=== PATIENT | female | born 1945 | race Caucasian/White ===

== ENCOUNTER 2019-09-27 10:25 | Emergency (ER) | payer MEDICARE, SELFPAY ==
[2019-09-27 10:30] VITALS: BP 157/70; PULSE 52; RESP 18; TEMP 36.6; O2SAT 100
--- NOTE | 2019-09-27 10:39 | ED.GENADULT ---
HPI - General Adult General Chief complaint: Urogenital-Female Stated complaint: UTI SYMPTOMS Time Seen by Provider: 09/27/19 10:54 Source: patient Mode of arrival: ambulatory Limitations: no limitations History of Present Illness HPI narrative: 74-year-old female patient presents to the [facility] with complaints of urinary symptoms for the past 2 to 3 days. Patient states she has been taking some Pyridium that she had leftover from a previous bladder infection. Patient states that she has had some burning with urination along with urgency. Denies any fevers. Patient states she has had some left lower abdominal pain but denies any nausea, vomiting or diarrhea. Related Data Allergies Allergy/AdvReac Type Severity Reaction Status Date / Time lisinopril Allergy Unknown swollen Verified 09/27/19 10:39 tongue naproxen Allergy Unknown Nose bleeds Verified 09/27/19 10:39 Cuzmfcf-Ctk-Vmm Reductase Allergy Unknown Stomach Verified 09/27/19 10:39 Inhibitor pain Sulfa (Sulfonamide Allergy Unknown Rash Verified 09/27/19 10:39 Antibiotics) Review of Systems Review of Systems: Narrative: CONSTITUTIONAL: Denies fever, chills, or sweats. EYES: Denies visual changes, redness, or discharge. ENT: Denies rhinorrhea, congestion, sore throat, or otalgia. CARDIOVASCULAR: Denies chest pain, palpitations, or edema. RESPIRATORY: Denies cough or dyspnea. GASTROINTESTINAL: Denies abdominal pain, nausea, vomiting, or diarrhea. GENITOURINARY: Denies dysuria or hematuria. Positive pain with urination, and frequency x2 to 3 days. SKIN: Denies rash or itching. MUSCULOSKELETAL: Denies back pain, joint pain, or myalgia. NEUROLOGIC: Denies headache, numbness, or weakness. PSYCHIATRIC: Denies anxiety or depression. 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 Surgical History Surgical History H/O tubal ligation H/O: hysterectomy History of bowel resection History of cholecystectomy Hx of tonsillectomy Status post cataract extraction Family History Family History Father Hypertension Family history of arthritis Family history of lung cancer Family history of colonic diverticulitis Family history of malignant neoplasm Mother Hypertension Family history of arthritis Family history of malignant neoplasm of breast in first degree relative Family history of colonic diverticulitis Sibling Patient's sister is in good health Family history of chronic obstructive pulmonary disease Social History Social History Smoking status: Never smoker Alcohol intake: never Comments At the time of my signature I agree with nursing past medical history, surgical, social, and family history. There is no relevant family history pertinent to the presenting complaint. Exam Narrative: Exam Narrative: GENERAL: Well-appearing, well-nourished, and in no acute distress. HEAD: Normocephalic, atraumatic. EYES: PERRLA and EOMI. ENT: Nares clear, no rhinorrhea or epistaxis. Mucous membranes moist. NECK: Supple. No lymphadenopathy CHEST: Clear to auscultation. No respiratory distress. HEART: Regular rate and rhythm. No murmur heard. Normal peripheral pulses. ABDOMEN: Soft, nontender, nondistended, normal active bowel sounds. No CVA tenderness on percussion. EXTREMITIES: Normal range of motion. No edema. SKIN: Warm, dry, no rash. NEURO: No focal deficits. Alert and oriented x3. Course Vital Signs Vital signs: Vital Signs Temperature 36.6 C 09/27/19 10:30 Pulse Rate 52 L 09/27/19 10:30 Respiratory Rate 18 09/27/19 10:30 Blood Pressure 157/70 H 09/27/19 10:30 Pulse Oximetry 100 09/27/19 10:30 Temperature 36.6 C 09/27/19 10:30 Pulse Rate 52 L
== END 2019-09-27 11:12 | disposition home or self-care (01) ==
PROVIDERS: Emergency Provider Nurse Practitioner Family; PCP Internal Medicine
DX: N30.00 Acute cystitis without hematuria (principal); I10 Essential (primary) hypertension; K21.9 Gastro-esophageal reflux disease without esophagitis; M19.90 Unspecified osteoarthritis, unspecified site
CPT/HCPCS: 81003; 87077; 87086; 87088; 87186; 99213; G0463

== ENCOUNTER 2019-12-27 08:43 | Outpatient (CLI) | payer MEDICARE, SELFPAY ==
--- NOTE | ~2019-12-27 | MM_ITS ---
EXAMINATION: MM screening [facility] BI w saul HISTORY: Screening mammogram, family history of breast cancer in her mother and sister. TECHNIQUE: Craniocaudal and mediolateral oblique 3-D tomosynthesis images were obtained and synthetic 2-D images were generated. CAD analysis was submitted and interpreted. COMPARISON: 12/17/2018, 11/27/2017, 04/11/2016, 07/31/2015, 04/07/2011 BREAST PARENCHYMAL COMPOSITION: The breasts are almost entirely fatty. FINDINGS: There is a chronic stable focal asymmetry of the upper left breast with biopsy change. Ther e is no evidence of suspicious mass, calcification, or architectural distortion to suggest malignancy in either breast. There has been no suspicious interval change. IMPRESSION: 1. No mammographic evidence of malignancy. 2. Recommend routine screening mammography in one year. BI-RADS Category 2: Benign finding(s). Reviewed, dictated and finalized at location A.
== END 2019-12-27 08:44 | disposition home or self-care (01) ==
PROVIDERS: PCP Internal Medicine; Visit Provider Internal Medicine
DX: Z12.31 Encounter for screening mammogram for malignant neoplasm of breast (principal)
CPT/HCPCS: 77063; 77067

== ENCOUNTER 2020-02-09 08:38 | Outpatient (CLI) | payer MEDICARE, SELFPAY ==
[2020-02-09 09:39] LABS: Hemoglobin A1C 6.4 % (<5.7)
[2020-02-09 09:41] LABS: Alanine Aminotransferase 34 U/L (4-35); Albumin Level 4.5 g/dL (3.5-5.1); Alkaline Phosphatase 55 U/L (38-126); Aspartate Amino Transferase 58 U/L (14-36); Bilirubin,Total 0.5 mg/dL (0.2-1.3); Blood Urea Nitrogen 24 mg/dL (7-17); Calcium 9.3 mg/dL (8.4-10.2); Carbon Dioxide 24 mmol/L (22-30); Chloride 104 mmol/L (98-107); Cholesterol 178 mg/dL (0-200); Estimated Glomerular Filt Rate 44; Glucose 116 mg/dL (65-105); HDL Direct 32 mg/dL; Potassium 4.3 mmol/L (3.4-5.0); Sodium 138 mmol/L (137-145); Triglycerides 200 mg/dL (<150)
[2020-02-09 09:52] LABS: LDL Cholesterol Direct 121 mg/dL
== END 2020-02-09 08:39 | disposition home or self-care (01) ==
PROVIDERS: PCP Internal Medicine; Visit Provider Nurse Practitioner
DX: E78.2 Mixed hyperlipidemia (principal); R73.03 Prediabetes; L93.1 Subacute cutaneous lupus erythematosus
CPT/HCPCS: 36415; 80048; 80061; 80076; 83036; 86038

== ENCOUNTER 2020-06-22 07:11 | Outpatient (CLI) | payer MEDICARE, SELFPAY ==
[2020-06-22 07:38] LABS: Hemoglobin A1C 5.7 % (<5.7)
== END 2020-06-22 07:12 | disposition home or self-care (01) ==
PROVIDERS: PCP Internal Medicine; Visit Provider Nurse Practitioner
DX: R73.09 Other abnormal glucose (principal)
CPT/HCPCS: 36415; 83036

== ENCOUNTER 2020-12-21 07:03 | Outpatient (CLI) | payer MEDICARE, SELFPAY ==
[2020-12-21 07:40] LABS: Alanine Aminotransferase 26 U/L (4-35); Albumin Level 4.1 g/dL (3.5-5.1); Alkaline Phosphatase 50 U/L (38-126); Anion Gap 8 mmol/L (8-16); Aspartate Amino Transferase 45 U/L (14-36); Bilirubin,Total 0.3 mg/dL (0.2-1.3); Blood Urea Nitrogen 27 mg/dL (7-17); Calcium 9.1 mg/dL (8.4-10.2); Carbon Dioxide 26 mmol/L (22-30); Chloride 106 mmol/L (98-107); Cholesterol 148 mg/dL (0-200); Estimated Glomerular Filt Rate 40; Glucose 120 mg/dL (65-105); HDL Direct 35 mg/dL; Potassium 3.8 mmol/L (3.4-5.0); Sodium 140 mmol/L (137-145); Triglycerides 155 mg/dL (<150)
[2020-12-21 07:51] LABS: LDL Cholesterol Direct 88 mg/dL
[2020-12-21 07:55] LABS: Hemoglobin A1C 6.2 % (<5.7)
[2020-12-21 08:48] LABS: MALB Creatinine Ratio 10.8 mg/g (0-30); Microalbumin Urine Random 13.8 mg/L (0-16.7)
== END 2020-12-21 07:04 | disposition home or self-care (01) ==
PROVIDERS: PCP Internal Medicine; Visit Provider Nurse Practitioner
DX: R73.03 Prediabetes (principal); E78.2 Mixed hyperlipidemia; Z78.0 Asymptomatic menopausal state
CPT/HCPCS: 36415; 80053; 80061; 82043; 83036

== ENCOUNTER 2020-12-29 09:49 | Outpatient (CLI) | payer MEDICARE, SELFPAY ==
--- NOTE | ~2020-12-29 | MM_ITS ---
EXAMINATION: MM screening [facility] w saul HISTORY: Screening mammogram TECHNIQUE: Craniocaudal and mediolateral oblique 3-D tomosynthesis images were obtained and synthetic 2-D images were generated. CAD analysis was submitted and interpreted. COMPARISON: 12/27/2019, 12/17/2018, 11/27/2017 bilateral digital screening mammogram examinations BREAST PARENCHYMAL COMPOSITION: The breasts are almost entirely fatty. FINDINGS: Prior reported benign left breast biopsy; stable postbiopsy change posteriorly in the upper outer quadrant of the left breast.. There is no evidence of suspicious mass, calcification, or archi tectural distortion to suggest malignancy in either breast. There has been no suspicious interval yaritza nge. IMPRESSION: 1. No mammographic evidence of malignancy. 2. Recommend routine screening mammography in one year. BI-RADS Category 2: Benign finding(s). Reviewed, dictated and finalized at location A.
--- NOTE | ~2020-12-29 | DEXA_ITS ---
Bone Density Report Name: Yue Gaviria Age: 75 Sex: Female Ethnicity: White Date of : 1945 Indication: postmenopausal; asthma or emphysema; hysterectomy; Referring Provider: Danisha Burris Study: Bone densitometry was performed. Exam Date: December 29, 2020 Accession number: [id number] Bone Density: Region BMD T-score Z-score Classification AP Spine (L1, L2, L4) 1.178 1.3 3.6 Normal Femoral Neck (Left) 0.898 0.4 2.5 Normal Total Hip (Left) 1.010 0.6 2.3 Normal Total Hip Bilateral Avg 1.047 0.9 2.6 Normal Femoral Neck (Right) 0.903 0.5 2.5 Normal Total Hip (Right) 1.082 1.1 2.9 Normal World Health Organization criteria for BMD impression classify patients as: Normal (T-score at or above -1.0), Osteopenia (T-score between -1.0 and -2.5), or Osteoporosis (T-score at or below -2.5). 10-year Fracture Risk: FRAX not reported because: All T-scores for Spine Total, Hip Total, Femoral Neck at or above -1.0 Previous Exams: Region Exam Age BMD T-score BMD Change BMD Change Date g/cm2 vs Baseline vs Previous AP Spine(L1, L2, L4) 12/29/2020 75 1.178 1.3 -0.183(-13.5%) -0.183(-13.5%) 01/05/2008 62 1.362 3.0 Total Hip(Left) 12/29/2020 75 1.010 0.6 -0.146(-12.7%) -0.146(-12.7%) 01/05/2008 62 1.157 1.8 Total Hip(Right) 12/29/2020 75 1.082 1.1 -0.077(-6.6%)# -0.077(-6.6%)# 01/05/2008 62 1.158 1.8 *Denotes significance at 95% confidence level, LSC for AP Spine = 0.022 g/cm2, LSC for Total Hip = 0.027 g/cm2 Clinical Information Provided by Patient: Has the following medical conditions: Asthma or Emphysema, Hysterectomy Patient maximum height was 62 No regular weight bearing exercise Drinks caffeinated beverages Onset of menses at age 16 Number of children 2 Impression: The patient has normal bone mass. No significant bone loss was observed. Discussion: LOW RISK OF FRACTURE; BONE DENSITY IS WELL ABOVE THE MINIMUM DESIRABLE LEVEL AND ABOVE AVERAGE FOR AGE AND SEX AT ALL SKELETAL SITES TESTED. This person's bone density is above expected limits for age and sex. This is rarely clinically significant, but should be pursued if there are significant musculoskeletal complaints. The patient should follow a healthful lifestyle (good nutrition with adequate calcium and vitamin D, and appropriate weight-bearing exercise). Follow-Up: Consider repeating this study in 5 years or sooner if there is some new clinical indication. Repor
== END 2020-12-29 09:50 | disposition home or self-care (01) ==
PROVIDERS: PCP Internal Medicine; Visit Provider Nurse Practitioner
DX: Z12.31 Encounter for screening mammogram for malignant neoplasm of breast (principal); Z78.0 Asymptomatic menopausal state
CPT/HCPCS: 77063; 77067; 77080

== ENCOUNTER 2020-12-31 12:04 | Outpatient (CLI) | payer MEDICARE, SELFPAY ==
--- NOTE | ~2020-12-31 | XR_ITS ---
EXAMINATION: XR thoracic spine 3V DATE: 12/31/2020 12:30 INDICATION: Thoracic back pain TECHNIQUE: AP, lateral and lateral swimmer's views of the thoracic spine were obtained. COMPARISON: None. FINDINGS: There is mild thoracic dextrocurvature. No fracture, dislocation, or subluxation is identif ied. The vertebral body heights and alignment are normal. Small degenerative osteophytes project from the anterior endplates of multiple vertebral bodies. IMPRESSION: 1. Mild thoracic spondylosis without acute findings. Reviewed, dictated and finalized at location A.
== END 2020-12-31 12:05 | disposition home or self-care (01) ==
PROVIDERS: PCP Internal Medicine; Visit Provider Internal Medicine
DX: M54.9 Dorsalgia, unspecified (principal); M47.814 Spondylosis without myelopathy or radiculopathy, thoracic region
CPT/HCPCS: 72072

== ENCOUNTER 2021-04-19 06:53 | Outpatient (CLI) | payer MEDICARE, SELFPAY ==
--- NOTE | ~2021-04-19 | CT_ITS ---
EXAMINATION: CT abdomen pelvis wo con DATE: 04/19/2021 07:14 INDICATION: Left lower quadrant pain TECHNIQUE: Computed tomography (CT) of the abdomen and pelvis was performed without intravenous contr ast. The dose-length product (DLP) was 1003.19 mGy-cm. Automated exposure control and iterative recon struction technique were employed. COMPARISON: 08/29/2018 FINDINGS: The lung bases are clear. The heart size is normal. The gallbladder is surgically absent. T here is mild enlargement of the common bile duct and central intrahepatic ducts which is likely due t o post cholecystectomy state. The liver, spleen, pancreas, and adrenal glands are normal. A 1.4 cm le [place] of the left kidney containing macroscopic fat is consistent with an angiomyolipoma. There is a 3 .4 cm cyst of the right kidney. Colonic diverticulosis is noted. There is subtle fat stranding at the junction of the descending and proximal sigmoid colon. No perforation or abscess are identified. The re are surgical changes at the cecum. There is no free intraperitoneal gas or evidence of bowel obstr uction. There is a 3.5 x 2.4 cm low-density mass situated between the inferior vena cava and third po rtion of the duodenum. The mass measures probably fluid attenuation with crescentic soft tissue densi ty at the cranial aspect. Characterization is limited by the absence of intravenous contrast. No defi nite communication with the bowel lumen is identified. IMPRESSION: 1. Mild uncomplicated diverticulitis at the junction of the descending and sigmoid colon. 2. Indeterminate retroperitoneal mass in the right upper abdomen which could reflect lymphadenopathy or primary neoplasm. Recommend further evaluation with endoscopic ultrasound and/or PET/CT. Reviewed, dictated and finalized at location A. IMPRESSION: 1. Mild uncomplicated diverticulitis at the junction of the descending and sigm oid colon. 2. Indeterminate retroperitoneal mass in the right upper abdomen which could re flect lymphadenopathy or primary neoplasm. Recommend further evaluation with en doscopic ultrasound and/or PET/CT.
== END 2021-04-19 06:54 | disposition home or self-care (01) ==
PROVIDERS: PCP Internal Medicine; Visit Provider Nurse Practitioner
DX: K57.40 Diverticulitis of both small and large intestine with perforation and abscess without bleeding (principal); R10.9 Unspecified abdominal pain; N28.1 Cyst of kidney, acquired; K57.32 Diverticulitis of large intestine without perforation or abscess without bleeding
CPT/HCPCS: 74176

== ENCOUNTER 2021-05-02 12:13 | Outpatient (CLI) | payer MEDICARE, SELFPAY ==
--- NOTE | ~2021-05-02 | PE_ITS ---
EXAMINATION: PET skull to mid thigh DATE: 05/02/2021 14:12 INDICATION: Retroperitoneal mass on CT TECHNIQUE: Blood glucose level was 105 mg/dL. 8.78 mCi of 18-fluorodeoxyglucose (18-FDG) was administ ered i.v. Low dose computed tomography (CT) images were acquired from the base of the brain to the pr oximal thighs for attenuation correction and anatomic localization. Positron emission tomography (PET ) images were acquired in the same distribution beginning 55 minutes after injection. The dose-length product (DLP) was 1041.81 mGy-cm. COMPARISON: CT, 04/19/2021 FINDINGS: Head/neck: No abnormal FDG uptake is identified. Cyst or mucous retention cysts are noted in the maxi llary sinuses. Chest: No abnormal FDG uptake is identified. There is mild dependent atelectasis. No focal airspace o pacities are identified. There are a few small nodules without FDG uptake in the right lung which analy sure up to 4 mm. There are no pathologically enlarged thoracic lymph nodes. Cardiomegaly is noted. Abdomen/pelvis/proximal thighs: No abnormal FDG uptake is identified. Physiologic FDG activity is pre sent in the bowel and urinary tract. There is a 3.4 x 2.3 cm right retroperitoneal mass without assoc iated FDG activity. The mass remains predominantly fluid attenuation. The liver, spleen, pancreas, an d adrenal glands are normal. There is a 3.4 cm cyst of the right kidney. A 1.4 cm left kidney mass co ntaining macroscopic fat is consistent with an angiomyolipoma. The appendix is normal. No pathologica lly enlarged abdominal or pelvic lymph nodes are identified. There is no free intraperitoneal gas or evidence of bowel obstruction. Colonic diverticulosis is present without evidence of diverticulitis. Musculoskeletal: No abnormal FDG uptake is identified. There is severe lumbar spondylosis and moderat e cervical spondylosis. IMPRESSION: 1. Right retroperitoneal mass without associated FDG activity. Finding is likely benign with differen tial including duodenal diverticulum although there is no clear evidence of communication with the du odenum. Lymphoma or gastrointestinal stromal tumor would be less likely given absent FDG uptake. Furt her evaluation with endoscopic ultrasound is recommended. Reviewed, dictated and finalized at location A. IMPRESSION: 1. Right retroperitoneal mass without associated FDG activity. Finding is likel y benign with differential including duodenal diverticulum although there is no clear evidence of communication with the duodenum. Lymphoma or gastrointestina l stromal tumor would be less likely given absent FDG uptake. Further evaluatio n with endoscopic ultrasound is recommended.
[2021-05-02 12:50] LABS: Glucose Point of Care 105 mg/dl (65-105)
== END 2021-05-02 12:14 | disposition home or self-care (01) ==
LOC: ANHIMG 12:16
PROVIDERS: PCP Internal Medicine; Visit Provider Nurse Practitioner
DX: R19.00 Intra-abdominal and pelvic swelling, mass and lump, unspecified site (principal); R93.5 Abnormal findings on diagnostic imaging of other abdominal regions, including retroperitoneum
CPT/HCPCS: 78815; A9552

== ENCOUNTER 2021-05-28 07:21 | Inpatient (IN) | payer MEDICARE, SELFPAY ==
[2021-05-28] VITALS (36 sets, daily range): BP systolic 138–186; BP diastolic 66–102; PULSE 81–104; RESP 15–27; TEMP 36.4–37.1; O2SAT 82–100; BMI 35.4
--- NOTE | ~2021-05-28 | XR_ITS ---
EXAMINATION: XR abdomen NG/feed tube insert EXAM DATE: 05/28/2021 11:38 INDICATION: NG placement. TECHNIQUE: Frontal projection(s) of the abdomen for interpretation. Comparison is made to prior exami nation from 06/03/2019. FINDINGS: Feeding tube tip and side-port project over gastric cardia, expected position. Several mode rately distended air-filled small bowel loops in the upper abdomen. Cholecystectomy clips. Lung bases are clear. IMPRESSION: 1. Feeding tube in position. 2. Mildly dilated small bowel. Correlate with recent CT results. Reviewed, dictated and finalized at location A.
--- NOTE | ~2021-05-28 | XR_ITS ---
EXAMINATION: XR chest 2V EXAM DATE: 05/28/2021 07:57 INDICATION: Shortness of breath, nausea and weakness. TECHNIQUE: Frontal and lateral projections of the chest obtained and reviewed. There is no prior fr[place] dy for comparison. FINDINGS: There are cholecystectomy clips. The lungs are clear. There are no pleural effusions. Th e cardiomediastinal silhouette is within normal limits. There is no pneumothorax suspected. The bon es and soft tissues are unremarkable. IMPRESSION: No acute cardiopulmonary findings. Reviewed, dictated and finalized at location A.
--- NOTE | ~2021-05-28 | XR_ITS ---
EXAMINATION: XR sm bowel follow through WS EXAM DATE: 05/29/2021 13:49 INDICATION: Possible SBO, retroperitoneal mass. TECHNIQUE: Radiologist Chief Of Breast Imaging radiograph was acquired. Omnipaque/water soluble solution administered for small bree wel exam performed by radiologist De Casarez M.D.. Spot images of the terminal ileum were acquired. Pulsed dose reduction fluoroscopy was used with fluoroscopic time of 0.1. The DAP for this procedu re was 8.5 Gycm2. A total of 27 images obtained for the exam. Correlation is made to CT abdomen pelv is from yesterday. FINDINGS: Feeding tube in position on anesthesia technician image. There are cholecystectomy clips. Ileal and jejuna l fold patterns are normal. There is no small bowel wall thickening or mass effect displacing small bowel. There are no intraluminal filling defects identified. There is no small bowel dilation. Ter akbar ileum is normal in appearance. Contrast reached the colon 45 minutes, normal. IMPRESSION: Unremarkable small bowel follow-through exam. Reviewed, dictated and finalized at location A.
--- NOTE | ~2021-05-28 | XR_ITS ---
EXAMINATION: XR abdomen obstructive series DATE: 05/29/2021 08:51 INDICATION: Partial small bowel obstruction. TECHNIQUE: Frontal supine and upright views of the abdomen were obtained. COMPARISON: 05/28/2021 FINDINGS: Is a gastric tube tip in proximal side port in the body the stomach. Cholecystectomy clips in the rig ht upper quadrant. Additional surgical clips projecting over the left side of the lower lumbar spine in the right hemipelvis. Anastomotic suture line in the right lower quadrant. No dilated loops of gas -filled bowel in the visualized abdomen. No free intraperitoneal gas. The mid to lower lung zones a re clear. Heart size is normal. Moderate lumbar spondylosis. IMPRESSION: 1. No free intraperitoneal gas or dilated gas-filled loops of bowel to suggest obstruction. Reviewed, dictated and finalized at location A.
--- NOTE | ~2021-05-28 | US_ITS ---
EXAMINATION: US venous doppler LE EXAM DATE: 05/29/2021 09:07 INDICATION: Elevated d-dimer. TECHNIQUE: Multiple grayscale, color flow and Doppler images of the lower extremity deep venous syste ms bilaterally were obtained and reviewed. There is no prior study for comparison. FINDINGS: Right side: The right common femoral, femoral and profunda veins demonstrate normal color flow, respi ratory variation, augmentation and compressibility. Compressibility, color flow confirmed within the right popliteal, posterior tibial, peroneal, and greater saphenous veins. Left side: The left common femoral, femoral and profunda veins demonstrate normal color flow, respira tory variation, augmentation and compressibility. Compressibility, color flow confirmed within the l eft popliteal, posterior tibial, peroneal, and greater saphenous veins. IMPRESSION: 1. No lower extremity deep venous thrombosis bilaterally. Reviewed, dictated and finalized at location A.
--- NOTE | ~2021-05-28 | CT_ITS ---
EXAMINATION: CTA chest PE abdomen pel DATE: 05/28/2021 08:52 INDICATION: Shortness of breath. Vomiting and elevated d-dimer. TECHNIQUE: Computed tomography (CT) pulmonary angiogram of the chest was performed with 100 mL Omnipa que-350 intravenous contrast. Additional 3D reconstructions utilizing coronal maximum intensity proje ction (MIP) were performed. CT of the abdomen and pelvis was performed with intravenous contrast util izing the same contrast bolus following a short delay. Automated exposure control and iterative recon struction technique were employed. The dose-length product was 1198.57 mGy-cm. COMPARISON: Chest CT dated 10/22/2016, CT abdomen and pelvis dated 04/19/2021 and PET/CT dated 05/02/2021. FINDINGS: Chest: Excellent contrast opacification of the pulmonary arteries. There is moderate streak artifact from de nse contrast in the superior vena cava and right atrium. Mild scattered respiratory motion artifact w hich does not significantly limit evaluation. No pulmonary embolism. Mild emphysema. A few small calc ified and noncalcified pulmonary nodules in the right lung the largest in the right middle lobe measu ring 3 mm which is unchanged since 10/22/2016 . No pneumonia, pulmonary edema, pleural effusion or pneu mothorax. Mild cardiomegaly. No pericardial effusion. Small sliding-type hiatal hernia. No pathologic ally enlarged thoracic lymphadenopathy. Mild thoracic spondylosis. Abdomen/pelvis: Unchanged dilation the common bile duct which measures up to 2 cm in diameter and which tapers gradua lly in the distal duct likely related to prior cholecystectomy with surgical clips the gallbladder fo ssa. Liver is normal with no significant intrahepatic biliary ductal dilation. Spleen, pancreas and b ilateral adrenal glands are normal. 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 The re are 3 additional subcentimeter fat attenuation right renal angiomyolipomas, the largest measuring 5 mm. 2.5 cm fluid attenuation right renal cyst. Bladder is normal. The uterus is not identified and has likely been surgically resected. There are a few fluid-filled dilated loops of small bowel measur ing up to 3.3 cm in maximal diameter which extend to a relative transition point in the right pelvis where there is wall thickening along short segment of small bowel along some mild surrounding inflamm atory stranding consistent with a localized enteritis. The more distal small bowel is decompressed. A ppendix is surgically absent with suture line at the tip the cecum. There is moderate colonic diverti culosis with a sigmoid predominance. There is no adjacent inflammatory change to suggest diverticuli tis. No free intraperitoneal gas or fluid. Interval enlargement of an indeterminate now 3.8 x 3.1 cm retroperitoneal mass with heterogeneous attenuation located between the head of the pancreas, the duo denum and the inferior vena cava. This was without FDG activity on an intervening PET/CT which favors a benign etiology. No other pathologically enlarged abdominal or pelvic lymphadenopathy. Moderate to severe lumbar spondylosis. IMPRESSION: 1. No pulmonary embolism. 2. Likely early or partial small bowel obstruction upstream from a short segment of ileum in the righ t pelvis which demonstrates wall thickening with mild surrounding inflammatory stranding consistent w ith a localized enteritis which could be either infectious, inflammatory or less likely ischemic in e tiology. 3. Interval enlargement of a now 3.8 x 3.1 cm heterogeneous retroperitoneal mass located between the head of the pancreas, duodenum and inferior vena cava which was without FDG activity on recent PET st [facility]. Differential would include neoplasm such as GI stromal tumor (more likely benign than malignant given the absence of FDG activity on prior PET study), duodenal diverticulum, complex cyst or thrombo sed aneurysm. Would consider further evaluation w
--- NOTE | 2021-05-28 07:46 | ECG_ITS ---
Measurements Intervals Vida Rate: 86 P: 13 OR: 182 QRS: -39 QRSD: 113 T: 71 QT: 379 QTc: 455 Interpretive Statements SINUS RHYTHM LEFT AXIS DEVIATION INTRAVENTRICULAR CONDUCTION DELAY POOR R WAVE PROGRESSION, ANTERIOR LEADS BORDERLINE ST-T WAVE ABNORMALITY- HIGH LATERAL LEADS BASELINE ARTIFACT- I, II, III, AVR, AVF, V2-V6 BORDERLINE ECG Electronically Signed On 05-28-2021 8:51:16 CDT by Luis Fernando Tucker D.O.
--- NOTE | 2021-05-28 07:47 | ED.NAVMDI ---
HPI - Nausea/Vomiting/Diarrhea General Chief complaint: Nausea/Vomiting/Diarrhea Stated complaint: vomiting Time Seen by Provider: 05/28/21 07:26 Source: patient and RN notes reviewed Mode of arrival: ambulatory Limitations: no limitations History of Present Illness HPI Narrative: This is a 76 year old female who presents for evaluation of nausea and vomiting. Yesterday she developed lightheadedness and nausea while she was shopping. On her return home, she develop vomiting. She reports multiple episode of vomiting last night and this morning. She reports vomiting is worse with movement. She denies associated abdominal pain, diarrhea or fever. She does complain of shortness of breath for 2 days with activity but denies chest pain. She notes 1 week ago she had EUS performed of [facility] that she was told was used to evaluated a benign mass on per pancreas. She has not had any issues since her procedure. She states she was told she would receive a call if anything was determined to be wrong, and she has not heard from any one. Related Data Allergies Allergy/AdvReac Type Severity Reaction Status Date / Time lisinopril Allergy Unknown swollen Verified 05/28/21 12:52 tongue naproxen Allergy Unknown Nose bleeds Verified 05/28/21 12:52 Wluwubh-WDD-QcD Reductase Allergy Unknown Stomach Verified 05/28/21 12:52 Inhibitor pain [Hjnucew-Ctx-Swx Reductase Inhibitor] Sulfa (Sulfonamide Allergy Unknown Rash Verified 05/28/21 12:52 Antibiotics) Review of Systems Review of Systems: All systems reviewed & are unremarkable except as noted in HPI and below PMFSH Past Medical History Medical History (Updated 05/28/21 @ 17:07 by Kierra Parra MD) Bilateral hip pain Chronic GERD Essential (primary) hypertension Exposure to COVID-19 virus Exposure to COVID-19 virus 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 History of bowel resection 2018 - Right hemicolectomy with ileum to transverse colon anastomosis following cecal diverticulitis with perforation and abscess History of cholecystectomy Laparoscopic cholecystectomy History of total hysterectomy with bilateral salpingo-oophorectomy (BSO) At age 35-40, she had an abdominal hysterectomy with left salpingo-oophorectomy. 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 Hx of tonsillectomy Status post cataract extraction Family History Family History Father Hypertension Family history of arthritis Family history of lung cancer Family history of colonic diverticulitis Family history of malignant neoplasm Mother Hypertension Family history of arthritis Family history of malignant neoplasm of breast in first degree relative Family history of colonic diverticulitis Sibling Patient's sister is in good health Family history of chronic obstructive pulmonary disease Social History Social History Social History: the patient is and has 2 sons. Both of her sons of the durable power assistant district attorney for healthcare. The patient wishes to be a full code. The patient is a lifelong nonsmoker does not use any alcohol marijuana or illicit drugs. 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 code status full code. Smoking status: Never smoker Second hand tobacco smoke exposure: No Alcohol intake: never Substance use: never Substanc
[2021-05-28 07:58] LABS: Basophils Absolute Auto 0.1 K/mm3 (0.0-0.1); Basophils Percent Auto 0.9 % (0.2-1.2); Eosinophils Absolute Auto 0.1 K/mm3 (0-0.3); Eosinophils Percent Auto 0.6 % (0-4.4); Hematocrit 43.8 % (37.0-47.0); Hemoglobin 14.2 g/dL (12.0-15.0); Immature Granulocyte Absolute 0.04 K/mm3 (0.00-0.031); Immature Granulocyte Percent A 0.5 % (0-0.5); Lymphocytes Absolute Auto 0.98 K/mm3 (0.9-3.2); Lymphocytes Percent Auto 12.7 % (18.3-44.2); Mean Corpuscular HGB Conc 32.4 g/dl (32-36); Mean Corpuscular Hemoglobin 27.5 pg (26-34); Mean Corpuscular Volume 84.7 fl (80-100); Monocytes Absolute Auto 0.4 K/mm3 (0.1-0.6); Monocytes Percent Auto 5.2 % (2.6-8.5); Neutrophils Absolute Auto 6.2 K/mm3 (1.3-6.7); Neutrophils Percent Auto 80.1 % (45.5-73.1); Platelet Count Result 262 k/mm3 (150-375); Red Blood Count 5.17 M/mm3 (4.2-5.4); Red Cell Distribution Width 14.5 % (11.5-14.5); White Blood Count 7.7 K/mm3 (4.5-10.0)
[2021-05-28] MEDS: ONDANSETRON INJ 4 MG/2 ML VIAL IV PUSH (08:03)
[2021-05-28] MEDS: SODIUM CHLORIDE 0.9% IV 1,000 ML 999 ML IV CONT ×2 (08:04→09:10)
--- NOTE | 2021-05-28 08:07 | PC.NURSE ---
lab, markus, MG, BNP, Trop I Baseline
[2021-05-28 08:14] LABS: Alanine Aminotransferase 25 U/L (4-35); Albumin Level 4.9 g/dL (3.5-5.1); Alkaline Phosphatase 59 U/L (38-126); Anion Gap 14 mmol/L (8-16); Aspartate Amino Transferase 48 U/L (14-36); Bilirubin,Total 0.6 mg/dL (0.2-1.3); Blood Urea Nitrogen 32 mg/dL (7-17); Calcium 10.2 mg/dL (8.4-10.2); Carbon Dioxide 25 mmol/L (22-30); Chloride 100 mmol/L (98-107); Estimated CRCL calculation 28 ml/min; Estimated Glomerular Filt Rate 32; Glucose 145 mg/dL (65-110); Lipase 78 U/L (23-300); Potassium 3.8 mmol/L (3.4-5.0); Sodium 139 mmol/L (137-145)
[2021-05-28 08:16] LABS: Magnesium 1.8 mg/dL (1.6-2.3)
[2021-05-28 08:24] LABS: D Dimer 1.36 ug/mL (<0.48)
[2021-05-28 08:29] LABS: NT Pro B Type Natriuretic Pept 292 pg/mL (5-100); Troponin I 0.019 ng/mL (0.000-0.034)
[2021-05-28 09:16] LABS: Add Urine Microscopic? NO; Appearance Urine Clear (Clear); Bilirubin Urine Negative (Negative); Blood Urine Negative (Negative); Color Urine Yellow (Yellow); Glucose Urine UA Negative (Negative); Ketones Urine Negative (Negative); Leukocyte Esterase Ur Negative LEU/UL (Negative); Nitrate Urine Negative (Negative); Protein Urine Negative (Negative); Urobilinogen Urine Negative mg/dL (<2.0)
[2021-05-28 09:31] LABS: Specific Grav Ur 1.039 (1.001-1.035)
[2021-05-28] MEDS: hydrALAZINE HCL 20 MG/ML VIAL 10 MG IV PUSH (12:02)
--- NOTE | 2021-05-28 12:07 | PC.NURSE ---
Hospitalist Ellen at bedside
--- NOTE | 2021-05-28 12:20 | ADMGEN ---
This patient, Yue Gaviria, was admitted to 2 Medical Room 256-. Patient/family oriented to hospital policies and general routines including ID bracelet, bed and alarms, visiting hours, pain management, procedures, bathroom and other care routines, personal items, smoking policy, room service/diet, and visiting hours. Information on how to activate the Rapid Response Team has been discussed. Patient/Family are encouraged to report perceived risks to care and to ask questions if they do not understand what they are told or what they should do.
[2021-05-28] MEDS: SODIUM CHLORIDE 0.9% IV 1,000 ML 125 ML IV CONT ×2 (12:44→20:21)
[2021-05-28] MEDS: PHENOL/SOD PHENO SPRAY CHERRY (*BKC) 1 SPRAY MUCOUS MEM (13:14)
--- NOTE | 2021-05-28 13:27 | PM.IMHP ---
H&P: HPI History of Present Illness Date/Time: 05/28/21 13:27Thimar is a 76-year-old female patient who came to the emergency room for evaluation of nausea vomiting. The patient developed some lightheadedness and nausea while shopping yesterday. When she got home she started to vomit. She had multiple episodes of vomiting and felt bloated as well. The vomiting is worse when she moves. She denies any fever chills. She has also been short of breath for the last 2 days with activity. The patient notes that she had an EUS performed at [facility] approximately 1 week ago and reportedly was negative but is still waiting for the pathology report. She has not had any issues since that time. I have a copy of the note from the procedure dated 05/20/2021 which was performed by FELIPE Diamond please see endoscopy report for from other facility. Patient's D-dimer is 1.36 creatinine 1.6. Chest abdomen pelvis CTA was read as a follow 1. No pulmonary embolism. 2. Likely early or partial small bowel obstruction upstream from a short segment of ileum in the right pelvis which demonstrates wall thickening with mild surrounding inflammatory stranding consistent with a localized enteritis which could be either infectious, inflammatory or less likely ischemic in etiology. 3. Interval enlargement of a now 3.8 x 3.1 cm heterogeneous retroperitoneal mass located between the head of the pancreas, duodenum and inferior vena cava which was without FDG activity on recent PET study. Differential would include neoplasm such as GI stromal tumor (more likely benign than malignant given the absence of FDG activity on prior PET study), duodenal diverticulum, complex cyst or thrombosed aneurysm. Would consider further evaluation with endoscopic ultrasound. 4. Moderate diverticulosis. 5. Mild emphysema. NG tube was placed in the left near. The patient developed a nose bleed shortly after the NG tube was inserted and there is perez colored drainage in the suction canister. Surgery has been consulted. The patient was given Zofran, IV fluids, Tylenol, and a Hydralazine in the emergency room. The patient is being admitted to inpatient services the date of service of 05/28/2021. Chief Complaint: Abdominal pain Review of Systems Review of Systems: All systems reviewed & are unremarkable except as noted in HPI and below Constitutional: Constitutional: Reports as per HPI and Reports no additional constitutional complaints Eyes: Eyes: Reports as per HPI and Reports no additional eye complaints ENT: Reports system reviewed and no additional complaints, except as documented and Reports Normal hearing present Cardiovascular: Cardiovascular: Reports no additional cardiovascular complaints Respiratory: Respiratory: Reports no additional respiratory complaints and Reports no additional respiratory complaints Gastrointestinal: Gastrointestinal: Reports as per HPI and Reports no additional gastrointestinal complaints Musculoskeletal: Musculoskeletal: Reports no additional musculoskeletal complaints Integumentary/Breasts: Skin/Breast: Reports system reviewed and no additional complaints, except as docu and Reports as per HPI Neurologic: Reports system reviewed and no additional complaints, except as documented, Reports as per HPI and Reports Normal hearing present Psychiatric: Psychiatric: Reports no additional psychiatric complaints and Reports as per HPI Endocrine: Endocrine: Reports no additional endocrine complaints Hematologic/Lymphatic: Hematologic/Lymphatic: Reports no additional hematologic/lymphatic complaints Allergic/Immunologic: Allergic/Immunologic: Reports no additional allergic/immunologic complaints [facility] Past Medical History Medical History (Updated 05/28/21 @ 13:53 by Ellen Maya NP) Bilateral hip pain Chronic GERD Essential (primary) hypertension Exposure to COVID-19 virus Exposure to COVID-19 virus History of Michel's palsy History of diverticular
--- NOTE | 2021-05-28 15:54 | PM.CNGS ---
Assessment and Plan Assessment and plan (1) Bowel obstruction: Code(s): K56.609 - Unspecified intestinal obstruction, unspecified as to partial versus complete obstruction Status: Acute Assessment and Plan: CTA chest/abd/pelvis was reviewed and discussed with the patient in detail. This suggests an early or partial small bowel obstruction with a short segment of ileum in the right pelvis with wall thickening and mild surrounding inflammatory stranding. The etiology for this is not entirely clear. This could be related to an enteritis, but she has not had any recent diarrhea suggesting this cause. Could be an inflammatory process or also due to intra-abdominal adhesions, considering her significant history of abdominal surgery. Another consideration is small bowel diverticulitis, but she is not having pain and her WBC is normal. There is also a heterogenous retroperitoneal mass located between the head of the pancreas, duodenum, and IVC that measured 3.8 cm x 3.1 cm on the CTA, which was known to the patient prior to admission. She has been worked up for this over the past month (see note below). This cystic lesion appears to be separate from the small bowel obstruction. We will continue to initially treat the possible obstruction with conservative measures, including NG tube decompression, bowel rest, IV fluids, and antiemetics as needed. She is not having any abdominal pain and her exam is benign. Will repeat abdominal films tomorrow morning to re-evaluate. May consider a Gastrografin small bowel follow through if she continues to improve and depending on her x-ray results in the next 1-2 days. Okay to hold off on antibiotics for now. She has been afebrile with a normal WBC count. Will repeat labs in the morning and monitor. I discussed plan of care with the patient and answered all questions. (2) Pancreatic mass: Code(s): K86.89 - Other specified diseases of pancreas Status: Chronic Assessment and Plan: The patient has a pancreatic cystic lesion that was found initially on an outpatient CT scan in April through her PCP. This is currently being worked up and followed. She has seen a Dr. Turner at [facility] earlier this month who performed and endoscopic ultrasound and felt this appeared to be a cystic lesion and performed a fine needle aspiration with fluid sent for testing and cytology. Records have been requested from [facility] and I have reviewed these in her chart. (3) History of major abdominal surgery: Code(s): Z98.890 - Other specified postprocedural states Status: Acute Assessment and Plan: See previous abdominal surgeries as outline in the HPI. This suggests that there is a possibility that adhesions could be the cause of her SBO. See plan above. (4) Essential (primary) hypertension: Code(s): I10 - Essential (primary) hypertension Status: Chronic Assessment and Plan: BP elevated on admission, which has improved some but still elevated. Management per Hospitalist. (5) Hyperlipidemia: Code(s): E78.5 - Hyperlipidemia, unspecified Status: Chronic (6) Obesity (BMI 30-39.9): Code(s): E66.9 - Obesity, unspecified Status: Acute Additional Plan I have discussed the patient's case and plan of care with Dr. Michaels. Thank you for allowing us to see the patient in consultation and we will continue to follow along with you. History of Present Illness Consult details Consult date: 05/28/21 Reason for consult: other (Small bowel obstruction, Retroperintoneal mass) Requesting physician: Kierra Parra MD Narrative: This is a pleasant 76 yo female who presented to the ER early this morning with complaints of nausea, vomiting, and shortness of breath. She has an extensive history of abdominal surgeries, including a tubal ligation in her early 30's with a bleeding complication requiring a laparotomy and some repair of a blood vessel.
[2021-05-28] MEDS: FAMOTIDINE 20 MG/2 ML VIAL IV PUSH (20:49)
[2021-05-29 03:44] VITALS: BP 172/74; PULSE 82; RESP 17; TEMP 37.3; O2SAT 96
[2021-05-29] MEDS: SODIUM CHLORIDE 0.9% IV 1,000 ML 125 ML IV CONT (03:56)
[2021-05-29 05:42] LABS: Basophils Absolute Auto 0.1 K/mm3 (0.0-0.1); Basophils Percent Auto 1.2 % (0.2-1.2); Eosinophils Absolute Auto 0.1 K/mm3 (0-0.3); Eosinophils Percent Auto 1.7 % (0-4.4); Hematocrit 37.9 % (37.0-47.0); Immature Granulocyte Absolute 0.02 K/mm3 (0.00-0.031); Immature Granulocyte Percent A 0.5 % (0-0.5); Lymphocytes Absolute Auto 1.16 K/mm3 (0.9-3.2); Lymphocytes Percent Auto 28.5 % (18.3-44.2); Mean Corpuscular HGB Conc 31.7 g/dl (32-36); Mean Corpuscular Hemoglobin 27.5 pg (26-34); Mean Corpuscular Volume 86.9 fl (80-100); Mean Platelet Volume 10.5 fl (7.4-10.4); Monocytes Absolute Auto 0.3 K/mm3 (0.1-0.6); Monocytes Percent Auto 7.6 % (2.6-8.5); Neutrophils Absolute Auto 2.5 K/mm3 (1.3-6.7); Neutrophils Percent Auto 60.5 % (45.5-73.1); Platelet Count Result 150 k/mm3 (150-375); Red Blood Count 4.36 M/mm3 (4.2-5.4); Red Cell Distribution Width 14.4 % (11.5-14.5); White Blood Count 4.1 K/mm3 (4.5-10.0)
[2021-05-29 05:49] LABS: Lactic Acid Reflex 0.8 mmol/L (0.7-2.1)
[2021-05-29 05:55] LABS: Alanine Aminotransferase 18 U/L (4-35); Albumin Level 3.8 g/dL (3.5-5.1); Alkaline Phosphatase 44 U/L (38-126); Anion Gap 6 mmol/L (8-16); Aspartate Amino Transferase 42 U/L (14-36); Bilirubin,Total 0.5 mg/dL (0.2-1.3); Blood Urea Nitrogen 17 mg/dL (7-17); Calcium 8.6 mg/dL (8.4-10.2); Carbon Dioxide 23 mmol/L (22-30); Chloride 110 mmol/L (98-107); Estimated CRCL calculation 45 ml/min; Estimated Glomerular Filt Rate 54; Glucose 102 mg/dL (65-110); Lipase 63 U/L (23-300); Magnesium 1.8 mg/dL (1.6-2.3); Potassium 3.6 mmol/L (3.4-5.0); Sodium 139 mmol/L (137-145)
[2021-05-29 07:03] LABS: Thyroid Stimulating Hormone Reflex 0.868 uIU/mL (0.465-4.68)
[2021-05-29] MEDS: FAMOTIDINE 20 MG/2 ML VIAL IV PUSH (08:25)
--- NOTE | 2021-05-29 11:40 | PM.PNGS ---
Progress Note: A&P Assessment and Plan (1) Bowel obstruction: Code(s): K56.609 - Unspecified intestinal obstruction, unspecified as to partial versus complete obstruction Status: Acute Assessment and Plan: Abdominal films this morning show a normal bowel gas pattern. She reports flatus and seems to be clinically improving. Will get a Gastrografin SBFT today to further evaluate the possible SBO. During the SBFT, this could also look for any possible small bowel diverticulum considering she has such a significant history of diverticulosis and diverticulitis. If the contrast moves through to the colon, then we can remove her NG tube and start clear liquids. Encouraged her to walk the halls. (2) Pancreatic mass: Code(s): K86.89 - Other specified diseases of pancreas Status: Chronic Assessment and Plan: The patient has a pancreatic cystic lesion that was found initially on an outpatient CT scan in April through her PCP. This is currently being worked up and followed. She has seen a Dr. Turner at [facility] earlier this month who performed and endoscopic ultrasound and felt this appeared to be a cystic lesion and performed a fine needle aspiration with fluid sent for testing and cytology. Records have been requested from [facility] and I have reviewed these in her chart. (3) Obesity (BMI 30-39.9): Code(s): E66.9 - Obesity, unspecified Status: Acute Additional Plan I have discussed the plan of care with Dr. Michaels. Subjective Subjective Date/Time Seen: 05/29/21 09:45 Patient reports: no new complaints, feels better, flatus and afebrile Interval history: Patient seen and examined this morning. She reports feeling better today. No specific complaints. Still no abdominal pain overnight. Low NG output recorded overnight. Reports lots of flatus this morning. Review of Systems Review of Systems: All systems reviewed & are unremarkable except as noted in HPI and below Gastrointestinal: Gastrointestinal: Reports as per HPI and Reports no additional gastrointestinal complaints Exam Const: General: comfortable, no acute distress and awake Nutritional Appearance: overweight Resp: Effort & Inspection: no respiratory distress Auscultation: clear to auscultation bilaterally Cardio: Rate: regular rate Rhythm: regular rhythm GI: Inspection: non-distended GI Palp: Yes Soft to palpation, No Tenderness to palpation present (GI), No Guarding due to palpation present (GI) and No Rebound tenderness present Auscultation: normal bowel sounds Skin: General skin exam: normal color Neuro: General: moves all extremities and no focal motor deficits Extrem: General: no clubbing, cyanosis or edema Psych: Mental Status: mental status grossly normal Insight: Good insight present (Psych) Judgement: Good judgement present (Psych) Objective Data Vital Signs Vital Signs: Vital Signs - 24 hr 05/28/21 11:46 05/28/21 12:00 05/28/21 12:01 Temperature Pulse Rate 89 94 91 Respiratory Rate 18 24 H 19 Blood Pressure 166/87 H Pulse Oximetry 99 97 98 05/28/21 12:20 05/28/21 13:24 05/28/21 14:00 Temperature 97.6 F 98.7 F Pulse Rate 91 87 Respiratory Rate 20 19 18 Blood Pressure 172/71 H 175/72 H Pulse Oximetry 99 98 100 05/28/21 19:23 05/28/21 20:14 05/29/21 03:44 Temperature 98 F 99.2 F Pulse Rate 82 82 82 Respiratory Rate 16 18 17 Blood Pressure 186/70 H 172/74 H Pulse Oximetry 97 97 96 Intake/Output Intake/Output: Intake & Output 05/26/21 05/27/21 05/28/21 05/29/21 23:59 23:59 23:59 23:59 Intake Total 3100 1100 Output Total 1150 1250 Balance 1950 -150 Meds/Results Medications: Active Medications Generic Name Dose Route Start Last Admin Trade Name Freq PRN Reason Stop Dose Admin Famotidine 20 mg 05/28/21 21:00 05/29/21 08:25 Famotidine 20 Mg/2 Ml Vial IV PUSH 20 mg Q12HR CLAY Administration Hydralazine HCl 10 mg
[2021-05-29 14:00] VITALS: BP 154/77; PULSE 91; RESP 18; TEMP 36.2; O2SAT 98
--- NOTE | 2021-05-29 15:14 | PM.IMPN ---
Progress Note: A&P Assessment and Plan (1) Bowel obstruction: Code(s): K56.609 - Unspecified intestinal obstruction, unspecified as to partial versus complete obstruction Status: Acute Assessment and Plan: Appears to be resolving as the patient is having bowel movements and no further pain or nausea -plan to remove NG tube and start clear liquids -small-bowel follow-through from today is normal (2) Pancreatic mass: Code(s): K86.89 - Other specified diseases of pancreas Status: Chronic Assessment and Plan: The patient follows up with [facility] for this abnormality. I recommend that she continue to follow with their recommendations. (3) Chronic GERD: Code(s): K21.9 - Gastro-esophageal reflux disease without esophagitis Status: Chronic Assessment and Plan: Continue Pepcid (4) Hyperlipidemia: Code(s): E78.5 - Hyperlipidemia, unspecified Status: Chronic Assessment and Plan: Hold Zetia for now she is NPO (5) Essential (primary) hypertension: Code(s): I10 - Essential (primary) hypertension Status: Chronic Assessment and Plan: Last blood pressure 172/74 at 3:00 a.m. -will repeat blood pressure, I have asked the nurse to call me with any results -will restart her home medications verapamil and telmisartan/hydrochlorothiazide -continue p.r.n. hydralazine Time Spent With Patient Time with patient: 25 - 35 minutes Subjective Date/time seen: 05/29/21 15:14 Interval history: Pt is a 76-year-old female here for bowel obstruction. Patient was seen today after her small-bowel follow-through and her only complaint was her diarrhea. She said she has no further nausea, vomiting, or abdominal pain. She is excited to try clear liquids. She denies chest pain, shortness of breath or fevers. Review of Systems Review of Systems: All systems reviewed & are unremarkable except as noted in HPI and below Exam Narrative: General: Well developed well nourished patient in NAD HEENT: normocephalic, NG tube intact Neck: supple Neuro: Alert and oriented x4 CV:RRR Resp:CTA Abd: Soft, non distended. No pain to palpation. Positive bowel sounds Extremities: No swelling, erythema, or pain to palpation. Objective Data Vital Signs Vital Signs: Vital Signs - 24 hr 05/28/21 19:23 10/12/21 20:14 05/29/21 03:44 Temperature 98 F 99.2 F Pulse Rate 82 82 82 Respiratory Rate 16 18 17 Blood Pressure 186/70 H 172/74 H Pulse Oximetry 97 97 96 Intake/Output Intake/Output: Intake & Output 05/26/21 05/27/21 05/28/21 05/29/21 23:59 23:59 23:59 23:59 Intake Total 3100 1100 Output Total 1150 1250 Balance 1950 -150 Meds/Results Medications: Active Medications Generic Name Dose Route Start Last Admin Trade Name Freq PRN Reason Stop Dose Admin Famotidine 20 mg 05/28/21 21:00 05/29/21 08:25 Famotidine 20 Mg/2 Ml Vial IV PUSH 20 mg Q12HR CLAY Administration Hydralazine HCl 10 mg 05/28/21 13:50 Hydralazine Hcl 20 Mg/Ml Vial IV PUSH Q8H PRN Blood Pressure - High Sodium Chloride 1,000 mls @ 125 mls/hr 05/28/21 11:05 05/29/21 03:56 Normal Saline Iv IV CONT 125 mls/hr .Q8H CLAY Administration Ondansetron HCl 4 mg 05/28/21 13:51 Ondansetron Inj 4 Mg/2 Ml Vial IV PUSH Q4H PRN Nausea And Vomiting Phenol 1 spray 05/28/21 12:10 05/28/21 13:14 Phenol/Sod Pheno Dundee Echols (*[facility]) MUCOUS MEM 1 spray PRN PRN Administration Sore Throat Radiology Results: ITS Impressions Chest X-Ray 05/28/21 08:05 IMPRESSION: No acute cardiopulmonary findings. Chest/Abdomen/Pelvis CTA 05/28/21 08:54 IMPRESSION: 1. No pulmonary embolism. 2. Likely early or partial small bowel obstruction upstream from a short segment of ileum in the right pelvis which demonstrates wall thickening with mild surrounding inflammatory stranding consisten
[2021-05-29 15:15] VITALS: BP 122/62
[2021-05-29] MEDS: SODIUM CHLORIDE 0.9% IV 1,000 ML 75 ML IV CONT (20:24)
[2021-05-29] MEDS: PANTOPRAZOLE SODIUM IV 40 MG VIAL IV PUSH (20:25)
[2021-05-29 21:14] VITALS: BP 159/91; PULSE 89; RESP 16; TEMP 36.8; O2SAT 100
[2021-05-30] MEDS: ACETAMINOPHEN 500 MG TABLET 1000 MG PO (02:30)
[2021-05-30 05:09] VITALS: BP 177/81; PULSE 82; RESP 16; TEMP 36.5; O2SAT 98
[2021-05-30 05:55] LABS: Hematocrit 34.1 % (37.0-47.0); Mean Corpuscular HGB Conc 32.3 g/dl (32-36); Mean Corpuscular Hemoglobin 27.2 pg (26-34); Mean Corpuscular Volume 84.2 fl (80-100); Platelet Count Result 155 k/mm3 (150-375); Red Blood Count 4.05 M/mm3 (4.2-5.4); Red Cell Distribution Width 14.4 % (11.5-14.5); White Blood Count 4.8 K/mm3 (4.5-10.0)
[2021-05-30 06:09] LABS: Alanine Aminotransferase 16 U/L (4-35); Albumin Level 3.5 g/dL (3.5-5.1); Alkaline Phosphatase 40 U/L (38-126); Anion Gap 6 mmol/L (8-16); Aspartate Amino Transferase 43 U/L (14-36); Bilirubin,Total 0.4 mg/dL (0.2-1.3); Blood Urea Nitrogen 20 mg/dL (7-17); Calcium 8.6 mg/dL (8.4-10.2); Carbon Dioxide 23 mmol/L (22-30); Chloride 111 mmol/L (98-107); Estimated CRCL calculation 41 ml/min; Estimated Glomerular Filt Rate 49; Glucose 109 mg/dL (65-110); Potassium 3.2 mmol/L (3.4-5.0); Sodium 140 mmol/L (137-145)
[2021-05-30] MEDS: hydroCHLOROthiazide 12.5 MG CAPSULE PO (08:37)
[2021-05-30] MEDS: TELMISARTAN 40 MG TABLET 80 MG PO (08:37)
[2021-05-30] MEDS: VERAPAMIL HCL ER 240 MG TABLET.ER 480 MG PO (08:37)
[2021-05-30] MEDS: PANTOPRAZOLE SODIUM IV 40 MG VIAL IV PUSH (08:38)
[2021-05-30] MEDS: SODIUM CHLORIDE 0.9% IV 1,000 ML 75 ML IV CONT (08:39)
--- NOTE | 2021-05-30 09:13 | PM.PNGS ---
Progress Note: A&P Assessment and Plan (1) Bowel obstruction: Code(s): K56.609 - Unspecified intestinal obstruction, unspecified as to partial versus complete obstruction Status: Acute Assessment and Plan: SBFT was unremarkable with contrast reaching the colon in 45 minutes. Will advance her diet as tolerated today to low fiber. Would recommend a low fiber diet for 1-2 weeks while this is resolving. I added education to her discharge. Okay from our standpoint to discharge the patent later today if she is tolerating her diet. No follow-up needed unless having future issues. (2) Pancreatic mass: Code(s): K86.89 - Other specified diseases of pancreas Status: Chronic Assessment and Plan: The patient has a pancreatic cystic lesion that was found initially on an outpatient CT scan in April through her PCP. This is currently being worked up and followed. She has seen a Dr. Turner at [facility] earlier this month who performed and endoscopic ultrasound and felt this appeared to be a cystic lesion and performed a fine needle aspiration with fluid sent for testing and cytology. Records have been requested from [facility] and I have reviewed these in her chart. F/u as recommended. (3) Obesity (BMI 30-39.9): Code(s): E66.9 - Obesity, unspecified Status: Acute Additional Plan I have discussed the plan of care with Dr. Michaels. I added Claritin this morning, avoided Claritin-D due to her high blood pressures. Subjective Subjective Date/Time Seen: 05/30/21 09:13 Patient reports: no new complaints, feels better, flatus, bowel movement, diarrhea and afebrile Interval history: Patient seen and examined this morning. She reports feeling well today. Has had multiple liquid stools following the contrast study yesterday. They are becoming more formed this morning. No nausea, bloating, or abdominal pain. She does report some nasal congestion and a headache that she feels is typical with her allergy symptoms. She typically takes Claritin-D daily and is requesting this. Review of Systems Review of Systems: All systems reviewed & are unremarkable except as noted in HPI and below Exam Const: General: no acute distress, alert and awake Nutritional Appearance: overweight Orientation/consciousness: patient oriented x3 GI: Inspection: non-distended and obesity GI Palp: Yes Soft to palpation, No Tenderness to palpation present (GI), No Guarding due to palpation present (GI) and No Rebound tenderness present Auscultation: normal bowel sounds Skin: General skin exam: normal color Neuro: General: moves all extremities and no focal motor deficits Extrem: General: no clubbing, cyanosis or edema Psych: Mental Status: mental status grossly normal Insight: Good insight present (Psych) Judgement: Good judgement present (Psych) Objective Data Vital Signs Vital Signs: Vital Signs - 24 hr 05/29/21 14:00 05/29/21 15:15 05/29/21 21:14 Temperature 97.2 F L 98.2 F Pulse Rate 91 89 Respiratory Rate 18 16 Blood Pressure 154/77 H 122/62 159/91 H Pulse Oximetry 98 100 05/30/21 05:09 Temperature 97.7 F Pulse Rate 82 Respiratory Rate 16 Blood Pressure 177/81 H Pulse Oximetry 98 Intake/Output Intake/Output: Intake & Output 05/27/21 05/28/21 05/29/21 05/30/21 23:59 23:59 23:59 23:59 Intake Total 3100 2460 1200 Output Total 1150 2050 Balance 3773 607 8142 Meds/Results Medications: Active Medications Generic Name Dose Route Start Last Admin Trade Name Freq PRN Reason Stop Dose Admin Hydralazine HCl 10 mg 05/28/21 13:50 Hydralazine Hcl 20 Mg/Ml Vial IV PUSH Q8H PRN Blood Pressure - High Hydrochlorothiazide 12.5 mg 05/30/21 09:00 05/30/21 08:37 Hydrochlorothiazide 12.5 Mg Capsule [facility] Administration Loratadine 10 mg 05/30/21 09:03 Loratadine 10 Mg Tablet [facility] Ondansetron HCl 4 mg 05/28/21 13:51 Onda
[2021-05-30] MEDS: LORATADINE 10 MG TABLET PO (09:56)
[2021-05-30] MEDS: POTASSIUM CHLORIDE 20 MEQ TABLET 40 MEQ PO (12:21)
[2021-05-30] MEDS: hydrALAZINE HCL 20 MG/ML VIAL 10 MG IV PUSH (13:18)
[2021-05-30 14:08] VITALS: BP 148/74; PULSE 76; RESP 16; TEMP 36.9; O2SAT 100
--- NOTE | 2021-05-30 14:54 | PM.DS ---
DS: Admitting Diagnosis Discharge Date 05/31/21 Admitting Diagnosis SBO DS: Discharge Diagnosis Discharge Diagnosis (1) Bowel obstruction: Code(s): K56.609 - Unspecified intestinal obstruction, unspecified as to partial versus complete obstruction Status: Acute Assessment and Plan: Resolved. Pt tolerating a regular diet at d/c (2) Pancreatic mass: Code(s): K86.89 - Other specified diseases of pancreas Status: Chronic Assessment and Plan: The patient follows up with [facility] for this abnormality. I recommend that she continue to follow with their recommendations. (3) Chronic GERD: Code(s): K21.9 - Gastro-esophageal reflux disease without esophagitis Status: Chronic Assessment and Plan: Continue omeprazole (4) Hyperlipidemia: Code(s): E78.5 - Hyperlipidemia, unspecified Status: Chronic Assessment and Plan: continue home ezetimibe (5) Essential (primary) hypertension: Code(s): I10 - Essential (primary) hypertension Status: Chronic Assessment and Plan: Last blood pressure 148/74 -continue home medications, follow up with pcp for further monitoring DS: Summary Hospital Course Hospital Course: Patient is a 76-year-old female with a past medical history of hypertension who presented emergency room for nausea and vomiting and was found to have a small-bowel obstruction. patient was admitted to the hospitalist service and NG tube was placed. She improved conservative measures and no surgical intervention was needed. She went through a small-bowel follow-through which showed a normal transit time and her abdominal pain and nausea had resolved. The day of discharge she was eating and drinking well with no complaints. Of note, she does have a retroperitoneal mass between the head of the pancreas, duodenum and inferior vena cava which has been thoroughly worked up at [facility] and was reportedly benign per pathology. She is to follow up with [facility] as routinely scheduled. The day of discharge patient was feeling well and had no complaints. She was educated about the worrisome signs and symptoms come back to emergency room for and was discharged in stable condition. DOS 05/31/21 Status at Discharge Functional status at discharge: independent ambulation Overall status at discharge: patient is back to baseline Time Spent with Patient Time attestation: Total time spent providing and/or coordinating discharge services:34 min Time spent: Greater than 30 minutes Exam Narrative: General: Well developed well nourished patient in NAD HEENT: normocephalic Neck: supple Neuro: Alert and oriented x4 CV:RRR Resp:CTA Abd: Soft, non distended. No pain to palpation. Positive bowel sounds Extremities: No swelling, erythema, or pain to palpation. DS: Data Data Completed and Pending Labs on day of discharge: Labs from last 24 hours 05/30/21 05/30/21 05:30 05:30 WBC 4.8 RBC 4.05 L Hgb 11.0 L Hct 34.1 L MCV 84.2 MCH 27.2 MCHC 32.3 RDW 14.4 Plt Count 155 MPV 11.0 H Sodium 140 Potassium 3.2 L Chloride 111 H Carbon Dioxide 23 Anion Gap 6 L BUN 20 H Creatinine 1.10 H Estim Creat Clear Calc 41 Estimated GFR 49 L Glucose 109 Calcium 8.6 Total Bilirubin 0.4 Direct Bilirubin 0.0 AST 43 H ALT 16 Alkaline Phosphatase 40 Total Protein 6.0 L Albumin 3.5 Discharge Plan Discharge Attending physician on discharge: James Coelho Consulting providers: Guillermo Michaels Discharging Clinician: Temitope Klein Patient Disposition: Home, Self-Care Activity: as tolerated Diet: regular Discharge Instructions: - As discussed, continue your blood pressure medications and follow up with your primary physician in one week about this stay. -Follow up with your specialist at [facility] as scheduled
== END 2021-05-30 17:29 | disposition home or self-care (01) | DRG 390 ==
LOC: ANHED 09:46 → ANH2MED 11:33
PROVIDERS: Nurse Practitioner; Admitting Provider Internal Medicine; Emergency Provider General Practice; PCP Internal Medicine; Visit Provider Physician Assistant
DX: K56.600 Partial intestinal obstruction, unspecified as to cause (principal); R19.09 Other intra-abdominal and pelvic swelling, mass and lump; K57.90 Diverticulosis of intestine, part unspecified, without perforation or abscess without bleeding; K21.9 Gastro-esophageal reflux disease without esophagitis; E78.5 Hyperlipidemia, unspecified; I10 Essential (primary) hypertension; J43.9 Emphysema, unspecified; E66.9 Obesity, unspecified; Z68.35 Body mass index [BMI] 35.0-35.9, adult; Z90.49 Acquired absence of other specified parts of digestive tract; Z90.710 Acquired absence of both cervix and uterus; Z90.722 Acquired absence of ovaries, bilateral; Z98.42 Cataract extraction status, left eye; Z98.41 Cataract extraction status, right eye
CPT/HCPCS: 36415; 71046; 71275; 74019; 74177; 74250; 80048; 80053; 80076; 81003; 83605; 83690; 83735; 83880; 84443; 84484; 85025; 85027; 85380; 93005; 93970; 96361; 96365; 96375; 99285; A9270; C9113; G0378; J0131; J0360; J2405; J7030; Q9967

== ENCOUNTER 2021-06-29 09:20 | Outpatient (CLI) | payer MEDICARE, SELFPAY ==
[2021-06-29 09:49] LABS: Hemoglobin A1C 5.8 % (<5.7)
[2021-06-29 09:54] LABS: Alanine Aminotransferase 26 U/L (4-35); Albumin Level 4.4 g/dL (3.5-5.1); Alkaline Phosphatase 51 U/L (38-126); Anion Gap 14 mmol/L (8-16); Aspartate Amino Transferase 44 U/L (14-36); Bilirubin,Total 0.5 mg/dL (0.2-1.3); Blood Urea Nitrogen 25 mg/dL (7-17); Calcium 9.7 mg/dL (8.4-10.2); Carbon Dioxide 24 mmol/L (22-30); Chloride 105 mmol/L (98-107); Cholesterol 170 mg/dL (0-200); Estimated Glomerular Filt Rate 37; Glucose 128 mg/dL (65-110); HDL Direct 39 mg/dL; Sodium 143 mmol/L (137-145); Triglycerides 174 mg/dL (<150)
[2021-06-29 10:05] LABS: LDL Cholesterol Direct 102 mg/dL
== END 2021-06-29 09:21 | disposition home or self-care (01) ==
PROVIDERS: PCP Internal Medicine; Visit Provider Internal Medicine
DX: R73.03 Prediabetes (principal); I10 Essential (primary) hypertension; E78.5 Hyperlipidemia, unspecified
CPT/HCPCS: 36415; 80053; 80061; 83036

== ENCOUNTER 2022-01-10 09:35 | Outpatient (CLI) | payer MEDICARE, SELFPAY ==
[2022-01-10 10:40] LABS: Alanine Aminotransferase 21 U/L (6-35); Albumin Level 4.4 g/dL (3.5-5.1); Alkaline Phosphatase 55 U/L (38-126); Anion Gap 8 mmol/L (8-16); Aspartate Amino Transferase 48 U/L (14-36); Bilirubin,Total 0.6 mg/dL (0.2-1.3); Blood Urea Nitrogen 25 mg/dL (7-17); Calcium 8.9 mg/dL (8.4-10.2); Carbon Dioxide 26 mmol/L (22-30); Chloride 103 mmol/L (98-107); Cholesterol 166 mg/dL (0-200); Estimated Glomerular Filt Rate 40; Glucose 104 mg/dL (65-110); HDL Direct 43 mg/dL; Potassium 4.3 mmol/L (3.4-5.0); Sodium 137 mmol/L (137-145); Triglycerides 132 mg/dL (<150)
[2022-01-10 10:51] LABS: Hemoglobin A1C 5.9 % (<5.7); LDL Cholesterol Direct 91 mg/dL
== END 2022-01-10 09:36 | disposition home or self-care (01) ==
LOC: ANHLAB 09:39
PROVIDERS: PCP Internal Medicine; Visit Provider Nurse Practitioner
DX: R73.03 Prediabetes (principal); E78.5 Hyperlipidemia, unspecified
CPT/HCPCS: 36415; 80053; 80061; 83036

== ENCOUNTER 2022-01-17 08:14 | Outpatient (CLI) | payer MEDICARE, SELFPAY ==
--- NOTE | ~2022-01-17 | MM_ITS ---
EXAMINATION: MM screening karen BI w saul HISTORY: Screening mammogram TECHNIQUE: Craniocaudal and mediolateral oblique 3-D tomosynthesis images were obtained and synthetic 2-D images were generated. CAD analysis was submitted and interpreted. COMPARISON: 12/29/2020, 12/27/2019, 12/17/2018 bilateral screening mammogram examinations Additional serial mammograms and breast ultrasound examinations dating back to 06/23/2007 were reviewe d. BREAST PARENCHYMAL COMPOSITION: The breasts are almost entirely fatty. FINDINGS: There is a stable small area of asymmetry and architectural distortion/spiculation in the u pper outer left breast at the junction of the middle and posterior thirds, which has diminished in si ze since 2006 and remained stable since 07/31/2015. This was previously attributed to likely prior be nign breast biopsy site. There is no evidence of suspicious mass, calcification, or architectural distortion to suggest malig carmen in either breast. There has been no suspicious interval change. IMPRESSION: 1. No mammographic evidence of malignancy. 2. Recommend routine screening mammography in one year. BI-RADS Category 2: Benign finding(s). Reviewed, dictated and finalized at location A.
== END 2022-01-17 08:15 | disposition home or self-care (01) ==
PROVIDERS: PCP Internal Medicine; Visit Provider Internal Medicine
DX: Z12.31 Encounter for screening mammogram for malignant neoplasm of breast (principal)
CPT/HCPCS: 77063; 77067

== ENCOUNTER 2022-01-24 14:02 | Outpatient (CLI) | payer MEDICARE, SELFPAY ==
--- NOTE | ~2022-01-24 | XR_ITS ---
XR thoracic spine 3V DATE: 01/24/2022 14:25 INDICATION: Right back pain. No injury. TECHNIQUE: AP, lateral and swimmer views COMPARISON: None FINDINGS: There is approximately 2.8 mm anterolisthesis at C4-5. There is severe degenerative disc disease at C5-6 and moderately severe degenerative disc disease at C6-7. Osteopenia. There is minimal levoscoliosis and degenerative spurring of the thoracic spine. No thoracic spine fra cture or bone destruction is detected. The thoracic pedicles are intact. No paraspinal soft tissue th ickening. IMPRESSION: Minimal levoscoliosis and degenerative spurring of the thoracic spine Osteopenia 2.8 mm anterolisthesis at C4-5 Prominent degenerative disc disease C5-6 and C6-7 Reviewed, dictated and finalized at location A. IMPRESSION: Minimal levoscoliosis and degenerative spurring of the thoracic spi ne Osteopenia 2.8 mm anterolisthesis at C4-5 Prominent degenerative disc disease C5-6 and C6-7
== END 2022-01-24 14:03 | disposition home or self-care (01) ==
LOC: ANHIMG 14:07
PROVIDERS: PCP Internal Medicine; Visit Provider Internal Medicine
DX: M54.9 Dorsalgia, unspecified (principal); M85.88 Other specified disorders of bone density and structure, other site; M50.323 Other cervical disc degeneration at C6-C7 level
CPT/HCPCS: 72072

== ENCOUNTER 2022-06-01 05:54 | Emergency (ER) | payer MEDICARE, SELFPAY ==
--- NOTE | ~2022-06-01 | CT_ITS ---
EXAMINATION: CT abdomen pelvis w con DATE: 06/01/2022 07:05 INDICATION: Lower abdominal pain. Nausea and vomiting. TECHNIQUE: Computed tomography (CT) of the abdomen and pelvis was performed with 100 mL Omnipaque-350 intravenous contrast. Automated exposure control and iterative reconstruction technique were employe d. The dose-length product was 919.36 mGy-cm. COMPARISON: 05/28/2021 and 05/16/2021 FINDINGS: Mild bibasilar atelectasis. Mild cardiomegaly. Aortic valve calcification. No pericardial or pleural effusion. Small sliding-type hiatal hernia. Unchanged dilation of the common hepatic duct which measu res up to 2.0 cm progressively tapering throughout the common bile duct likely related to prior venkat cystectomy with surgical clips the gallbladder fossa. No intrahepatic biliary ductal dilation. Spleen , pancreas, bilateral adrenal glands are normal. Bilateral renal cysts, the larger on the right measu ring 3.7 cm. There are also 3 unchanged subcentimeter fat attenuation lesions in the right kidney con sistent with angiomyolipomas. Interval decrease in size of a previously 3.8 x 3.1, now 3.2 x 2.1 cm h eterogeneous retroperitoneal mass located between the head of the pancreas, the duodenum and inferior vena cava, reportedly previously biopsied at surgery [facility] with benign pathology. There are gas and fluid-filled loops of small bowel which are not frankly dilated measuring up to 2.8 cm maximal diameter in the central pelvis where there is a length of fluid-filled pseudofeces prior to a single transition point decompression of the more distal small bowel and wall thickening along t he 20 cm more distal small bowel. Ileocolic anastomosis in the right lower quadrant. There is moderat e colonic diverticulosis with a sigmoid and descending colon predominance. There is no adjacent infl ammatory change to suggest diverticulitis. There is however chronic wall thickening along the distal descending and proximal sigmoid colon which appears unchanged and suggests scarring or sequela of chr onic diverticulitis. Bladder is normal. The uterus is not identified and has likely been surgically resected. No abscess o r free intraperitoneal gas or fluid. No pathologically enlarged abdominal or pelvic lymphadenopathy. Severe lumbar spondylosis. IMPRESSION: 1. Pseudo-feces sign within a loop of small bowel with relative could not absolutely dilation and tra nsition point to a segment of relatively decompressed small bowel with wall thickening in the identic al location as on the prior study consistent with ileus or early/partial small bowel obstruction pote ntially related to a localized enteritis which could be either inflammatory, infectious or less likel y ischemic in etiology. 2. Interval decrease in size of a now 3.1 x 2.1 cm retroperitoneal mass reportedly previously biopsie d with benign pathology. Correlate with clinical history. 3. Diverticulosis. Reviewed, dictated and finalized at location A. IMPRESSION: 1. Pseudo-feces sign within a loop of small bowel with relative could not absol utely dilation and transition point to a segment of relatively decompressed sma ll bowel with wall thickening in the identical location as on the prior study c onsistent with ileus or early/partial small bowel obstruction potentially relat ed to a localized enteritis which could be either inflammatory, infectious or l ess likely ischemic in etiology. 2. Interval decrease in size of a now 3.1 x 2.1 cm retroperitoneal mass reporte dly previously biopsied with benign pathology. Correlate with clinical history. 3. Diverticulosis.
--- NOTE | 2022-06-01 05:55 | ED.ABDPAIN ---
HPI - Abdominal Pain General Chief Complaint: Abdominal Pain <Tyra Bonilla MD - Last Filed: 06/06/22 13:43> Stated Complaint: Abdominal pain, vomiting, Hx SBO <Tyra Bonilla MD - Last Filed: 06/06/22 13:43> Time Seen by Provider: 06/01/22 05:55 <Tyra Bonilla MD - Last Filed: 06/06/22 13:43> History of Present Illness HPI narrative: Patient is a 77-year-old female presenting with abdominal pain and vomiting. Patient states that starting 2 days ago she developed left-sided abdominal pain that has progressed. States that starting yesterday she started vomiting and has been vomiting all night long. States this feels similarly to a prior episode of bowel obstruction. States that she has had multiple abdominal surgeries. She denies fevers, headache, chest pain, shortness of breath, cough, diarrhea, dysuria, leg swelling. Patient states that she last had a bowel movement 2 days ago. <Tyra Bonilla MD - Last Filed: 06/06/22 13:43> Related Data Allergies/Adverse Reactions: Allergies Allergy/AdvReac Type Severity Reaction Status Date / Time lisinopril Allergy Unknown swollen Verified 06/01/22 06:01 tongue naproxen Allergy Unknown Nose bleeds Verified 06/01/22 06:01 Vttstzf-RCI-KlA Reductase Allergy Unknown Stomach Verified 06/01/22 06:01 Inhibitor pain [Cdkpaec-Ple-Vqq Reductase Inhibitor] Sulfa (Sulfonamide Allergy Unknown Rash Verified 06/01/22 06:01 Antibiotics) <Tyra Bonilla MD - Last Filed: 06/06/22 13:43> Review of Systems Review of Systems: All systems reviewed & are unremarkable except as noted in HPI and below <Tyra Bonilla MD - Last Filed: 06/06/22 13:43> [facility] Past Medical History Medical History: Medical History Bilateral hip pain Chronic GERD COVID-19 Essential (primary) hypertension Exposure to COVID-19 virus Exposure to COVID-19 virus 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 with cytology appearing benign Postmenopausal Prediabetes Screening for breast cancer Screening for colon cancer <Tyra Bonilla MD - Last Filed: 06/06/22 13:43> Surgical History Surgical History: Surgical History H/O tubal ligation in her 30's History of appendectomy During her hysterectomy. History of bowel resection 2018 - Right hemicolectomy with ileum to transverse colon anastomosis following cecal diverticulitis with perforation and abscess History of cholecystectomy Laparoscopic cholecystectomy History of total hysterectomy with bilateral salpingo-oophorectomy (BSO) At age 35-40, she had an abdominal hysterectomy with left salpingo-oophorectomy. 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 Hx of tonsillectomy Status post cataract extraction <Tyra Bonilla MD - Last Filed: 06/06/22 13:43> Family History Family History: Family History Father Hypertension Family history of arthritis Family history of lung cancer Family history of colonic diverticulitis Family history of malignant neoplasm Mother Hypertension Family history of arthritis Family history of malignant neoplasm of breast in first degree relative Family history of colonic diverticulitis Sibling Patient's sister is in good health Family history of chronic obstructive pulmonary disease <Tyra Bonilla MD - Last Filed: 06/06/22 13:43> Social History Social History: Social History Social History: the patient is and has 2 sons. Both of her sons of the durable power criminal attorney for healthcare. The twin
[2022-06-01 05:58] VITALS: BP 132/70; PULSE 114; RESP 18; TEMP 36.4; O2SAT 98
[2022-06-01 06:29] LABS: Basophils Absolute Auto 0.1 K/mm3 (0.0-0.1); Eosinophils Percent Auto 0.3 % (0-4.4); Hematocrit 44.3 % (37.0-47.0); Hemoglobin 14.1 g/dL (12.0-15.0); Immature Granulocyte Absolute 0.02 K/mm3 (0.00-0.031); Immature Granulocyte Percent A 0.3 % (0-0.5); Lymphocytes Absolute Auto 0.86 K/mm3 (0.9-3.2); Lymphocytes Percent Auto 11.1 % (18.3-44.2); Mean Corpuscular HGB Conc 31.8 g/dl (32-36); Mean Corpuscular Hemoglobin 26.6 pg (26-34); Mean Corpuscular Volume 83.6 fl (80-100); Mean Platelet Volume 10.8 fl (7.4-10.4); Monocytes Absolute Auto 0.3 K/mm3 (0.1-0.6); Monocytes Percent Auto 3.8 % (2.6-8.5); Neutrophils Absolute Auto 6.5 K/mm3 (1.3-6.7); Neutrophils Percent Auto 83.5 % (45.5-73.1); Platelet Count Result 247 k/mm3 (150-375); Red Cell Distribution Width 14.7 % (11.5-14.5); White Blood Count 7.7 K/mm3 (4.5-10.0)
[2022-06-01] MEDS: ONDANSETRON INJ 4 MG/2 ML VIAL IV PUSH (06:41)
[2022-06-01] MEDS: MORPHINE SULFATE (*CRX) 4 MG/ML INJ IV PUSH (06:41)
[2022-06-01] MEDS: SODIUM CHLORIDE 0.9% IV 1,000 ML 999 ML IV CONT (06:41)
[2022-06-01 06:43] LABS: Alanine Aminotransferase 28 U/L (6-35); Albumin Level 4.7 g/dL (3.5-5.1); Alkaline Phosphatase 74 U/L (38-126); Anion Gap 15 mmol/L (8-16); Aspartate Amino Transferase 44 U/L (14-36); Bilirubin,Total 0.7 mg/dL (0.2-1.3); Blood Urea Nitrogen 26 mg/dL (7-17); Calcium 9.7 mg/dL (8.4-10.2); Carbon Dioxide 21 mmol/L (22-30); Chloride 104 mmol/L (98-107); Estimated Glomerular Filt Rate 37; Glucose 171 mg/dL (65-110); Lipase 89 U/L (23-300); Potassium 3.7 mmol/L (3.4-5.0); Sodium 140 mmol/L (137-145)
--- NOTE | 2022-06-01 07:06 | PC.NURSE ---
Report given to Gloria MISHRA
[2022-06-01 07:15] VITALS: BP 162/85; PULSE 94; RESP 16; O2SAT 97
[2022-06-01 07:31] VITALS: BP 167/81; PULSE 91; RESP 17; O2SAT 98
[2022-06-01 08:39] LABS: Add Urine Microscopic? NO; Appearance Urine Clear (Clear); Bilirubin Urine Negative (Negative); Blood Urine Negative (Negative); Color Urine Yellow (Yellow); Glucose Urine UA Negative (Negative); Ketones Urine Negative (Negative); Leukocyte Esterase Ur Negative LEU/UL (Negative); Nitrate Urine Negative (Negative); Protein Urine Negative (Negative); Urobilinogen Urine Negative mg/dL (<2.0)
[2022-06-01 08:41] VITALS: BP 138/80; PULSE 98; RESP 18; O2SAT 97
[2022-06-01 08:41] LABS: Specific Grav Ur 1.049 (1.001-1.035)
[2022-06-01 09:01] VITALS: BP 148/75; PULSE 97; RESP 18; O2SAT 96
[2022-06-01 10:00] VITALS: BP 140/87; PULSE 94; RESP 16; O2SAT 100
== END 2022-06-01 10:00 | disposition home or self-care (01) ==
PROVIDERS: Emergency Provider Emergency Medicine; PCP Internal Medicine
DX: R11.2 Nausea with vomiting, unspecified (principal); I10 Essential (primary) hypertension; E78.5 Hyperlipidemia, unspecified; R73.03 Prediabetes; K21.9 Gastro-esophageal reflux disease without esophagitis
CPT/HCPCS: 36415; 74177; 80053; 81003; 83690; 85025; 96361; 96374; 96375; 99284; J2270; J2405; J7030; Q9967

== ENCOUNTER 2022-07-25 09:17 | Outpatient (CLI) | payer MEDICARE, SELFPAY ==
[2022-07-25 09:51] LABS: Hemoglobin A1C 6.2 % (<5.7)
[2022-07-25 09:55] LABS: Alanine Aminotransferase 25 U/L (6-35); Albumin Level 4.4 g/dL (3.5-5.1); Alkaline Phosphatase 47 U/L (38-126); Anion Gap 9 mmol/L (8-16); Aspartate Amino Transferase 47 U/L (14-36); Bilirubin,Total 0.7 mg/dL (0.2-1.3); Blood Urea Nitrogen 28 mg/dL (7-17); Calcium 8.7 mg/dL (8.4-10.2); Carbon Dioxide 27 mmol/L (22-30); Chloride 103 mmol/L (98-107); Cholesterol 144 mg/dL (0-200); Estimated Glomerular Filt Rate 44; Glucose 121 mg/dL (65-110); HDL Direct 37 mg/dL; Potassium 3.8 mmol/L (3.4-5.0); Sodium 139 mmol/L (137-145); Triglycerides 155 mg/dL (<150)
[2022-07-25 10:03] LABS: LDL Cholesterol Direct 83 mg/dL
== END 2022-07-25 09:18 | disposition home or self-care (01) ==
PROVIDERS: PCP Internal Medicine; Visit Provider Internal Medicine
DX: R73.03 Prediabetes (principal); I10 Essential (primary) hypertension; E78.5 Hyperlipidemia, unspecified
CPT/HCPCS: 36415; 80053; 80061; 83036

== ENCOUNTER 2022-08-20 08:00 | Outpatient (RCR) | payer MEDICARE, SELFPAY ==
--- NOTE | 2022-06-24 10:32 | PTOPEVAL1 ---
Assessment and note entered by Gurwinder Wiley, PT Evaluation Information Assessment Status Evaluation Diagnosis mid back pain with R arm weakness Onset gradual Subjective Information Patient reports she has been have pain to the R of her spine in her midback resulting in general pain in that area along with noticeable weakness in the R arm which has made ADL's more difficult. Trouble with sleeping. Patient is R handed. Has been having family members use different massagers to help alleviate pain. Less pain first thing in the morning. Reported Pain Level Pain Score 2: Self Report Assessment PT Clinical Summary Bethanie, is a 77 year old female coming into the clinic per her report for R mid back pain with R side arm weakness also. The patient has decreased strength on the rise especially in the scapula which is winging. She also has rounded shoulders, and a forward head. Patient should benefit from skilled physical therapy to work on her posture, scapular and shoulder strength and positioning along with modalities and manual therapy to help with pain and tight muscles. Plan of Care Interventions Electrical Stimulation,Hot Pack/Cold Pack,Manual Therapy,Neuro Re-education,Patient/Caregiver Education,Therapeutic Activities,Therapeutic Exercise,Ultrasound PT Services Indicated Yes Treatment Frequency and 1-2x/wk for 4 weeks Duration These treatments will address the objective and functional deficits as defined above. The patient will be advanced safely and appropriately in order for the patient to progress towards his/her prior level of function. Additional exercises will be introduced and as well as a comprehensive home exercise program upon discharge, if needed, ?to ensure carryover of functional gains achieved in the clinic. This treatment plan has been reviewed and agreement upon by the patient.
--- NOTE | 2022-06-26 08:36 | PCPTNOTE ---
Patient did not show up for scheduled appointment this date. Therapist called patient and patient apologized and thought her appointment was tomorrow. Therapist confirmed patient's next appointment on 07/07/22 at 10:15.
--- NOTE | 2022-07-21 14:07 | PTOPREEVAL ---
Assessment and note entered by Gurwinder Wiley, PT Evaluation Information Assessment Status Re-evaluation Diagnosis mid back pain with R arm weakness Onset gradual Subjective Information Patient reports she still has pain, but not the same frequency, or intensity. Biggest issues are still sleeping and any activity that involves any sort of forward bending like wrapping [place] gifts. Still has family members help with massages on her back, when they are able to help. Reported Pain Level Pain Score 1: Self Report Additional Pain Score Comments worse with any leaning forward activities Assessment PT Clinical Summary Bethanie is a 77 year old female coming into the clinic with mid back pain along with R arm radiating pain. She reports an improvement in ability and decrease in pain, but still not where she wants to be. The patient has met goals for strength of her R shoulder flexors, and scapular protractors along with improved R shoulder flexion, but has not met her pain goal along with improved range of motion of the L shoulder flexion and R external rotators. I believe the patient can still make improvements which should reduce her pain and improve her ability to do ADL's. Plan of Care Interventions Electrical Stimulation,Gait Training,Hot Pack/Cold Pack,Manual Therapy,Neuro Re-education,Patient/ Caregiver Education,Therapeutic Activities, Therapeutic Exercise,Ultrasound Other Interventions taping PT Services Indicated Yes Treatment Frequency and 1-2x/wk for 4 weeks Duration These treatments will address the objective and functional deficits as defined above. The patient will be advanced safely and appropriately in order for the patient to progress towards his/her prior level of function. Additional exercises will be introduced and as well as a comprehensive home exercise program upon discharge, if needed, ?to ensure carryover of functional gains achieved in the clinic. This treatment plan has been reviewed and agreement upon by the patient.
--- NOTE | 2022-08-20 11:44 | PTOPDC ---
Assessment and note entered by Gurwinder Wiley, PT Evaluation Information Assessment Status Discharge Diagnosis mid back pain with R arm weakness Onset gradual Subjective Information Patient reports her arthritis is acting up with the weather changes, but she reports be much more aware and alert of her posture which is helping with her back and R arm. Reported Pain Level Pain Score 0: Self Report Additional Pain Score Comments no pain sitting here, but at worst her pain is a 7 /10 better than a 9/10 at first re-evaluation and she reports using less pain medications and muscle relaxers than prior to starting surgery. Assessment PT Clinical Summary Bethanie is a 77 year old coming into the clinic since Jun.24 to work on her mid back pain and R shoulder weakness. She has improved her strength meeting all of her goals to being grossly 4+/5 and reports less use of pain medications. At this time Patient and therapist agree it would be a good time to let her go on with her home exercise program and discharge from skilled physical therapy. Plan of Care PT Services Indicated No Treatment Frequency and discharge skilled physical therapy. Duration
== END 2022-08-20 13:20 | disposition home or self-care (01) ==
LOC: ANHPT 08:00
PROVIDERS: PCP Internal Medicine; Visit Provider Internal Medicine
DX: M54.16 Radiculopathy, lumbar region (principal)
CPT/HCPCS: 97014; 97110; 97112; 97140; 97161; 97530; 99199; G0283

== ENCOUNTER 2022-09-30 10:45 | Outpatient (CLI) | payer MEDICARE, SELFPAY ==
--- NOTE | ~2022-09-30 | XR_ITS ---
EXAMINATION: XR abdomen obstructive series DATE: 09/30/2022 11:12 INDICATION: Unspecified abdominal pain. Abdominal distention. TECHNIQUE: Upright and supine views of the abdomen on 3 radiographs were obtained. COMPARISON: Small bowel series 05/29/2021, CT abdomen and pelvis 06/01/2022 FINDINGS: There are no dilated loops of bowel. There is a small volume of stool in the colon. No free intraperitoneal gas. There are surgical clips in the abdomen. IMPRESSION: 1. Normal bowel gas pattern. Reviewed, dictated and finalized at location A. VAULT ATTENDANT
== END 2022-09-30 10:46 | disposition home or self-care (01) ==
PROVIDERS: PCP Internal Medicine; Visit Provider Nurse Practitioner
DX: R10.9 Unspecified abdominal pain (principal); Z87.19 Personal history of other diseases of the digestive system
CPT/HCPCS: 74019

== ENCOUNTER 2022-10-08 11:28 | Outpatient (RCR) | payer MEDICARE, SELFPAY | END 2022-10-08 11:32 | disposition home or self-care (01) | LOC: ANHPT 11:28 | PROVIDERS: PCP Internal Medicine; Visit Provider Internal Medicine | DX: M54.16 Radiculopathy, lumbar region (principal) | CPT/HCPCS: 99199 ==

== ENCOUNTER 2023-01-30 07:24 | Outpatient (CLI) | payer MEDICARE, SELFPAY ==
[2023-01-30 08:04] LABS: Alanine Aminotransferase 23 U/L (6-35); Albumin Level 4.2 g/dL (3.5-5.1); Alkaline Phosphatase 54 U/L (38-126); Anion Gap 8 mmol/L (8-16); Aspartate Amino Transferase 44 U/L (14-36); Bilirubin,Total 0.5 mg/dL (0.2-1.3); Blood Urea Nitrogen 31 mg/dL (7-17); Calcium 8.9 mg/dL (8.4-10.2); Carbon Dioxide 29 mmol/L (22-30); Chloride 104 mmol/L (98-107); Cholesterol 143 mg/dL (0-200); Estimated Glomerular Filt Rate 37; Glucose 106 mg/dL (65-110); HDL Direct 44 mg/dL; Potassium 3.9 mmol/L (3.4-5.0); Sodium 141 mmol/L (137-145); Triglycerides 151 mg/dL (<150)
[2023-01-30 08:15] LABS: LDL Cholesterol Direct 75 mg/dL
[2023-01-30 11:10] LABS: Hemoglobin A1C 5.8 % (<5.7)
== END 2023-01-30 07:25 | disposition home or self-care (01) ==
PROVIDERS: PCP Family Medicine; Visit Provider Family Medicine
DX: E78.5 Hyperlipidemia, unspecified (principal); R73.03 Prediabetes
CPT/HCPCS: 36415; 80053; 80061; 83036

== ENCOUNTER 2023-03-05 10:00 | Outpatient (RCR) | payer MEDICARE, SELFPAY ==
--- NOTE | 2023-02-24 12:05 | PTOPEVAL1 ---
Assessment and note entered by Sarah Delacruz, PT Evaluation Information Assessment Status Evaluation Diagnosis thoracic pain, lumbar pain, hip pain Onset December 2022 Subjective Information chronic back pain, increase pain in December--maybe due to more activity with warmer weather-- gardening and pulling weeds; no recent imaging for back; had previous PT for back/thoracic, heat and massage helped; is doing arm band exercises, but had to stop due to L wrist pain- now wearing immobilizer; is not doing any back exercises; to see pain management next week for back pain; when have back pain, cannot do anything but rest; take tylenol and wait; activity: live alone, indep with home and self care tasks; grandson assist with mowing yard; assist with baby sitting grand children; Reported Pain Level Pain Score Self Report Additional Pain Score Comments pain range in the past week 2-9/10; stabbing in R lumbar; also thoracic pain; sometimes pain in lateral R and L hips- usually with weather changes increase pain: activity with using arm and doing things decrease pain: tylenol, rest, heat/ice reported tolerances: sleeping 2-3 x/night with thoracic- lumbar pain; side sleeper R/L; Assessment PT Clinical Summary Yue has the diagnosis of thoracic, lumbar and hip pain. She has chronic issues with back pain and has PT in the past. She has an appointment next week with pain management . Self assessment Oswestry score of 46% limitation in activity level. She is wearing a L wrist immobilizer due to L wrist pain/? carpal tunnel. Activity level and sleep is disrupted eu to back pain. With the evaluation, she has tightness over hamstrings and anterior hip/quads; weakness over trunk and hips; poor standing position of trunk. Skilled PT services are indicated for modalities to decrease pain and spasms, therapeutic exercises to stretch and strengthen trunk and hips, with education for home exercises and posture correction. Plan of Care Interventions Electrical Stimulation,Gait Training,Manual Therapy,Mechanical Traction,Neuro Re-education, Patient Education,Therapeutic Activities, Therapeut
--- NOTE | 2023-02-27 08:20 | OPREHPOC ---
Outpatient Therapy Plan of Care This is a Multidisciplinary Plan of Care that may contain components documented by all disciplines (PT, OT, and ST.) PT Problem 1 PT Problem #1 Knowledge Deficit PT Goal 1 Goal 1* indep with home exercise program 2* demonstrate correct position with HEP PT Problem 2 PT Problem #2 Pain PT Goal 1 Goal 1* pt report pain rating at worst of 6/10 2* pt report with sleeping, awaken 1x/night due to pain 3* self assessment Oswestry score of 38% limitation in functioning PT Problem 3 PT Problem #3 Impaired Flexibility PT Goal 1 Goal hamstring flexibility with SLR to 65 1* R 2*L anterior hip/quad length with prone knee flexion 115' 3* R 4* L PT Problem 4 PT Problem #4 Impaired Strength PT Goal 1 Goal 1* pt perform 20 reps of mat strengthening exercises for trunk and hips iwth good stability
--- NOTE | 2023-03-10 08:46 | PCPTNOTE ---
Pt. canceled 03/10/23 appointment as she was sick.
--- NOTE | 2023-03-12 08:00 | PCPTNOTE ---
Pt. canceled 03/12/23 appointment stating that she was still sick.
--- NOTE | 2023-03-19 10:03 | PTOPDC ---
Assessment and note entered by Sarah Delacruz, PT Evaluation Information Assessment Status Discharge - Pt Not Present Diagnosis thoracic pain, lumbar pain, hip pain Onset December 2022 Assessment PT Clinical Summary Yue has received 2 PT sessions. She then called and canceled her therapy appointments due to abdominal issues and may have to have surgery. Discharge PT services. Goals were not addressed. Plan of Care PT Services Indicated No
== END 2023-03-19 11:26 | disposition home or self-care (01) ==
LOC: ANHPT 10:00
PROVIDERS: PCP Family Medicine; Visit Provider Family Medicine
DX: M54.6 Pain in thoracic spine (principal); M54.50 Low back pain, unspecified; M25.559 Pain in unspecified hip
CPT/HCPCS: 97110; 97140; 97161

== ENCOUNTER 2023-03-17 17:04 | Inpatient (IN) | payer MEDICARE, SELFPAY ==
[2023-03-17] VITALS (18 sets, daily range): BP systolic 128–179; BP diastolic 61–83; PULSE 63–77; RESP 18–26; TEMP 36.4; O2SAT 97–100; BMI 32.9
--- NOTE | ~2023-03-17 | US_ITS ---
EXAMINATION: US retroperitoneal comp DATE: 03/18/2023 09:01 INDICATION: Retroperitoneal mass. TECHNIQUE: Multiple ultrasound grayscale images of the kidneys were obtained. COMPARISON: CT abdomen and pelvis 03/17/2023, 04/19/21, 08/29/18, PET/CT 05/02/21 FINDINGS: The right kidney measures 11.7 x 3.9 x 5.1 cm. The left kidney measures 13.5 x 5.2 x 4.2 cm. The kidn eys demonstrate normal parenchymal echogenicity. There are cysts in the kidneys measuring up to 3.7 c m on the right. There is no hydronephrosis. The bladder is normal. Medial to right kidney, there is a 5.0 x 3.7 x 4.6 cm heterogeneous hypoechoic mass. IMPRESSION: 1. 5.0 x 3.7 x 4.6 cm right retroperitoneal mass. This finding measured 3.3 x 2.6 cm on 04/19/21 and wa s not present on 08/29/18. The mass did not have increased activity on PET on 05/02/21. This finding is suspicious for neoplasm such as gastrointestinal stromal tumor. 2. Normal kidney sizes. No hydronephrosis. Reviewed, dictated and finalized at location B. IMPRESSION: 1. 5.0 x 3.7 x 4.6 cm right retroperitoneal mass. This finding measured 3.3 x 2 .6 cm on 04/19/21 and was not present on 08/29/18. The mass did not have increased activity on PET on 05/02/21. This finding is suspicious for neoplasm such as ga strointestinal stromal tumor. 2. Normal kidney sizes. No hydronephrosis.
--- NOTE | ~2023-03-17 | CT_ITS ---
EXAMINATION: CT abdomen pelvis w con DATE: 03/17/2023 18:19 INDICATION: LLQ/lower abd pain, hx diverticulitis/bowel obst TECHNIQUE: Computed tomography (CT) of the abdomen and pelvis was performed with 100 mL Omnipaque-350 intravenous contrast. Automated exposure control and iterative reconstruction technique were employe d. The dose-length product was 888.57 mGy-cm. COMPARISON: 06/01/2022. FINDINGS: Lower thorax: Mild coronary artery versus aortic valve calcification. Mild cardiomegaly. Mild bibasil ar scar/atelectasis. Liver: Normal. Biliary/Gallbladder: Gallbladder is absent. Stable intra and extrahepatic bile duct dilation. Pancreas: No mass or duct dilation. Spleen: Normal. Adrenals:No mass. Kidneys: Right midpole cyst. Multiple bilateral hypodensities that are too small to characterize. Lef t midpole AML. No suspicious mass, obstructing calcification, or hydronephrosis. GI tract: No small or large bowel dilation. Surgically absent appendix. Ileocolic anastomosis. Severe diverticulosis without diverticulitis. Mesentery/Peritoneum: Stable prominent renetta hepatic lymph nodes. No free air or free fluid. Retroperitoneum: No mass. Atherosclerotic abdominal aortic and/or arterial calcifications. Pelvis: Mild bladder wall thickening in a partially distended urinary bladder. Surgically absent uter us. Soft Tissues: Soft tissues and body wall unremarkable. Bones: No acute osseous finding. IMPRESSION: Severe diverticulosis without CT evidence of diverticulitis. Considerable increased size of the right upper retroperitoneal mass, now measuring 5 cm possibly with interval central necrosis, reportedly previously biopsied yielding benign pathology, correlate with history. Cystitis versus wall thickening from incomplete urinary bladder distention. Additional chronic and incidental findings detailed above. Reviewed, dictated and finalized at location K. IMPRESSION: Severe diverticulosis without CT evidence of diverticulitis. Considerable increased size of the right upper retroperitoneal mass, now measur ing 5 cm possibly with interval central necrosis, reportedly previously biopsie d yielding benign pathology, correlate with history. Cystitis versus wall thickening from incomplete urinary bladder distention. Additional chronic and incidental findings detailed above.
[2023-03-17 17:34] LABS: Basophils Absolute Auto 0.1 K/mm3 (0.0-0.1); Basophils Percent Auto 0.7 % (0.2-1.2); Eosinophils Percent Auto 0.1 % (0-4.4); Hematocrit 36.8 % (37.0-47.0); Hemoglobin 12.4 g/dL (12.0-15.0); Immature Granulocyte Absolute 0.04 K/mm3 (0.00-0.031); Immature Granulocyte Percent A 0.6 % (0-0.5); Lymphocytes Absolute Auto 0.71 K/mm3 (0.9-3.2); Lymphocytes Percent Auto 10.4 % (18.3-44.2); Mean Corpuscular HGB Conc 33.7 g/dl (32-36); Mean Corpuscular Hemoglobin 26.1 pg (26-34); Mean Corpuscular Volume 77.3 fl (80-100); Mean Platelet Volume 10.9 fl (7.4-10.4); Monocytes Absolute Auto 0.7 K/mm3 (0.1-0.6); Monocytes Percent Auto 9.8 % (2.6-8.5); Neutrophils Absolute Auto 5.4 K/mm3 (1.3-6.7); Neutrophils Percent Auto 78.4 % (45.5-73.1); Platelet Count Result 312 k/mm3 (150-375); Red Blood Count 4.76 M/mm3 (4.2-5.4); Red Cell Distribution Width 13.9 % (11.5-14.5); White Blood Count 6.8 K/mm3 (4.5-10.0)
--- NOTE | 2023-03-17 17:40 | ED.ABDPAIN ---
HPI - Abdominal Pain General Chief Complaint: Abdominal Pain <ELSIE Tamayo Last Filed: 03/18/23 00:49> Stated Complaint: diverticulitis <ELSIE Tamayo Last Filed: 03/18/23 00:49> Time Seen by Provider: 03/17/23 17:35 <ELSIE Tamayo Last Filed: 03/18/23 00:49> Source: patient and old records reviewed <ELSIE Tamayo Last Filed: 03/18/23 00:49> Mode of arrival: ambulatory <ELSIE Tamayo Last Filed: 03/18/23 00:49> Limitations: no limitations <ELSIE Tamayo Last Filed: 03/18/23 00:49> History of Present Illness HPI narrative: Patient is a 78 y/o female who presents to the ED with c/o abdominal pain and constipation. Patient reports she developed diarrhea and loose stools 2 weeks ago. She also reported having some lower abdominal pain at that time. She has a history of diverticulitis and called her doctor about this. She was prescribed Cipro and Flagyl on 03/10. Over the weekend into this week, patient reports having decreased bowel movements, only passing small amounts of stool every other day. She does also note Hx of bowel obstruction. She has been trying to keep a clear liquid diet but reports having worsening pain with eating or drinking anything. She has become progressively weak and fatigued. Denies N/V, fevers, rectal bleeding, urinary sx's. <ELSIE Tamayo Last Filed: 03/18/23 00:49> Related Data Home Medications: Home Medications Medication Instructions Recorded Confirmed ezetimibe 10 mg tablet 10 mg PO QHS 03/17/23 03/17/23 fenofibrate 160 mg tablet 160 mg PO QHS 03/17/23 03/17/23 metronidazole 500 mg tablet 500 mg PO Q8H 03/17/23 03/17/23 montelukast 10 mg tablet 10 mg PO QHS 03/17/23 03/17/23 omeprazole 40 mg capsule,delayed 40 mg PO QHS 03/17/23 03/17/23 release telmisartan 80 1 tablet PO QHS 03/17/23 03/17/23 mg-hydrochlorothiazide 12.5 mg tablet (Micardis HCT) verapamil 240 mg 24 hr 480 mg PO QHS 03/17/23 03/17/23 capsule,extended release <Temitope Guerrero PA-C - Last Filed: 03/18/23 00:49> Allergies/Adverse Reactions: Allergies Allergy/AdvReac Type Severity Reaction Status Date / Time lisinopril Allergy Unknown swollen Verified 03/17/23 17:04 tongue naproxen Allergy Unknown Nose bleeds Verified 03/17/23 17:04 Nvpywzk-PFN-XgF Reductase Allergy Unknown Stomach Verified 03/17/23 17:04 Inhibitor pain [Oojgamo-Dsw-Uwz Reductase Inhibitor] Sulfa (Sulfonamide Allergy Unknown Rash Verified 03/17/23 17:04 Antibiotics) <Temitope Guerrero PA-C - Last Filed: 03/18/23 00:49> Review of Systems Review of Systems: CONSTITUTIONAL: Reports generalized weakness, fatigue. Denies fever, chills, or sweats. CARDIOVASCULAR: Denies chest pain. RESPIRATORY: Denies dyspnea. GASTROINTESTINAL: See HPI. GENITOURINARY: Denies dysuria or hematuria. MUSCULOSKELETAL: Denies back pain, joint pain, or myalgia. NEUROLOGIC: Denies headache, numbness, or weakness. 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
[2023-03-17 17:47] LABS: Alanine Aminotransferase 33 U/L (6-35); Albumin Level 4.4 g/dL (3.5-5.1); Alkaline Phosphatase 64 U/L (38-126); Anion Gap 14 mmol/L (8-16); Aspartate Amino Transferase 74 U/L (14-36); Bilirubin,Total 0.6 mg/dL (0.2-1.3); Blood Urea Nitrogen 25 mg/dL (7-17); Calcium 8.7 mg/dL (8.4-10.2); Carbon Dioxide 19 mmol/L (22-30); Chloride 85 mmol/L (98-107); Estimated CRCL calculation 28 ml/min; Estimated Glomerular Filt Rate 34; Glucose 127 mg/dL (65-110); Lipase 86 U/L (23-300); Potassium 3.1 mmol/L (3.4-5.0); Sodium 118 mmol/L (137-145)
[2023-03-17 18:29] LABS: Lactic Acid Reflex 2.1 mmol/L (0.7-2.0)
[2023-03-17 18:31] LABS: Magnesium 1.6 mg/dL (1.6-2.3)
[2023-03-17] MEDS: POTASSIUM CHLORIDE INJ 40 MEQ in SODIUM CHLORIDE 0.9% IV 500 ML 130 MEQ IVPB (18:37)
[2023-03-17 18:43] LABS: Appearance Urine Clear (Clear); Bilirubin Urine Negative (Negative); Blood Urine Negative (Negative); Color Urine Yellow (Yellow); Glucose Urine UA Negative (Negative); Ketones Urine Negative (Negative); Leukocyte Esterase Ur Negative LEU/UL (Negative); Nitrate Urine Negative (Negative); Protein Urine Negative (Negative); Specific Grav Ur 1.034 (1.001-1.035); Urobilinogen Urine 0.2 mg/dL (<2.0)
[2023-03-17] MEDS: SODIUM CHLORIDE 0.9% IV 1,000 ML 999 ML IV CONT ×2 (18:43→20:04)
[2023-03-17] MEDS: MAGNESIUM SULF 1 GM/D5W 100 ML 1 GM/100 ML BAG IVPB (18:43)
[2023-03-17 18:50] LABS: Add Urine Microscopic? NO
--- NOTE | 2023-03-17 19:15 | PC.NURSE ---
report taken from Sheila. Per wait till current IVF is complete to hang second bag
--- NOTE | 2023-03-17 19:57 | PC.NURSE ---
report called to [facility]
--- NOTE | 2023-03-17 20:05 | PC.NURSE ---
labs drawn and ivf are hanging before going to the floor. pt was ambulatory to restroom
[2023-03-17 20:27] LABS: Anion Gap 11 mmol/L (8-16); Blood Urea Nitrogen 24 mg/dL (7-17); Calcium 8.3 mg/dL (8.4-10.2); Carbon Dioxide 23 mmol/L (22-30); Chloride 86 mmol/L (98-107); Estimated CRCL calculation 30 ml/min; Estimated Glomerular Filt Rate 37; Glucose 116 mg/dL (65-110); Potassium 3.3 mmol/L (3.4-5.0); Sodium 120 mmol/L (137-145)
[2023-03-17 21:17] LABS: Reflex Lactic Acid Yes or No Add Lactic
--- NOTE | 2023-03-17 21:29 | ADMGEN ---
This patient, Yue Gaviria, was admitted to 2 Medical Room 260-. Patient/family oriented to hospital policies and general routines including ID bracelet, bed and alarms, visiting hours, pain management, procedures, bathroom and other care routines, personal items, smoking policy, room service/diet, and visiting hours. Information on how to activate the Rapid Response Team has been discussed. Patient/Family are encouraged to report perceived risks to care and to ask questions if they do not understand what they are told or what they should do.
[2023-03-17 21:44] LABS: Lactic Acid 0.9 mmol/L (0.7-2.0)
--- NOTE | 2023-03-17 23:07 | PM.IMHP ---
H&P: HPI History of Present Illness Date/Time: 03/17/23 23:07 Chief Complaint: Abdominal pain Narrative: This is a 78-year-old female patient who has a history of having severe diverticulosis. The patient has been having this abdominal pain for approximately 2 weeks. She is also thing having some loose stools and had was having lower abdominal tenderness. She notified her doctor and she was prescribed Cipro and Flagyl on 03/10 which she has already completed. The patient stated that her bowel movements are slowing down and was only passing small amounts of stool each day. 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 The patient has had a small-bowel obstruction in the past. She has been trying to keep clear liquid diet but the pain gets worse when she eats or drink anything heavy. She has become more weak and fatigued. She denies any nausea vomiting or fever. No rectal bleeding or urinary symptoms. Her white count was found to be normal. Initially her sodium was 118 and did come up to 120. Potassium was 3.1 and is now 3.3. Chloride 85 and now 86. BUN is 25 now 24 creatinine 1.5 now 1.4. Patient is close to her baseline with a BUN and creatinine. Her GFR is now 37. Abdominal pelvis CT was read as the followingConsiderable increased size of the right upper retroperitoneal mass, now measuring 5 cm possibly with interval central necrosis, reportedly previously biopsied yielding benign pathology, correlate with history. Cystitis versus wall thickening from incomplete urinary bladder distention. Additional chronic and incidental findings detailed above. The patient was started on IV fluids, p.o. potassium, and magnesium. The patient was admitted to observation status on the date of service of 03/17/2023. Review of Systems Review of Systems: All systems reviewed & are unremarkable except as noted in HPI and below Constitutional: Constitutional: Reports as per HPI and Reports no additional constitutional complaints Eyes: Eyes: Reports as per HPI and Reports no additional eye complaints ENT: Reports system reviewed and no additional complaints, except as documented and Reports Normal hearing present Cardiovascular: Cardiovascular: Reports no additional cardiovascular complaints Respiratory: Respiratory: Reports no additional respiratory complaints and Reports no additional respiratory complaints Gastrointestinal: Gastrointestinal: Reports as per HPI and Reports no additional gastrointestinal complaints Musculoskeletal: Musculoskeletal: Reports no additional musculoskeletal complaints Integumentary/Breasts: Skin/Breast: Reports system reviewed and no additional complaints, except as docu and Reports as per HPI Neurologic: Reports system reviewed and no additional complaints, except as documented, Reports as per HPI and Reports Normal hearing present Psychiatric: Psychiatric: Reports no additional psychiatric complaints and Reports as per HPI Endocrine: Endocrine: Reports no additional endocrine complaints Hematologic/Lymphatic: Hematologic/Lymphatic: Reports no additional hematologic/lymphatic complaints Allergic/Immunologic: Allergic/Immunologic: Reports no additional allergic/immunologic complaints [facility] Past Medical History Medical History (Updated 03/18/23 @ 00:51 by Ellen Maya NP) Bilateral hip pain Chronic GERD Chronic renal failure, stage 3 (moderate) COVID-19 Diverticulosis Essential (primary) hypertension Exposure to COVID-19 virus Exposure to COVID-19 virus 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
[2023-03-17] MEDS: PANTOPRAZOLE 40 MG TABLET PO (23:47)
[2023-03-17] MEDS: FENOFIBRATE 160 MG TABLET PO (23:47)
[2023-03-17] MEDS: metroNIDAZOLE 250 MG TABLET 500 MG PO (23:47)
[2023-03-17] MEDS: VERAPAMIL HCL ER 240 MG TABLET.ER 480 MG PO (23:47)
[2023-03-17] MEDS: EZETIMIBE 10 MG TABLET PO (23:47)
[2023-03-17] MEDS: CIPROFLOXACIN 500 MG TAB PO (23:47)
[2023-03-17] MEDS: MONTELUKAST SODIUM 10 MG TABLET PO (23:47)
[2023-03-18] MEDS: SODIUM CHLORIDE 0.9% IV 1,000 ML 100 ML IV CONT (00:42)
[2023-03-18 00:59] LABS: Anion Gap 5 mmol/L (8-16); Blood Urea Nitrogen 20 mg/dL (7-17); Calcium 8.3 mg/dL (8.4-10.2); Carbon Dioxide 23 mmol/L (22-30); Chloride 93 mmol/L (98-107); Estimated CRCL calculation 30 ml/min; Estimated Glomerular Filt Rate 37; Glucose 100 mg/dL (65-110); Potassium 3.4 mmol/L (3.4-5.0); Sodium 121 mmol/L (137-145)
[2023-03-18 04:42] LABS: Potassium Urine Random 7.3 meq/L
[2023-03-18 04:43] LABS: Sodium Urine Random 31 meq/L
[2023-03-18 04:48] LABS: Urea Random Urine 143 MG/DL
[2023-03-18 04:52] LABS: Creatinine Urine 18.4 mg/dL; Total Protein Urine Random 11 mg/dL
[2023-03-18 05:33] VITALS: BP 149/54; PULSE 54; RESP 20; TEMP 36.5; O2SAT 96
[2023-03-18 05:40] LABS: Basophils Percent Auto 0.7 % (0.2-1.2); Eosinophils Percent Auto 0.2 % (0-4.4); Hematocrit 34.9 % (37.0-47.0); Hemoglobin 11.3 g/dL (12.0-15.0); Immature Granulocyte Absolute 0.01 K/mm3 (0.00-0.031); Immature Granulocyte Percent A 0.2 % (0-0.5); Lymphocytes Absolute Auto 0.97 K/mm3 (0.9-3.2); Lymphocytes Percent Auto 22.4 % (18.3-44.2); Mean Corpuscular HGB Conc 32.4 g/dl (32-36); Mean Corpuscular Hemoglobin 25.7 pg (26-34); Mean Corpuscular Volume 79.5 fl (80-100); Mean Platelet Volume 11.1 fl (7.4-10.4); Monocytes Absolute Auto 0.6 K/mm3 (0.1-0.6); Monocytes Percent Auto 14.5 % (2.6-8.5); Neutrophils Absolute Auto 2.7 K/mm3 (1.3-6.7); Platelet Count Result 221 k/mm3 (150-375); Red Blood Count 4.39 M/mm3 (4.2-5.4); Red Cell Distribution Width 13.9 % (11.5-14.5); White Blood Count 4.3 K/mm3 (4.5-10.0)
[2023-03-18 05:55] LABS: Alanine Aminotransferase 28 U/L (6-35); Albumin Level 3.4 g/dL (3.5-5.1); Alkaline Phosphatase 56 U/L (38-126); Anion Gap 8 mmol/L (8-16); Aspartate Amino Transferase 59 U/L (14-36); Bilirubin,Total 0.5 mg/dL (0.2-1.3); Blood Urea Nitrogen 18 mg/dL (7-17); Calcium 8.2 mg/dL (8.4-10.2); Carbon Dioxide 19 mmol/L (22-30); Chloride 98 mmol/L (98-107); Estimated CRCL calculation 35 ml/min; Estimated Glomerular Filt Rate 44; Glucose 96 mg/dL (65-110); Lipase 95 U/L (23-300); Potassium 3.3 mmol/L (3.4-5.0); Sodium 125 mmol/L (137-145)
[2023-03-18 06:44] LABS: Thyroid Stimulating Hormone Reflex 0.521 uIU/mL (0.465-4.68)
[2023-03-18] MEDS: POTASSIUM CHLORIDE 20 MEQ PACKET (FOR LIQUID) 40 MEQ PO (09:08)
[2023-03-18] MEDS: PANTOPRAZOLE 40 MG TABLET PO ×2 (09:11→20:45)
[2023-03-18 10:07] LABS: Sodium 128 mmol/L (137-145)
[2023-03-18] MEDS: ACETAMINOPHEN 325 MG TABLET 650 MG PO (10:28)
[2023-03-18] MEDS: DEXTROSE 5% IN WATER 500 ML 250 ML IV CONT (12:05)
--- NOTE | 2023-03-18 13:59 | PM.IMPN ---
Progress Note: A&P Assessment and Plan (1) Diverticulosis: Code(s): K57.90 - Diverticulosis of intestine, part unspecified, without perforation or abscess without bleeding Status: Acute Assessment and Plan: Patient was already treated with Cipro and Flagyl 1st diverticulitis. There is no sign of diverticulitis at this time. However the patient remains tender to lower abdomen. CT scan was read as follows severe diverticulosis without CT evidence of diverticulitis. Patient has completed the Cipro and Flagyl already. No further antibiotics are required at this time. Patient has a history of having a colon resection. (2) Retroperitoneal mass: Code(s): R19.00 - Intra-abdominal and pelvic swelling, mass and lump, unspecified site Status: Acute Assessment and Plan: This retroperitoneal mass was noted in general surgery note on 05/28/2021. And the retroperitoneal mass was located between the head of the pancreas what numb and IVC. It was noted to be 3.8 cm x 3.1 cm in the CTA. 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 See the [facility] from [facility] on 05/20/2021. Also on 08/17/2021 there was a letter sent to Dr. Voss concerning her. 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 It was noted that the patient was made aware of this. However the patient has no recollection of this. The ER provider explain all this to the patient. However today's CT scan was read as follows Severe diverticulosis without CT evidence of diverticulitis. Considerable increased size of the right upper retroperitoneal mass, now measuring 5 cm possibly with interval central necrosis, reportedly previously biopsied yielding benign pathology, correlate with history. Abdominal ultrasound revealing 5 x 3.7 x 4.6 cm right retroperitoneal mass that did not have increased activity on PET on 05/02/2021 suspicious for neoplasm such as gastrointestinal stromal tumor. Will consult oncology. (3) Acute hyponatremia: Code(s): E87.1 - Hypo-osmolality and hyponatremia Status: Acute Assessment and Plan: The patient stated that she has been having diarrhea that started 2 weeks ago. Continue with IV fluids. Nephrology had been consulted per ED. Continue with BMPs every 4 hours. Hold her hydrochlorothiazide tonight. (4) Hypomagnesemia: Code(s): E83.42 - Hypomagnesemia Status: Acute Assessment and Plan: Replace as necessary. Recheck in the a.m.. (5) Hypokalemia: Code(s): E87.6 - Hypokalemia Status: Acute Assessment and Plan: Replace as necessary. Will get stool cultures as well. The patient stated that she started having loose stools before she received the antibiotics. Check her urine for electrolytes. (6) Chronic GERD: Code(s): K21.9 - Gastro-esophageal reflux disease without esophagitis Status: Chronic Assessment and Plan: Continue with pantoprazole (7) Hyperlipidemia: Code(s): E78.5 - Hyperlipidemia, unspecified Status: Chronic Assessment and Plan: Continue with Zetia (8) Essential (primary) hypertension: Code(s): I10 - Essential (primary) hypertension Status: Chronic Assessment and Plan: Her losartan with hydrochlorothiazide is on hold at this time due to her electrolyte abnormalities. Continue with verapamil in p.r.n. hydralazine. (9) Chronic renal failure, stage 3 (moderate): Code(s): N18.30 - Chronic kidney disease, stage 3 unspecified Status: Acute Assessment and Plan: The patient is close to her baseline. Will continue to monitor. Subjective Date/time seen: 03/18/23 13:59 Interval history: Patient feeling slightly better today. She continues to have lower abdominal pain. There is no evidence of diverticuliti
[2023-03-18 14:21] LABS: Toxigenic C. Diff NEGATIVE (NEGATIVE)
--- NOTE | 2023-03-18 14:40 | PM.CNNEP ---
Assessment and Plan Assessment and plan (1) Hyponatremia: Code(s): E87.1 - Hypo-osmolality and hyponatremia Status: Acute Assessment and Plan: acute sodium normal ~ 2 months ago risk factors for low sodium: prerenal factors HCTZ use pain issues PPI use baseline CKD malignancy?? (retroperitoneal mass) sodium better at this time but overcorrecting will give D5W IVFs recheck sodium 1 hour after infusion complete attempting to keeps sodium ~ 126 by 5:00pm today evaluation to date noted: TSH and cortisol okay urine electrolyte non-prerenal SPEP and UPEP pending follow trend of repeat sodium levels (2) Hypokalemia: Code(s): E87.6 - Hypokalemia Status: Acute Assessment and Plan: due to GI loss and low magnesium replete as needed follow trend (3) Hypomagnesemia: Code(s): E83.42 - Hypomagnesemia Status: Acute Assessment and Plan: suspect due to GI loss replete as needed follow trend of repeat levels (4) Retroperitoneal mass: Code(s): R19.00 - Intra-abdominal and pelvic swelling, mass and lump, unspecified site Status: Acute Assessment and Plan: imaging and previous testing noted Oncology consulted for further evaluation (5) Essential (primary) hypertension: Code(s): I10 - Essential (primary) hypertension Status: Chronic Assessment and Plan: fluctuating but pain control playing a role off HCTZ due to #1 follow trend of hemodynamics I will continue to follow the patient with you while she remains hospitalized to make further recommendations as needed. Thank you for allowing me to participate in the care of this patient. History of Present Illness Reason for Consult Consult date: 03/18/23 Reason for consult: hyponatremia Chief Complaint Chief complaint: Hyponatremia/Hypokalemia/Generalized Weakness/Dehy History of Present Illness Narrative: The patient is a 78-year-old female with a past medical history as outlined below who presented to [facility] Emergency room due to complaints of abdominal pain. The patient reports that she has been having abdominal pain for approximately two weeks if not longer in association with loose stools. Initially, she notified her primary care physician about the symptoms and given her known history of diverticulitis, he empirically prescribed oral ciprofloxacin and Flagyl which she completed. However, she is still having the aforementioned loose stools and lower abdominal pain and came to the emergency room for further assessment. Workup and evaluation in the emergency room demonstrated normal CBC within normal at blood cell count but her chemistry was significantly abnormal with a sodium level of 118 and a mildly elevated BUN and creatinine. Furthermore, given her abdominal pain and complex history with regard to her abdomen, a CT scan was done which demonstrated a considerable increase in the size of the right upper retroperitoneal mass with evidence of diverticulosis but no diverticulitis. He repeat sodium level was up to 120 and she was initiated on IV fluids on the assumption that her hyponatremia was related to her poor oral intake and GI loss. She was subsequently admitted to the hospital for further evaluation and therapy. Since her admission, her abdominal pain seems about the same if not maybe slightly better. However, her sodium level has continued to improved but has overcorrected by her most recent sodium level. Renal consultation was requested due to her acute hyponatremia. From review of her labs that were done two months ago, her sodium levels well within normal limits. Her risk factors for low sodium level include the use of hydrochlorothiazide, possible prerenal factors given her GI symptoms/loss, chronic pain, previous use of narcotics, and questionable malignancy with regard to her retroperitoneal mass. Despite her low
--- NOTE | 2023-03-18 14:40 | P.CONNP_ITS ---
Assessment and Plan Assessment and plan (1) Hyponatremia: Code(s): E87.1 - Hypo-osmolality and hyponatremia Status: Acute Assessment and Plan: * acute * sodium normal ~ 2 months ago * risk factors for low sodium: * prerenal factors * HCTZ use * pain issues * PPI use * baseline CKD * malignancy?? (retroperitoneal mass) * sodium better at this time but overcorrecting * will give D5W IVFs * recheck sodium 1 hour after infusion complete * attempting to keeps sodium ~ 126 by 5:00pm today * evaluation to date noted: * TSH and cortisol okay * urine electrolyte non-prerenal * SPEP and UPEP pending * follow trend of repeat sodium levels (2) Hypokalemia: Code(s): E87.6 - Hypokalemia Status: Acute Assessment and Plan: * due to GI loss and low magnesium * replete as needed * follow trend (3) Hypomagnesemia: Code(s): E83.42 - Hypomagnesemia Status: Acute Assessment and Plan: * suspect due to GI loss * replete as needed * follow trend of repeat levels (4) Retroperitoneal mass: Code(s): R19.00 - Intra-abdominal and pelvic swelling, mass and lump, unspecified site Status: Acute Assessment and Plan: * imaging and previous testing noted * Oncology consulted for further evaluation (5) Essential (primary) hypertension: Code(s): I10 - Essential (primary) hypertension Status: Chronic Assessment and Plan: * fluctuating but pain control playing a role * off HCTZ due to #1 * follow trend of hemodynamics I will continue to follow the patient with you while she remains hospitalized to make further recommendations as needed. Thank you for allowing me to participate in the care of this patient. History of Present Illness Reason for Consult Consult date: 03/18/23 Reason for consult: hyponatremia Chief Complaint Chief complaint: Hyponatremia/Hypokalemia/Generalized Weakness/Dehy History of Present Illness Narrative: The patient is a 78-year-old female with a past medical history as outlined below who presented to [facility] Emergency room due to complaints of abdominal pain. The patient reports that she has been having abdominal pain for approximately two weeks if not longer in association with loose stools. Initially, she notified her primary care physician about the symptoms and given her known history of diverticulitis, he empirically prescribed oral ciprofloxacin and Flagyl which she completed. However, she is still having the aforementioned loose stools and lower abdominal pain and came to the emergency room for further assessment. Workup and evaluation in the emergency room demonstrated normal CBC within normal at blood cell count but her chemistry was significantly abnormal with a sodium level of 118 and a mildly elevated BUN and creatinine. Furthermore, given her abdominal pain and complex history with regard to her abdomen, a CT scan was done which demonstrated a considerable increase in the size of the right upper retroperitoneal mass with evidence of diverticulosis but no diverticulitis. He repeat sodium level was up to 120 and she was initiated on IV fluids on the assumption that her hyponatremia was related to her poor oral intake and GI loss. She was subsequently admitted to the hospital for further evaluation and therapy. Since her admission, her abdominal pain seems about the same if not maybe slightly better. However, her sodium level has continued to improved but has overcorrected by her most recent
[2023-03-18 15:09] VITALS: BP 133/56; PULSE 57; RESP 16; TEMP 37; O2SAT 100
[2023-03-18 15:22] LABS: Sodium 126 mmol/L (137-145)
[2023-03-18 17:47] LABS: Sodium 126 mmol/L (137-145)
[2023-03-18 20:00] VITALS: PULSE 57; RESP 16; O2SAT 100
[2023-03-18] MEDS: EZETIMIBE 10 MG TABLET PO (20:45)
[2023-03-18] MEDS: FENOFIBRATE 160 MG TABLET PO (20:45)
[2023-03-18] MEDS: MONTELUKAST SODIUM 10 MG TABLET PO (20:45)
[2023-03-18] MEDS: VERAPAMIL HCL ER 240 MG TABLET.ER 480 MG PO (20:45)
[2023-03-18 22:00] VITALS: BP 141/63; PULSE 61; RESP 18; TEMP 36.3; O2SAT 96
[2023-03-19 05:48] LABS: Alanine Aminotransferase 26 U/L (6-35); Albumin Level 3.2 g/dL (3.5-5.1); Alkaline Phosphatase 48 U/L (38-126); Anion Gap 5 mmol/L (8-16); Aspartate Amino Transferase 61 U/L (14-36); Bilirubin,Total 0.5 mg/dL (0.2-1.3); Blood Urea Nitrogen 12 mg/dL (7-17); Calcium 8.1 mg/dL (8.4-10.2); Carbon Dioxide 20 mmol/L (22-30); Chloride 101 mmol/L (98-107); Estimated CRCL calculation 38 ml/min; Estimated Glomerular Filt Rate 48; Glucose 96 mg/dL (65-110); Magnesium 1.8 mg/dL (1.6-2.3); Potassium 3.5 mmol/L (3.4-5.0); Sodium 126 mmol/L (137-145)
[2023-03-19 05:51] LABS: Basophils Absolute Auto 0.1 K/mm3 (0.0-0.1); Basophils Percent Auto 1.5 % (0.2-1.2); Eosinophils Absolute Auto 0.1 K/mm3 (0-0.3); Eosinophils Percent Auto 2.3 % (0-4.4); Hematocrit 34.7 % (37.0-47.0); Hemoglobin 11.3 g/dL (12.0-15.0); Immature Granulocyte Absolute 0.01 K/mm3 (0.00-0.031); Immature Granulocyte Percent A 0.3 % (0-0.5); Lymphocytes Absolute Auto 1.09 K/mm3 (0.9-3.2); Lymphocytes Percent Auto 27.4 % (18.3-44.2); Mean Corpuscular HGB Conc 32.6 g/dl (32-36); Mean Corpuscular Hemoglobin 26.1 pg (26-34); Mean Corpuscular Volume 80.1 fl (80-100); Mean Platelet Volume 11.2 fl (7.4-10.4); Monocytes Absolute Auto 0.5 K/mm3 (0.1-0.6); Monocytes Percent Auto 11.8 % (2.6-8.5); Neutrophils Absolute Auto 2.3 K/mm3 (1.3-6.7); Neutrophils Percent Auto 56.7 % (45.5-73.1); Platelet Count Result 206 k/mm3 (150-375); Red Blood Count 4.33 M/mm3 (4.2-5.4); Red Cell Distribution Width 14.5 % (11.5-14.5)
[2023-03-19 06:00] VITALS: BP 134/53; PULSE 54; RESP 16; TEMP 36.6; O2SAT 98
[2023-03-19] MEDS: PANTOPRAZOLE 40 MG TABLET PO ×2 (10:23→20:36)
[2023-03-19] MEDS: SODIUM CHLORIDE 0.9% IV 1,000 ML 75 ML IV CONT ×2 (10:23→23:45)
[2023-03-19] MEDS: ACETAMINOPHEN 325 MG TABLET 650 MG PO (10:44)
--- NOTE | 2023-03-19 13:50 | P.PNNP_ITS ---
Progress Note: A&P Assessment and Plan (1) Hyponatremia: Code(s): E87.1 - Hypo-osmolality and hyponatremia Status: Acute Assessment and Plan: * slow improvement noted * acute * sodium normal ~ 2 months ago * risk factors for low sodium: * prerenal factors * HCTZ use * pain issues * PPI use * baseline CKD * malignancy?? (retroperitoneal mass) * evaluation to date noted: * TSH and cortisol okay * urine electrolyte non-prerenal * SPEP and UPEP pending * restart normal saline IVFs * follow trend of repeat sodium levels (2) Hypokalemia: Code(s): E87.6 - Hypokalemia Status: Acute Assessment and Plan: * due to GI loss and low magnesium * replete as needed * follow trend (3) Hypomagnesemia: Code(s): E83.42 - Hypomagnesemia Status: Acute Assessment and Plan: * suspect due to GI loss * replete as needed * follow trend of repeat levels (4) Retroperitoneal mass: Code(s): R19.00 - Intra-abdominal and pelvic swelling, mass and lump, unspecified site Status: Acute Assessment and Plan: * imaging and previous testing noted * Oncology recommendations noted (5) Essential (primary) hypertension: Code(s): I10 - Essential (primary) hypertension Status: Chronic Assessment and Plan: * fluctuating but pain control playing a role * off HCTZ due to #1 * follow trend of hemodynamics Will continue to follow. Subjective Date/time seen: 03/19/23 13:50 Interval history: Follow-up for acute hyponatremia. Overcorrection prevented yesterday with the use of D5W IVFs and discontinuation of normal saline IVFs; no other acute issues/events overnight or earlier this morning; no apparent distress voiced at this time. Exam Narrative: General: elderly but WD/WN female in NAD Heart: normal S1 and S2; no rub Lungs: clear to auscultation Abdomen: soft, nontender, nondistended, positive bowel sounds Extremities: no cyanosis or clubbing; no edema Skin: warm and dry Objective Data Vital Signs Vital Signs: Vital Signs Temp Pulse Resp BP Pulse Ox O2 Del Method 03/19/23 13:40 97.9 F 62 14 147/53 H 100 03/19/23 08:00 Room Air 03/19/23 06:00 97.8 F 54 L 16 134/53 L 98 03/18/23 22:00 97.3 F L 61 18 141/63 H 96 03/18/23 20:00 57 L 16 100 Room Air Intake/Output Intake/Output: Intake & Output 03/16/23 03/17/23 03/18/23 03/19/23 23:59 23:59 23:59 23:59 Intake Total 1000 1920 1110 Output Total 600 2150 1000 Balance 400 -230 110 Meds/Results Medications: Active Medications Generic Name Dose Route Start Last Admin Trade Name Freq PRN Reason Stop Dose Admin Acetaminophen 650 mg 03/18/23 10:02 03/19/23 10:44 Acetaminophen 325 Mg Tablet PO 650 mg Q6H PRN Administration Mild Pain (1-3) or Fever Hydrocodone Bitart/Acetaminophen 1 tab 03/17/23 23:08 Hydrocodone/Acetaminophen (*Crx) 5-325 Mg Tablet PO BID PRN PAIN RATED 4-6 Cyclobenzaprine HCl 10 mg 03/17/23 23:08 Cyclobenzaprine Hcl 10 Mg Tablet PO
--- NOTE | 2023-03-19 13:50 | PM.PNNEP ---
Progress Note: A&P Assessment and Plan (1) Hyponatremia: Code(s): E87.1 - Hypo-osmolality and hyponatremia Status: Acute Assessment and Plan: slow improvement noted acute sodium normal ~ 2 months ago risk factors for low sodium: prerenal factors HCTZ use pain issues PPI use baseline CKD malignancy?? (retroperitoneal mass) evaluation to date noted: TSH and cortisol okay urine electrolyte non-prerenal SPEP and UPEP pending restart normal saline IVFs follow trend of repeat sodium levels (2) Hypokalemia: Code(s): E87.6 - Hypokalemia Status: Acute Assessment and Plan: due to GI loss and low magnesium replete as needed follow trend (3) Hypomagnesemia: Code(s): E83.42 - Hypomagnesemia Status: Acute Assessment and Plan: suspect due to GI loss replete as needed follow trend of repeat levels (4) Retroperitoneal mass: Code(s): R19.00 - Intra-abdominal and pelvic swelling, mass and lump, unspecified site Status: Acute Assessment and Plan: imaging and previous testing noted Oncology recommendations noted (5) Essential (primary) hypertension: Code(s): I10 - Essential (primary) hypertension Status: Chronic Assessment and Plan: fluctuating but pain control playing a role off HCTZ due to #1 follow trend of hemodynamics Will continue to follow. Subjective Date/time seen: 03/19/23 13:50 Interval history: Follow-up for acute hyponatremia. Overcorrection prevented yesterday with the use of D5W IVFs and discontinuation of normal saline IVFs; no other acute issues/events overnight or earlier this morning; no apparent distress voiced at this time. Exam Narrative: General: elderly but WD/WN female in NAD Heart: normal S1 and S2; no rub Lungs: clear to auscultation Abdomen: soft, nontender, nondistended, positive bowel sounds Extremities: no cyanosis or clubbing; no edema Skin: warm and dry Objective Data Vital Signs Vital Signs: Vital Signs Temp Pulse Resp BP Pulse Ox O2 Del Method 03/19/23 13:40 97.9 F 62 14 147/53 H 100 03/19/23 08:00 Room Air 03/19/23 06:00 97.8 F 54 L 16 134/53 L 98 03/18/23 22:00 97.3 F L 61 18 141/63 H 96 08/02/23 20:00 57 L 16 100 Room Air Intake/Output Intake/Output: Intake & Output 03/16/23 03/17/23 03/18/23 03/19/23 23:59 23:59 23:59 23:59 Intake Total 1000 1920 1110 Output Total 600 2150 1000 Balance 400 -230 110 Meds/Results Medications: Active Medications Generic Name Dose Route Start Last Admin Trade Name Freq PRN Reason Stop Dose Admin Acetaminophen 650 mg 03/18/23 10:02 03/19/23 10:44 Acetaminophen 325 Mg Tablet PO 650 mg Q6H PRN Administration Mild Pain (1-3) or Fever Hydrocodone Bitart/Acetaminophen 1 tab 03/17/23 23:08 Hydrocodone/Acetaminophen (*Crx) 5-325 Mg Tablet PO BID PRN PAIN RATED 4-6 Cyclobenzaprine HCl 10 mg 03/17/23 23:08 Cyclobenzaprine Hcl 10 Mg Tablet PO TID PRN muscle spasm Ezetimibe 10 mg 03/17/23 23:15 03/18/23 20:45 Ezetimibe 10 Mg Tablet PO 10 mg QHS CLAY Administration Fenofibrate 160 mg 03/17/23 23:15 03/18/23 20:45 Fenofibrate 160 Mg Tablet PO 160 mg QHS CLAY Administration Hydralazine HCl 10 mg 03/18/23 00:49 Hydralazine Hcl 20 Mg/Ml Vial IV PUSH Q8H PRN Blood Pressure - High Sodium Chloride 1,000 mls @ 75 mls/hr 03/18/23 17:55 03/19/23 10:23 Normal Saline Iv IV CONT 75 mls/hr .[id number] CLAY Administration Montelukast Sodium 10 mg 03/17/23 23:10 03/18/23 20:45 Montelukast Sodium 10 Mg Tablet PO 10 mg QHS CLAY Administration Morphine Sulfate 2 mg 03/17/23 19:05 Morphine Sulfate (*Crx) 2 Mg/Ml Inj IV PUSH Q4H PRN Pain Rated 7-10 Ondansetron HCl 4 mg 03/17/23 18:59 Ondansetron Inj 4 Mg/2 Ml Vial IV PUSH
[2023-03-19 14:40] VITALS: BP 147/53; PULSE 62; RESP 14; TEMP 36.6; O2SAT 100
--- NOTE | 2023-03-19 15:27 | PM.IMPN ---
Progress Note: A&P Assessment and Plan (1) Diverticulosis: Code(s): K57.90 - Diverticulosis of intestine, part unspecified, without perforation or abscess without bleeding Status: Acute Assessment and Plan: Patient was already treated with Cipro and Flagyl 1st diverticulitis. There is no sign of diverticulitis at this time. However the patient remains tender to lower abdomen. CT scan was read as follows severe diverticulosis without CT evidence of diverticulitis. Patient has completed the Cipro and Flagyl already. No further antibiotics are required at this time. Patient has a history of having a colon resection. (2) Retroperitoneal mass: Code(s): R19.00 - Intra-abdominal and pelvic swelling, mass and lump, unspecified site Status: Acute Assessment and Plan: This retroperitoneal mass was noted in general surgery note on 05/28/2021. And the retroperitoneal mass was located between the head of the pancreas what numb and IVC. It was noted to be 3.8 cm x 3.1 cm in the CTA. 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 See the note from [facility] on 05/20/2021. Also on 08/17/2021 there was a letter sent to Dr. Voss concerning her. 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 It was noted that the patient was made aware of this. However the patient has no recollection of this. The ER provider explain all this to the patient. However today's CT scan was read as follows Severe diverticulosis without CT evidence of diverticulitis. Considerable increased size of the right upper retroperitoneal mass, now measuring 5 cm possibly with interval central necrosis, reportedly previously biopsied yielding benign pathology, correlate with history. Abdominal ultrasound revealing 5 x 3.7 x 4.6 cm right retroperitoneal mass that did not have increased activity on PET on 05/02/2021 suspicious for neoplasm such as gastrointestinal stromal tumor. Will consult oncology. (3) Acute hyponatremia: Code(s): E87.1 - Hypo-osmolality and hyponatremia Status: Acute Assessment and Plan: The patient stated that she has been having diarrhea that started 2 weeks ago. Continue with IV fluids. Nephrology had been consulted per ED. Continue with BMPs every 4 hours. Hold her hydrochlorothiazide sodium 126 currently and stable. (4) Hypomagnesemia: Code(s): E83.42 - Hypomagnesemia Status: Acute Assessment and Plan: Replace as necessary. Recheck in the a.m.. (5) Hypokalemia: Code(s): E87.6 - Hypokalemia Status: Acute Assessment and Plan: Replace as necessary. Will get stool cultures as well. The patient stated that she started having loose stools before she received the antibiotics. Check her urine for electrolytes. (6) Chronic GERD: Code(s): K21.9 - Gastro-esophageal reflux disease without esophagitis Status: Chronic Assessment and Plan: Continue with pantoprazole (7) Hyperlipidemia: Code(s): E78.5 - Hyperlipidemia, unspecified Status: Chronic Assessment and Plan: Continue with Zetia (8) Essential (primary) hypertension: Code(s): I10 - Essential (primary) hypertension Status: Chronic Assessment and Plan: Her losartan with hydrochlorothiazide is on hold at this time due to her electrolyte abnormalities. Continue with verapamil in p.r.n. hydralazine. (9) Chronic renal failure, stage 3 (moderate): Code(s): N18.30 - Chronic kidney disease, stage 3 unspecified Status: Acute Assessment and Plan: The patient is close to her baseline. Will continue to monitor. Subjective Date/time seen: 03/19/23 15:27 Interval history: Patient feeling better today. She is tolerating a liquid diet. Awaiting for Oncology consultati
[2023-03-19 16:40] LABS: Sodium 129 mmol/L (137-145)
--- NOTE | 2023-03-19 17:56 | PDONCCN ---
HPI - Date of Consult Date/Time: 03/19/23 17:56 Requesting Physician: Manisha Schulz DO Primary Care Provider: Agustin Barahona MD - Consult Narrative Reason for consult: Retroperitoneal mass Narrative: Yue Gaviria is a 78 year old female with history of hypertension, GERD, chronic kidney stage 3 disease and diverticulosis along with history of pancreatic mass status post EUS and FNA done at [facility] came back benign in the past came back into the hospital with complain of abdominal pain for 2 weeks duration along with some loose stools. CT scan of abdomen and pelvis was performed that showed increased size of right upper retroperitoneal mass measuring 5 cm with some central necrosis. She denies any previous history of malignancy. Denies any weight loss. Denies any melena hematochezia. Patient had PET scan done on April 2021 that showed right retroperitoneal mass without associated FDG activity measuring 3.4 x 2.3 cm in size likely benign finding versus lymphoma or gastrointestinal stromal cell tumor. Patient has a history of right sided colectomy done in September 2018 that showed no evidence of malignancy. Surgery was performed due to right-sided diverticulitis. Labs showed mild anemia with hemoglobin of 11.3 and slightly elevated AST of 61. She denies any other complaints. 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 History of bowel resection 2018 - Right hemicolectomy with ileum to transverse colon anastomosis following cecal diverticulitis with perforation and abscess History of cholecystectomy Laparoscopic cholecystectomy History of major abdominal surgery History of total hysterectomy with bilateral salpingo-oophorectomy (BSO) At age 35-40, she had an abdominal hysterectomy with left salpingo-oophorectomy. 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 Hx of tonsillectomy Status post cataract extraction Family History: Family History (Last Reviewed 03/18/23 @ 00:32 by Ellen Maya NP) Father Hypertension Family history of arthritis Family history of lung cancer Family history of colonic diverticulitis Family history of malignant neoplasm Mother Hypertension Family history of arthritis Family history of malignant neoplasm of breast in first degree relative Family history of colonic diverticulitis Sibling Patient's sister is in good health Family history of chronic obstructive pulmonary disease - Social History Social History: Social History (Last Reviewed 03/18/23 @ 00:44 by Temitope Guerrero PA-C) Alcohol Use: Alcohol intake: never Substance Use: Substance use: never Substance use type: does not use Others: Spiritual care concerns: No Smoking Status: Smoking status: Never smoker Second hand tobacco smoke exposure: No Social Determinants of Health: Has the Lack of Transportation Kept You F
[2023-03-19] MEDS: EZETIMIBE 10 MG TABLET PO (20:36)
[2023-03-19] MEDS: VERAPAMIL HCL ER 240 MG TABLET.ER 480 MG PO (20:36)
[2023-03-19] MEDS: MONTELUKAST SODIUM 10 MG TABLET PO (20:36)
[2023-03-19] MEDS: FENOFIBRATE 160 MG TABLET PO (20:36)
[2023-03-19 21:18] VITALS: BP 125/57; PULSE 60; RESP 14; TEMP 36.5; O2SAT 100
[2023-03-20 05:34] VITALS: BP 128/58; PULSE 60; RESP 14; TEMP 36.4; O2SAT 100
[2023-03-20 07:05] LABS: Basophils Absolute Auto 0.1 K/mm3 (0.0-0.1); Basophils Percent Auto 1.5 % (0.2-1.2); Eosinophils Absolute Auto 0.1 K/mm3 (0-0.3); Eosinophils Percent Auto 3.1 % (0-4.4); Hematocrit 33.5 % (37.0-47.0); Hemoglobin 10.9 g/dL (12.0-15.0); Immature Granulocyte Absolute 0.01 K/mm3 (0.00-0.031); Immature Granulocyte Percent A 0.3 % (0-0.5); Lymphocytes Absolute Auto 1.01 K/mm3 (0.9-3.2); Mean Corpuscular HGB Conc 32.5 g/dl (32-36); Mean Corpuscular Hemoglobin 26.1 pg (26-34); Mean Corpuscular Volume 80.3 fl (80-100); Mean Platelet Volume 10.6 fl (7.4-10.4); Monocytes Absolute Auto 0.3 K/mm3 (0.1-0.6); Monocytes Percent Auto 9.2 % (2.6-8.5); Neutrophils Absolute Auto 1.8 K/mm3 (1.3-6.7); Neutrophils Percent Auto 54.9 % (45.5-73.1); Platelet Count Result 191 k/mm3 (150-375); Red Blood Count 4.17 M/mm3 (4.2-5.4); Red Cell Distribution Width 14.7 % (11.5-14.5); White Blood Count 3.3 K/mm3 (4.5-10.0)
[2023-03-20 07:19] LABS: Alanine Aminotransferase 26 U/L (6-35); Albumin Level 3.1 g/dL (3.5-5.1); Alkaline Phosphatase 47 U/L (38-126); Anion Gap 4 mmol/L (8-16); Aspartate Amino Transferase 52 U/L (14-36); Bilirubin,Total 0.4 mg/dL (0.2-1.3); Blood Urea Nitrogen 8 mg/dL (7-17); Calcium 8.1 mg/dL (8.4-10.2); Carbon Dioxide 20 mmol/L (22-30); Chloride 107 mmol/L (98-107); Estimated CRCL calculation 42 ml/min; Estimated Glomerular Filt Rate 54; Glucose 95 mg/dL (65-110); Potassium 3.4 mmol/L (3.4-5.0); Sodium 131 mmol/L (137-145)
[2023-03-20 08:00] VITALS: PULSE 60; RESP 14; O2SAT 100
[2023-03-20] MEDS: PANTOPRAZOLE 40 MG TABLET PO (08:42)
--- NOTE | 2023-03-20 11:18 | PM.PNNEP ---
Progress Note: A&P Assessment and Plan (1) Hyponatremia: Code(s): E87.1 - Hypo-osmolality and hyponatremia Status: Acute Assessment and Plan: slow improvement noted acute sodium normal ~ 2 months ago risk factors for low sodium: prerenal factors HCTZ use pain issues PPI use baseline CKD malignancy?? (retroperitoneal mass) evaluation to date noted: TSH and cortisol okay urine electrolyte non-prerenal SPEP and UPEP pending on normal saline IVFs follow trend of repeat sodium levels (2) Hypokalemia: Code(s): E87.6 - Hypokalemia Status: Acute Assessment and Plan: due to GI loss and low magnesium replete as needed follow trend (3) Hypomagnesemia: Code(s): E83.42 - Hypomagnesemia Status: Acute Assessment and Plan: suspect due to GI loss replete as needed follow trend of repeat levels (4) Retroperitoneal mass: Code(s): R19.00 - Intra-abdominal and pelvic swelling, mass and lump, unspecified site Status: Acute Assessment and Plan: imaging and previous testing noted Oncology recommendations noted (5) Essential (primary) hypertension: Code(s): I10 - Essential (primary) hypertension Status: Chronic Assessment and Plan: fluctuating but pain control playing a role off HCTZ due to #1 follow trend of hemodynamics Will continue to follow. Subjective Date/time seen: 03/20/23 11:18 Interval history: Follow-up for acute hyponatremia. Slow and steady improvement in sodium level noted by trend of labs; no apparent distress noted at this time; overall, feels reasonably well; no issues/events overnight or earlier this AM. Exam Narrative: General: elderly but WD/WN female in NAD Heart: normal S1 and S2; no rub Lungs: clear to auscultation Abdomen: soft, nontender, nondistended, positive bowel sounds Extremities: no cyanosis or clubbing; no edema Skin: warm and intact Objective Data Vital Signs Vital Signs: Vital Signs Temp Pulse Resp BP Pulse Ox 03/20/23 05:34 97.6 F 60 14 128/58 L 100 03/19/23 21:18 97.7 F 60 14 125/57 L 100 03/19/23 14:40 97.9 F 62 14 147/53 H 100 Intake/Output Intake/Output: Intake & Output 08/0103/18/23 03/19/23 03/20/23 23:59 23:59 23:59 23:59 Intake Total 1000 1920 3190 660 Output Total 600 2150 1000 Balance 400 -230 2190 660 Meds/Results Medications: Active Medications Generic Name Dose Route Start Last Admin Trade Name Freq PRN Reason Stop Dose Admin Acetaminophen 650 mg 03/18/23 10:02 03/19/23 10:44 Acetaminophen 325 Mg Tablet PO 650 mg Q6H PRN Administration Mild Pain (1-3) or Fever Hydrocodone Bitart/Acetaminophen 1 tab 03/17/23 23:08 Hydrocodone/Acetaminophen (*Crx) 5-325 Mg Tablet PO BID PRN PAIN RATED 4-6 Cyclobenzaprine HCl 10 mg 03/17/23 23:08 Cyclobenzaprine Hcl 10 Mg Tablet PO TID PRN muscle spasm Ezetimibe 10 mg 03/17/23 23:15 03/19/23 20:36 Ezetimibe 10 Mg Tablet PO 10 mg QHS CLAY Administration Fenofibrate 160 mg 03/17/23 23:15 03/19/23 20:36 Fenofibrate 160 Mg Tablet PO 160 mg QHS CLAY Administration Hydralazine HCl 10 mg 03/18/23 00:49 Hydralazine Hcl 20 Mg/Ml Vial IV PUSH Q8H PRN Blood Pressure - High Sodium Chloride 1,000 mls @ 75 mls/hr 03/18/23 17:55 03/19/23 23:45 Normal Saline Iv IV CONT 75 mls/hr .[id number] CLAY Administration Montelukast Sodium 10 mg 03/17/23 23:10 03/19/23 20:36 Montelukast Sodium 10 Mg Tablet PO 10 mg QHS CLAY Administration Morphine Sulfate 2 mg 03/17/23 19:05 Morphine Sulfate (*Crx) 2 Mg/Ml Inj IV PUSH Q4H PRN Pain Rated 7-10 Ondansetron HCl 4 mg 03/17/23 18:59 Ondansetron Inj 4 Mg/2 Ml Vial IV PUSH Q4H PRN Nausea Pantoprazole Sodium 40 mg 03/17/23 23:15 03/20/23 08:42 Pantoprazole 40 Mg Table
--- NOTE | 2023-03-20 11:18 | P.PNNP_ITS ---
Progress Note: A&P Assessment and Plan (1) Hyponatremia: Code(s): E87.1 - Hypo-osmolality and hyponatremia Status: Acute Assessment and Plan: * slow improvement noted * acute * sodium normal ~ 2 months ago * risk factors for low sodium: * prerenal factors * HCTZ use * pain issues * PPI use * baseline CKD * malignancy?? (retroperitoneal mass) * evaluation to date noted: * TSH and cortisol okay * urine electrolyte non-prerenal * SPEP and UPEP pending * on normal saline IVFs * follow trend of repeat sodium levels (2) Hypokalemia: Code(s): E87.6 - Hypokalemia Status: Acute Assessment and Plan: * due to GI loss and low magnesium * replete as needed * follow trend (3) Hypomagnesemia: Code(s): E83.42 - Hypomagnesemia Status: Acute Assessment and Plan: * suspect due to GI loss * replete as needed * follow trend of repeat levels (4) Retroperitoneal mass: Code(s): R19.00 - Intra-abdominal and pelvic swelling, mass and lump, unspecified site Status: Acute Assessment and Plan: * imaging and previous testing noted * Oncology recommendations noted (5) Essential (primary) hypertension: Code(s): I10 - Essential (primary) hypertension Status: Chronic Assessment and Plan: * fluctuating but pain control playing a role * off HCTZ due to #1 * follow trend of hemodynamics Will continue to follow. Subjective Date/time seen: 03/20/23 11:18 Interval history: Follow-up for acute hyponatremia. Slow and steady improvement in sodium level noted by trend of labs; no apparent distress noted at this time; overall, feels reasonably well; no issues/events overnight or earlier this AM. Exam Narrative: General: elderly but WD/WN female in NAD Heart: normal S1 and S2; no rub Lungs: clear to auscultation Abdomen: soft, nontender, nondistended, positive bowel sounds Extremities: no cyanosis or clubbing; no edema Skin: warm and intact Objective Data Vital Signs Vital Signs: Vital Signs Temp Pulse Resp BP Pulse Ox 03/20/23 05:34 97.6 F 60 14 128/58 L 100 03/19/23 21:18 97.7 F 60 14 125/57 L 100 03/19/23 14:40 97.9 F 62 14 147/53 H 100 Intake/Output Intake/Output: Intake & Output 03/17/23 03/18/23 03/19/23 03/20/23 23:59 23:59 23:59 23:59 Intake Total 1000 1920 3190 660 Output Total 600 2150 1000 Balance 400 -230 2190 660 Meds/Results Medications: Active Medications Generic Name Dose Route Start Last Admin Trade Name Freq PRN Reason Stop Dose Admin Acetaminophen 650 mg 03/18/23 10:02 03/19/23 10:44 Acetaminophen 325 Mg Tablet PO 650 mg Q6H PRN Administration Mild Pain (1-3) or Fever Hydrocodone Bitart/Acetaminophen 1 tab 03/17/23 23:08 Hydrocodone/Acetaminophen (*Crx) 5-325 Mg Tablet PO BID PRN PAIN RATED 4-6 Cyclobenzaprine HCl 10 mg 03/17/23 23:08 Cyclobenzaprine Hcl 10 Mg Tablet PO TID PRN muscle spasm Ezetimibe 10 mg 03/17/23 23:15 03/19/23 20:36 Ezetimibe 10 Mg
--- NOTE | 2023-03-20 11:26 | PM.DS ---
DS: Admitting Diagnosis Discharge Date 03/20/23 Admitting Diagnosis Abdominal pain, retroperitoneal mass, diverticulosis DS: Discharge Diagnosis Discharge Diagnosis (1) Diverticulosis: Code(s): K57.90 - Diverticulosis of intestine, part unspecified, without perforation or abscess without bleeding Status: Acute (2) Retroperitoneal mass: Code(s): R19.00 - Intra-abdominal and pelvic swelling, mass and lump, unspecified site Status: Acute (3) Acute hyponatremia: Code(s): E87.1 - Hypo-osmolality and hyponatremia Status: Acute (4) Hypomagnesemia: Code(s): E83.42 - Hypomagnesemia Status: Acute (5) Hypokalemia: Code(s): E87.6 - Hypokalemia Status: Acute (6) Chronic GERD: Code(s): K21.9 - Gastro-esophageal reflux disease without esophagitis Status: Chronic (7) Hyperlipidemia: Code(s): E78.5 - Hyperlipidemia, unspecified Status: Chronic (8) Essential (primary) hypertension: Code(s): I10 - Essential (primary) hypertension Status: Chronic (9) Chronic renal failure, stage 3 (moderate): Code(s): N18.30 - Chronic kidney disease, stage 3 unspecified Status: Acute DS: Summary Hospital Course Hospital Course: This is a 78-year-old female with a past medical history of severe diverticulosis. Patient had been having some abdominal pain and contact her primary care provider who prescribed Cipro and Flagyl on 03/10/2023. She completed the course of antibiotics. Patient started having increased left lower quadrant pain as well as decreased stool and she presented to the ER. On presentation patient's sodium was 118 and with fluids it did come back up to 120. Nephrology consulted. She is also found to have hypokalemia with a potassium of 3.1 and that was replaced. She also had a BUN and creatinine of 25/1.5. In this corrected itself with fluids. CT abdomen pelvis read as right upper quadrant retroperitoneal mass now measuring 5 cm possibly with interval central necrosis, and evidence of severe diverticulosis without evidence of diverticulitis. Patient had abdominal ultrasound revealing 5 x 3.7 x 4.6 cm right retroperitoneal mass that did not increase in activity on PET scan on 05/02/2021 that is now suspicious for neoplasm such as gastro intestinal stromal tumor. Oncology consulted at this time. Oncology recommended outpatient follow-up with PET scan. Nephrology aided in correction and watch for over-correction of patient's sodium. Day of discharge patient's sodium was 131. Patient's symptoms have resolved on the day of discharge. She is having normal bowel movements. It is recommended that she follow up with Oncology in the office. Nephrology also clear patient for discharge. Her labs and vital signs are stable she is medically for discharge at this time. Time Spent with Patient Time attestation: Total time spent providing and/or coordinating discharge services: Exam Narrative: GENERAL: Comfortable, no acute distress HENMT: moist mucous membranes EYES: EOM intact b/l NECK: no lymphadenopathy RESPIRATORY: clear to auscultation CARDIO: RRR GI: soft, nontender, bowel sounds present SKIN: no rashes EXTREMITIES: no edema, redness or tenderness DS: Data Data Completed and Pending Labs on day of discharge: Labs from last 24 hours 03/20/23 03/19/23 06:45 16:24 WBC 3.3 L RBC 4.17 L Hgb 10.9 L Hct 33.5 L MCV 80.3 MCH 26.1 MCHC 32.5 RDW 14.7 H Plt Count 191 MPV 10.6 H Immature Gran % (Auto) 0.3 Neut % (Auto) 54.9 Lymph % (Auto) 31.0 [place] % (Auto) 9.2 H Eos % (Auto) 3.1 Baso % (Auto) 1.5 H Lymph # (Auto) 1.01 [place] # (Auto) 0.3 Eos # (Auto) 0.1 Baso # (Auto) 0.1 Abs Immat Gran (auto) 0.01 Absolute Neuts (auto) 1.8 Absolute Nucleated RBC 0.0 Nucleated RBC % 0.0 Sodium 131 L 129 L Potassium 3.4 Chloride 107 Carbon Dioxide 20 L Anion Gap 4
[2023-03-20 20:29] LABS: Osmolality, Urine 171 mOsm/kg (50-1200)
[2023-03-21 03:49] LABS: Albumin 3.1 g/dL (3.8-4.8); Alpha 1 Globulin 0.3 g/dL (0.2-0.3); Alpha 2 Globulin 0.8 g/dL (0.5-0.9); Beta 1 Globulin 0.4 g/dL (0.4-0.6); Gamma Globulin 0.9 g/dL (0.8-1.7); Protein, Total 5.9 g/dL (6.1-8.1)
[2023-03-23 23:10] LABS: Creatinine, Random Urine 20 mg/dL (20-275)
== END 2023-03-20 14:49 | disposition home or self-care (01) | DRG 392 ==
LOC: ANHED 18:23 → ANH2MED 20:08
PROVIDERS: Emergency Medicine; Internal Medicine Nephrology; Nurse Practitioner; Admitting Provider Student in an Organized Health Care Education/Training Program; Emergency Provider Physician Assistant; PCP Family Medicine; Visit Provider Internal Medicine Critical Care Medicine
DX: K57.90 Diverticulosis of intestine, part unspecified, without perforation or abscess without bleeding (principal); E87.1 Hypo-osmolality and hyponatremia; K66.9 Disorder of peritoneum, unspecified; E83.42 Hypomagnesemia; E87.6 Hypokalemia; K21.9 Gastro-esophageal reflux disease without esophagitis; E78.5 Hyperlipidemia, unspecified; I12.9 Hypertensive chronic kidney disease with stage 1 through stage 4 chronic kidney disease, or unspecified chronic kidney disease; N18.30 Chronic kidney disease, stage 3 unspecified; E66.9 Obesity, unspecified; Z68.32 Body mass index [BMI] 32.0-32.9, adult; Z86.16 Personal history of COVID-19; Z90.49 Acquired absence of other specified parts of digestive tract; Z90.722 Acquired absence of ovaries, bilateral; Z98.42 Cataract extraction status, left eye; Z98.41 Cataract extraction status, right eye
CPT/HCPCS: 36415; 74177; 76770; 80048; 80053; 81003; 82533; 82570; 83605; 83690; 83735; 83935; 84133; 84155; 84156; 84165; 84166; 84295; 84300; 84443; 84540; 85025; 87045; 87269; 87272; 87427; 87449; 87493; 89055; 96361; 96374; 96375; 99285; A9270; G0378; J3475; J3480; J7030; J7040; J7060; Q9967

== ENCOUNTER 2023-05-21 08:38 | Outpatient (CLI) | payer MEDICARE, SELFPAY ==
--- NOTE | ~2023-05-21 | MM_ITS ---
EXAMINATION: MM screening karen BI w saul HISTORY: Screening mammogram, family history of breast cancer in her mother and sister. TECHNIQUE: Craniocaudal and mediolateral oblique 3-D tomosynthesis images were obtained and synthetic 2-D images were generated. CAD analysis was submitted and interpreted. COMPARISON: 01/17/2022, 12/29/2020, 12/27/2019 BREAST PARENCHYMAL COMPOSITION: The breasts are almost entirely fatty. FINDINGS: Again noted is a chronic focal asymmetry of the upper left breast with biopsy change. No sadler spicious mass, calcification, or architectural distortion are identified in either breast to suggest malignancy. There has been no suspicious interval change. IMPRESSION: 1. No mammographic evidence of malignancy. 2. Recommend routine screening mammography in one year. BI-RADS Category 2: Benign finding(s). Reviewed, dictated and finalized at location A.
--- NOTE | ~2023-05-21 | DEXA_ITS ---
Bone Density Report Name: ADITI BOOTHE Age: 78 Sex: Female Ethnicity: White Date of : 1945 Indication: postmenopausal; screening for osteoporosis; hysterectomy; Referring Provider: ALONDRA MALLOY Study: Bone densitometry was performed. Exam Date: May 21, 2023 Accession number: [id number] Bone Density: Region BMD T-score Z-score Classification AP Spine(L1, L2, L4) 1.191 1.4 3.9 Normal Femoral Neck (Left) 0.774 -0.7 1.5 Normal Total Hip (Left) 0.974 0.3 2.1 Normal Femoral Neck (Right) 0.822 -0.2 1.9 Normal Total Hip (Right) 0.985 0.4 2.2 Normal Total Hip Mean 0.980 0.4 2.2 Normal World Health Organization criteria for BMD impression classify patients as: Normal (T-score at or above -1.0), Osteopenia (T-score between -1.0 and -2.5), or Osteoporosis (T-score at or below -2.5). 10-year Fracture Risk: FRAX not reported because: All T-scores for Spine Total, Hip Total, Femoral Neck at or above -1.0 Previous Exams: Region Exam Age BMD T-score BMD Change BMD Change Date g/cm2 vs Baseline vs Previous AP Spine (L1-L2,L4) 05/21/2023 78 1.191 1.4 0.013 (1.1%)# 0.013 (1.1%)# 12/29/2020 75 1.178 1.3 Total Hip(Left) 05/21/2023 78 0.974 0.3 -0.036 (-3.6%) -0.036 (-3.6%) 12/29/2020 75 1.010 0.6 Total Hip(Right) 05/21/2023 78 0.985 0.4 -0.096 (-8.9%) -0.096 (-8.9%) 12/29/2020 75 1.082 1.1 *Denotes significance at 95% confidence level, LSC for AP Spine = 0.022 g/cm2, LSC for Total Hip = 0.027 g/cm2 # Denotes dissimilar scan types or analysis methods Clinical Information Provided by Patient: Has the following medical conditions: Hysterectomy Patient maximum height was 62 Menopause Age: 54 No regular weight bearing exercise Onset of menses at age 15 Number of children 2 Impression: The patient has normal bone mass. No significant bone loss was observed. Discussion: BONE DENSITY IS ABOVE THE MINIMUM DESIRABLE LEVEL AT ALL SKELETAL SITES TESTED. This patient?s bone mineral density is above the minimum desirable level (T-score -1.0 or better) at all sites measured. The patient should follow a healthful lifestyle (good nutrition with adequate calcium and vitamin D, and appropriate weight-bearing exercise). Follow-Up: Consider repeating this study in 5 years or sooner if there is some new clinical indication. Reported by: TRAMAINE on 05/21/2023 9:17:00 AM.
== END 2023-05-21 08:39 | disposition home or self-care (01) ==
PROVIDERS: PCP Family Medicine; Visit Provider Family Medicine
DX: Z12.31 Encounter for screening mammogram for malignant neoplasm of breast (principal); E78.2 Mixed hyperlipidemia; K21.9 Gastro-esophageal reflux disease without esophagitis; M54.16 Radiculopathy, lumbar region; M54.50 Low back pain, unspecified; Z00.00 Encounter for general adult medical examination without abnormal findings; Z90.49 Acquired absence of other specified parts of digestive tract; K56.609 Unspecified intestinal obstruction, unspecified as to partial versus complete obstruction; M54.6 Pain in thoracic spine; Z78.0 Asymptomatic menopausal state
CPT/HCPCS: 77063; 77067; 77080

== ENCOUNTER 2023-10-29 08:04 | Inpatient (IN) | payer MEDICARE, SELFPAY ==
[2023-10-29] VITALS (21 sets, daily range): BP systolic 96–179; BP diastolic 39–71; PULSE 79–96; RESP 16–28; TEMP 36.4–37.2; O2SAT 88–100; BMI 35.1
--- NOTE | ~2023-10-29 | XR_ITS ---
EXAMINATION: XR abdomen gastric tube insert DATE: 10/29/2023 09:31 INDICATION: Nasogastric tube placement TECHNIQUE: A supine view of the abdomen and lower chest was obtained for evaluation of feeding tube placement. COMPARISON: None. FINDINGS: Nasogastric tube tip in proximal side port in the body of the stomach. No dilated loops of gas-filled bowel in the visualized abdomen. Likely cholecystectomy clips in right upper quadrant. Additional sadler rgical clips at the medial left abdomen. Visualized lung bases are clear. Heart size is normal. IMPRESSION: 1. Nasogastric tube in stomach. Reviewed, dictated and finalized at location L.
[2023-10-29 08:51] LABS: Alanine Aminotransferase 21 U/L (6-35); Albumin Level 3.6 g/dL (3.5-5.1); Alkaline Phosphatase 50 U/L (38-126); Anion Gap 13 mmol/L (8-16); Aspartate Amino Transferase 45 U/L (14-36); Bilirubin,Total 0.4 mg/dL (0.2-1.3); Blood Urea Nitrogen 44 mg/dL (7-17); Calcium 8.6 mg/dL (8.4-10.2); Carbon Dioxide 17 mmol/L (22-30); Chloride 107 mmol/L (98-107); Estimated CRCL calculation 25 ml/min; Estimated Glomerular Filt Rate 29; Glucose 151 mg/dL (65-110); Potassium 4.2 mmol/L (3.4-5.0); Sodium 137 mmol/L (137-145)
[2023-10-29 09:00] LABS: Basophils Absolute Auto 0.1 K/mm3 (0.0-0.1); Basophils Percent Auto 0.6 % (0.2-1.2); Eosinophils Percent Auto 0.1 % (0-4.4); Hematocrit 29.5 % (37.0-47.0); Hemoglobin 8.8 g/dL (12.0-15.0); Immature Granulocyte Absolute 0.09 K/mm3 (0.00-0.031); Immature Granulocyte Percent A 0.8 % (0-0.5); Lymphocytes Absolute Auto 0.87 K/mm3 (0.9-3.2); Lymphocytes Percent Auto 7.6 % (18.3-44.2); Mean Corpuscular HGB Conc 29.8 g/dl (32-36); Mean Corpuscular Hemoglobin 24.5 pg (26-34); Mean Corpuscular Volume 82.2 fl (80-100); Monocytes Absolute Auto 0.4 K/mm3 (0.1-0.6); Monocytes Percent Auto 3.1 % (2.6-8.5); Neutrophils Absolute Auto 10.1 K/mm3 (1.3-6.7); Neutrophils Percent Auto 87.8 % (45.5-73.1); Platelet Count Result 310 k/mm3 (150-375); Red Blood Count 3.59 M/mm3 (4.2-5.4); Red Cell Distribution Width 15.7 % (11.5-14.5); White Blood Count 11.5 K/mm3 (4.5-10.0)
[2023-10-29] MEDS: SODIUM CHLORIDE 0.9% IV 1,000 ML 999 ML IV CONT (09:04)
[2023-10-29] MEDS: PANTOPRAZOLE SODIUM IV 40 MG VIAL 80 MG IV PUSH (09:05)
[2023-10-29 09:06] LABS: INR 1.1; Prothrombin Time 15.2 Seconds (11.1-14.7)
[2023-10-29 09:07] LABS: Partial Thromboplastin Time 26.1 Seconds (22.3-36.8)
[2023-10-29 09:21] LABS: Hypochromasia 1+; Platelet Estimate Adequate (Adequate); Schistocytes None Seen
--- NOTE | 2023-10-29 09:26 | ED.GENADULT ---
HPI - General Adult General Chief complaint: GI Bleed Stated complaint: BLOOD IN STOOL Time Seen by Provider: 10/29/23 08:35 History of Present Illness HPI narrative: The patient is a 78-year-old female who presents ER with passage of blood in her stool and her emesis. She 1st began noticing it yesterday afternoon. It has increased in rate and volume. She started vomiting blood when she arrived here at the hospital. Patient initially hypotensive. Patient reports she had an EGD 10/19/2023 at [facility]. Previously she had had 3 polyps biopsied from her stomach and pancreas. the biopsies were benign. It was suggested that she have a polypectomy of the stomach which occurred at [facility]. After the removal of the polyp there is some bleeding and multiple stitches placed in her stomach and had been doing well. Reports she has been taking Tylenol for pain. No NSAID use. She has not had any syncope. She had see Dr. Melgar. Patient does not take any blood thinners. She is not on any anti-platelet medications. Related Data Home Medications Medication Instructions Recorded Confirmed montelukast 10 mg tablet 10 mg PO QHS 03/17/23 10/29/23 Allergies Allergy/AdvReac Type Severity Reaction Status Date / Time lisinopril Allergy Unknown swollen Verified 10/29/23 08:31 tongue naproxen Allergy Unknown Nose bleeds Verified 10/29/23 08:31 [id number] Reductase Allergy Unknown Stomach Verified 10/29/23 08:31 Inhibitor pain [Tfifkmx-Pbo-Ecp Reductase Inhibitor] Sulfa (Sulfonamide Allergy Unknown Rash Verified 10/29/23 08:31 Antibiotics) Review of Systems Review of Systems: All systems reviewed & are unremarkable except as noted in HPI and below Constitutional: Constitutional: Reports no additional constitutional complaints ENT: Reports system reviewed and no additional complaints, except as documented Cardiovascular: Cardiovascular: Reports no additional cardiovascular complaints Respiratory: Respiratory: Reports no additional respiratory complaints Gastrointestinal: Gastrointestinal: Reports abdominal pain, Reports nausea and Reports vomiting Comments: Blood in stool and emesis. Genitourinary: Genitourinary: Reports no additional female genitourinary complaints Musculoskeletal: Musculoskeletal: Reports no additional musculoskeletal complaints Neurologic: Reports system reviewed and no additional complaints, except as documented [facility] Past Medical History Medical History (Updated 10/29/23 @ 17:29 by Girma Wakefield MD) Bilateral hip pain Chronic GERD Chronic renal failure, stage 3 (moderate) COVID-19 Diverticulosis Essential (primary) hypertension Exposure to COVID-19 virus Exposure to COVID-19 virus Gastric polyp Hematemesis 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 History of bowel resection 2018 - Right hemicolectomy with ileum to transverse colon anastomosis following cecal diverticulitis with perforation and abscess History of cholecystectomy Laparoscopic cholecystectomy History of major abdominal surgery History of total hysterectomy with bilateral salpingo-oophorectomy (BSO) At age 35-40, she had an abdominal hysterectomy with left salpingo-oophorectomy. 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 Hx of tonsillectomy Status post cataract extraction Family History Family History Father Hypertensi
--- NOTE | 2023-10-29 09:33 | PC.NURSE ---
notified Aliya of anti body
[2023-10-29] MEDS: PANTOPRAZOLE SODIUM IV 80 MG in SODIUM CHLORIDE 0.9% IV 500 ML 50 MG IV CONT (09:59)
--- NOTE | 2023-10-29 11:06 | ADMGEN ---
This patient, Yue Gaviria, was admitted to Intensive Care Unit-9 @ 1106 Patient/family oriented to hospital policies and general routines including ID bracelet, bed and alarms, visiting hours, pain management, procedures, bathroom and other care routines, personal items, smoking policy, room service/diet, and visiting hours. Information on how to activate the Rapid Response Team has been discussed. Patient/Family are encouraged to report perceived risks to care and to ask questions if they do not understand what they are told or what they should do.
[2023-10-29 11:08] LABS: Hematocrit 26.3 % (37.0-47.0)
--- NOTE | 2023-10-29 11:17 | PM.IMHP ---
H&P: HPI History of Present Illness Date/Time: 10/29/23 11:17 Chief Complaint: Blood in stool Narrative: 78yo female with HTN, HLD and recent gastric polyp removal here for melena and hematochezia. Patient with known gastric and pancreatic lesions. Sometime in mid September, patient underwent EGD with biopsy of a pancreatic and gastric masses. The pathology was benign but there were concerning findings on the gastric lesion and was recommended that she have this removed. On October 18, patient underwent EGD and resection of the gastric lesion. She states that it bled more than expected requiring multiple extra sutures to be placed. She does have a history of gastric ulcers. No history requiring blood transfusions. She started herself on a liquid diet post-procedure. Over the past week, she has been feeling malaise otherwise no other complaints. She started solid foods about 4-5 days ago. She was mildly constipated but otherwise no nausea, abdominal pain, vomiting. She does not take NSAIDs. She is not on anticoagulation. On the day before admission, patient developed melanotic stools. No headaches, vision changes, hearing changes, odynophagia, dysphagia, chest pain, palpitations, shortness of breath, cough, dysuria or hematuria. She does have Nexium that she uses as needed on average about once a month but has not use this medication recently. Her symptoms persisted and she presented to the emergency room for evaluation. In the emergency room she developed nausea and vomiting with hematemesis. Emergency room, blood pressure is 96/39 and SpO2 was 88% on room air. Hemoglobin was 8.8 through most recent hemoglobin of 10.9 in March. BUN 44 and creatinine 1.7 which is well above her baseline. She was started on Protonix drip. She was given IV fluids as well with improvement in her blood pressure. She was admitted for further care. GI has been consulted through ED. 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 with cytology appearing benign Postmenopausal Prediabetes Screening for breast cancer Screening for colon cancer Small bowel obstruction Surgical History Surgical History H/O tubal ligation in her 30's History of appendectomy During her hysterectomy. History of bowel resection 2018 - Right hemicolectomy with ileum to transverse colon anastomosis following cecal diverticulitis with perforation and abscess History of cholecystectomy Laparoscopic cholecystectomy History of major abdominal surgery History of total hysterectomy with bilateral salpingo-oophorectomy (BSO) At age 35-40, she had an abdominal hysterectomy with left salpingo-oophorectomy. 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 Hx of tonsillectomy Status post cataract extraction Family History Family History Father Hypertension Family history of arthritis Family history of lung cancer Family history of colonic diverticulitis Family history of malignant neoplasm Mother Hypertension Family history of arthritis Family history of malignant neoplasm of breast in first degree relative Family history of colonic diverticulitis Sibling Patient's sister is in good health Family history of chronic obstructive pulmonary disease Social History
[2023-10-29] MEDS: SODIUM CHLORIDE 0.9% IV 1,000 ML 125 ML IV CONT ×2 (11:33→20:42)
[2023-10-29 15:54] LABS: Hematocrit 24.8 % (37.0-47.0); Hemoglobin 7.6 g/dL (12.0-15.0)
--- NOTE | 2023-10-29 17:25 | WPDGICN ---
Assessment and Plan Assessment and plan (1) Acute upper GI bleeding: Code(s): K92.2 - Gastrointestinal hemorrhage, unspecified Status: Acute Assessment and Plan: most likely source of bleeding is from recent EMR of gastric polyp performed at another hospital egd in am to assess source of bleeding iv protonix patient also says that normally tends to have easy bleeding, she remembers that had significant bleeding after tonsil surgery and required blood transfusion (2) SATYA (acute kidney injury): Code(s): N17.9 - Acute kidney failure, unspecified Status: Acute Assessment and Plan: monitor and treat (3) Hematemesis: Code(s): K92.0 - Hematemesis Status: Acute Assessment and Plan: egd (4) Gastric polyp: Code(s): K31.7 - Polyp of stomach and duodenum Status: Acute Assessment and Plan: removed recently (5) Retroperitoneal mass: Code(s): R19.00 - Intra-abdominal and pelvic swelling, mass and lump, unspecified site Status: Acute Assessment and Plan: EUS was done and benign per records GI Consult Note Consult date/time: 10/29/23 17:25 Reason for consult: hematemesis post EMR gastric polyp HPI: Yue Gaviria is a 78 year old female with h/o HTN who had EUS pancreas 07/2023 because benign retroperitoneal cystic lesion but also found to have gastric polyp, then her GI doctor at [facility] repeat EGD 10/19/2023 to remove gastric polyp using EMR after lifting solution, he applied 6 clips to prevent bleeding and soft coag to control post polypectomy bleeding. She has been doing ok until new onset of coffee ground emesis with melena. Hgb 8.8 then down 7.6 (baseline 10). NGT showed coffee ground material. NGT was placed. She was admitted to icu. Review of Systems Constitutional: Constitutional: Denies chills Eyes: Eyes: Denies blurry vision ENT: Reports Normal hearing present Cardiovascular: Cardiovascular: Denies chest pain Respiratory: Respiratory: Denies cough Gastrointestinal: Gastrointestinal: Reports melena and Reports hematemesis Genitourinary: Genitourinary: Denies urinary urgency Musculoskeletal: Musculoskeletal: Denies neck pain Integumentary/Breasts: Skin/Breast: Denies rash Neurologic: Denies Abnormal speech present Psychiatric: Psychiatric: Denies behavioral changes [facility] Past Medical History Medical History (Updated 10/29/23 @ 17:29 by Girma Wakefield MD) Bilateral hip pain Chronic GERD Chronic renal failure, stage 3 (moderate) COVID-19 Diverticulosis Essential (primary) hypertension Exposure to COVID-19 virus Exposure to COVID-19 virus Gastric polyp Hematemesis 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 History of bowel resection 2018 - Right hemicolectomy with ileum to transverse colon anastomosis following cecal diverticulitis with perforation and abscess History of cholecystectomy Laparoscopic cholecystectomy History of major abdominal surgery History of total hysterectomy with bilateral salpingo-oophorectomy (BSO) At age 35-40, she had an abdominal hysterectomy with left salpingo-oophorectomy. 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 Hx of tonsillectomy Status post cataract extraction Family History Family History Father Hypertension Family history of arthritis Family history of lung cancer Family history of
[2023-10-29] MEDS: PANTOPRAZOLE SODIUM IV 40 MG VIAL IV PUSH (20:43)
[2023-10-29 22:30] LABS: Hematocrit 29.6 % (37.0-47.0); Hemoglobin 8.8 g/dL (12.0-15.0)
[2023-10-30] VITALS (20 sets, daily range): BP systolic 145–192; BP diastolic 53–98; PULSE 77–91; RESP 13–27; TEMP 36.4–37.2; O2SAT 96–100
[2023-10-30 06:57] LABS: Basophils Absolute Auto 0.1 K/mm3 (0.0-0.1); Basophils Percent Auto 0.9 % (0.2-1.2); Eosinophils Absolute Auto 0.1 K/mm3 (0-0.3); Eosinophils Percent Auto 0.9 % (0-4.4); Hematocrit 27.7 % (37.0-47.0); Hemoglobin 8.3 g/dL (12.0-15.0); Immature Granulocyte Absolute 0.06 K/mm3 (0.00-0.031); Immature Granulocyte Percent A 0.8 % (0-0.5); Lymphocytes Absolute Auto 1.72 K/mm3 (0.9-3.2); Mean Corpuscular Hemoglobin 25.7 pg (26-34); Mean Corpuscular Volume 85.8 fl (80-100); Mean Platelet Volume 11.4 fl (7.4-10.4); Monocytes Absolute Auto 0.6 K/mm3 (0.1-0.6); Monocytes Percent Auto 7.6 % (2.6-8.5); Neutrophils Percent Auto 66.8 % (45.5-73.1); Platelet Count Result 196 k/mm3 (150-375); Red Blood Count 3.23 M/mm3 (4.2-5.4); Red Cell Distribution Width 15.9 % (11.5-14.5); White Blood Count 7.5 K/mm3 (4.5-10.0)
[2023-10-30 07:18] LABS: Alanine Aminotransferase 18 U/L (6-35); Albumin Level 3.2 g/dL (3.5-5.1); Alkaline Phosphatase 48 U/L (38-126); Anion Gap 4 mmol/L (8-16); Aspartate Amino Transferase 40 U/L (14-36); Bilirubin,Total 0.4 mg/dL (0.2-1.3); Blood Urea Nitrogen 41 mg/dL (7-17); Calcium 8.6 mg/dL (8.4-10.2); Carbon Dioxide 20 mmol/L (22-30); Chloride 115 mmol/L (98-107); Estimated CRCL calculation 36 ml/min; Estimated Glomerular Filt Rate 44; Glucose 109 mg/dL (65-110); Sodium 139 mmol/L (137-145)
[2023-10-30] MEDS: PANTOPRAZOLE SODIUM IV 40 MG VIAL IV PUSH ×2 (09:21→20:31)
[2023-10-30] MEDS: MORPHINE SULFATE (*CRX) 2 MG/ML INJ 1 MG IV PUSH ×2 (10:57→15:24)
--- NOTE | 2023-10-30 12:56 | PC.NURSE ---
Patient transfer to GI lab via wheelchair.
[2023-10-30] MEDS: LACTATED RINGERS 1,000 ML 150 ML IV CONT (13:09)
--- NOTE | 2023-10-30 13:21 | WPDANESEPPF ---
Anes - Initial Pre Proc Eval Procedure: Operation Date: 10/30/23 16:30 Proposed Procedures p Esophagogastroduodenoscopy - Girma Wakefield MD Date/Time: 10/30/23 13:21 Surgeon: Rashid Coelho MD Pre Op Diagnosis: Upper GI Bleed Patient Data Age: 78 Gender: F Height: 1.57 m Weight: 79 kg Last Vital Signs Temp 98.4 F 10/30/23 13:10 Pulse 85 10/30/23 13:10 Resp 18 10/30/23 13:10 BP 192/75 H 10/30/23 13:10 Pulse Ox 100 10/30/23 13:10 O2 Del Method Room Air 10/30/23 13:10 Allergies Allergy/AdvReac Type Severity Reaction Status Date / Time lisinopril Allergy Unknown swollen Verified 10/30/23 13:09 tongue naproxen Allergy Unknown Nose bleeds Verified 10/30/23 13:09 Fcedicc-HKM-HjM Reductase Allergy Unknown Stomach Verified 10/30/23 13:09 Inhibitor pain [Esprlix-Wba-Gfi Reductase Inhibitor] Sulfa (Sulfonamide Allergy Unknown Rash Verified 10/30/23 13:09 Antibiotics) Home Medications Medication Instructions Recorded Confirmed Type montelukast 10 mg tablet 10 mg PO QHS 03/17/23 10/29/23 History telmisartan 80 1 tablet PO QHS #30 tabs 07/16/23 10/29/23 Rx mg-hydrochlorothiazide 12.5 mg tablet (Micardis HCT) omeprazole 40 mg capsule,delayed 40 mg PO QHS #90 caps 07/23/23 10/29/23 Rx release ezetimibe 10 mg tablet See Rx Instructions .Route 08/12/23 10/29/23 Rx .COMPLEX #100 tabs verapamil 240 mg 24 hr See Rx Instructions .Route 09/28/23 10/29/23 Rx capsule,extended release .COMPLEX #200 caps fenofibrate 160 mg tablet See Rx Instructions .Route 10/01/23 10/29/23 Rx .COMPLEX #90 tabs cyclobenzaprine 10 mg tablet 10 mg PO TID PRN muscle spasm #90 10/26/23 10/29/23 Rx tabs hydrocodone 5 mg-acetaminophen 325 1 tablet PO BID PRN pain #20 tabs 10/26/23 10/29/23 Rx mg tablet Laboratory Tests 10/29/23 10/29/23 10/29/23 08:33 08:33 15:49 WBC RBC Hgb 7.6 L g/dL (12.0-15.0) Hct 24.8 L % (37.0-47.0) MCV MCH MCHC RDW Plt Count MPV Immature Gran % (Auto) Neut % (Auto) Lymph % (Auto) [place] % (Auto) Eos % (Auto) Baso % (Auto) Lymph # (Auto) [place] # (Auto) Eos # (Auto) Baso # (Auto) Abs Immat Gran (auto) Absolute Neuts (auto) Absolute Nucleated RBC Nucleated RBC % Sodium Potassium Chloride Carbon Dioxide Anion Gap BUN Creatinine Estim Creat Clear Calc Estimated GFR Glucose Calcium Total Bilirubin AST ALT Alkaline Phosphatase Total Protein Albumin TSH (Reflex) Blood Type AB Negative Antibody Screen Positive Antibody Identification Anti-C Anti-D Antigen Identification TNP JOSH, Poly Interpret Neg Enhanced Crossmatch See Detail 10/29/23 10/30/23 22:19 06:28 WBC 7.5 K/mm3 (4.5-10.0) RBC 3.23 L M/mm3 (4.2-5.4) Hgb 8.8 L g/dL 8.3 L g/dL (12.0-15.0) (12.0-15.0) Hct 29.6 L % 27.7 L % (37.0-47.0) (37.0-47.0) MCV 85.8 fl (80-100) MCH 25.7 L pg (26-34) MCHC 30.0 L g/dl (32-36) RDW 15.9 H % (11.5-14.5) Plt Count 196 k/mm3 (150-375) MPV 11.4 H fl (7.4-10.4) Immature Gran % (Auto) 0.8 H % (0-0.5) Neut % (Auto) 66.8 % (45.5-73.1) Lymph % (Auto) 23.0 % (18.3-44.2) [place] % (Auto) 7.6 % (2.6-8.5) Eos % (Auto) 0.9 % (0-4.4) Baso % (Auto) 0.9 % (0.2-1.2) Lymph # (Auto) 1.72 K/mm3 (0.9-3.2) [place] # (Auto)
[2023-10-30] MEDS: EPINEPHrine INJ 1 MG/10 ML SYRINGE 0.6 MG XX (14:25)
--- NOTE | 2023-10-30 16:12 | PM.IMPN ---
Progress Note: A&P Assessment and Plan (1) Acute upper GI bleeding: Code(s): K92.2 - Gastrointestinal hemorrhage, unspecified Status: Acute Assessment and Plan: Patient presents with acute upper GI bleed. She did undergo a recent gastric polyp resection. Protonix started. GI consulted and apprecaite their input EGD showing post-polypectomy ulcers with gastric clips in place but with oozing felt to be the source of her bleeding. The area was injected with epinephrine and 2 additional cips placed for hemostasis Continue Protonix Monitor HH for stability. (2) Anemia: Code(s): D64.9 - Anemia, unspecified Status: Acute Assessment and Plan: Hemoglobin last admission in March was around 11. Patient with acute blood loss anemia. Hemoglobin here was 8.8. She trended to 7.6 and was transfused 1U PRBC yesterday Hgb stable in the 8 range now. Continue to follow for stability. Transfuse as needed. (3) SATYA (acute kidney injury): Code(s): N17.9 - Acute kidney failure, unspecified Status: Acute Assessment and Plan: Creatinine 1.7 on admission. Baseline creatinine runs 1-1.4 mostly. Acute kidney injury probably related to hypotension, GI bleed and possibly medications. She was given fluid bolus and blood pressure has improved. Cr better at 1.2. Continue to monitor fluid status, urine output, renal function and electrolytes. (4) Chronic renal failure, stage 3 (moderate): Code(s): N18.30 - Chronic kidney disease, stage 3 unspecified Status: Acute Assessment and Plan: Baseline creatinine running 1-1.4. Continue to monitor. (5) Essential (primary) hypertension: Code(s): I10 - Essential (primary) hypertension Status: Chronic Assessment and Plan: Blood pressure was soft on admission but improved with IV fluids. BP more elevated now. Stop IV fluids. Review her home medications and start appropriate medications. Plan DVT prophylaxis -SCDs Code status -full Subjective Date/time seen: 10/30/23 16:12 Interval history: 78yo female with HTN, HLD and recent gastric polyp removal here for melena and hematochezia.?? Slept okay last night. She is back from EGD now. She toelrated the procedure well. She has taken some liquids and tolerated this as well. No CP or SOB. Upper back is chronic and comes and goes. Better with pain medications. Exam Narrative: AF 97.8 160/75 81 24 100% ra Gen - NARD Chest - CTA bilaterally. CV - RRR S1/S2. Tele showing no significant dysrhythmias Abd - soft, NT/ND, +BS Ext - no pedal edema. Psych - normal mood and affect. Skin - warm and dry. Objective Data Vital Signs Vital Signs: Vital Signs - 24 hr 10/29/23 16:51 10/29/23 17:29 10/29/23 18:37 Temperature 97.7 F Pulse Rate 83 87 87 Respiratory Rate 28 H Blood Pressure 126/47 L Pulse Oximetry 100 Oxygen Delivery 10/29/23 18:56 10/29/23 19:07 10/29/23 19:56 Temperature 98.2 F 98.2 F 98.8 F Pulse Rate 81 79 85 Respiratory Rate 20 20 22 H Blood Pressure 179/69 H 132/56 L 155/62 H Pulse Oximetry 100 100 100 Oxygen Delivery 10/29/23 20:00 10/29/23 20:00 10/29/23 20:56 Temperature 98.4 F Pulse Rate 85 82 85 Respiratory Rate 22 H 22 H Blood Pressure 158/60 H Pulse Oximetry 100 99 Oxygen Delivery Room Air 10/29/23 21:56 10/29/23 22:58 10/29/23 22:00 Temperature 97.5 F L 97.8 F 97.8 F Pulse Rate 85 83 83 Respiratory Rate 21 H 23 H 23 H Blood Pressure 149/51 H 150/63 H 150/63 H Pulse Oximetry 100 100 100 Oxygen Delivery 10/29/23 22:00 10/29/23 23:57 10/29/23 23:59 Temperature 98 F Pulse Rate 86 83 83 Respiratory Rate 23 H 22 H Blood Pressure 153/57 H Pulse Oximetry 100 100 Oxygen Delivery Room Air 10/30/23 00:00 10/30/23 02:00 10/30/23 04:00 Temperature Pulse Rate 81 85 85 Respiratory Rate 22 H Blood Pressure Pulse Oximetry 100 Oxyg
--- NOTE | 2023-10-30 16:56 | PC.NURSE ---
This patient, Yue Gaviria, was transferred to [facility] via bed without issues on 10/30/23 at 1641. Personal belongings sent with patient. Report given to Aliya Navarrete. Appropriate documentation sent with patient.
[2023-10-30 17:51] LABS: Hematocrit 26.1 % (37.0-47.0); Hemoglobin 8.2 g/dL (12.0-15.0)
[2023-10-30] MEDS: TELMISARTAN 40 MG TABLET 80 MG PO (20:30)
[2023-10-30] MEDS: MONTELUKAST SODIUM 10 MG TABLET PO (20:31)
[2023-10-30] MEDS: hydroCHLOROthiazide 12.5 MG CAPSULE PO (20:31)
[2023-10-31] VITALS (20 sets, daily range): BP systolic 98–177; BP diastolic 49–71; PULSE 56–96; RESP 18–20; TEMP 36.2–36.8; O2SAT 97–100
[2023-10-31 05:13] LABS: Basophils Percent Auto 0.7 % (0.2-1.2); Eosinophils Absolute Auto 0.1 K/mm3 (0-0.3); Eosinophils Percent Auto 1.8 % (0-4.4); Hemoglobin 7.8 g/dL (12.0-15.0); Immature Granulocyte Absolute 0.03 K/mm3 (0.00-0.031); Immature Granulocyte Percent A 0.5 % (0-0.5); Lymphocytes Absolute Auto 1.03 K/mm3 (0.9-3.2); Lymphocytes Percent Auto 18.1 % (18.3-44.2); Mean Corpuscular HGB Conc 31.2 g/dl (32-36); Mean Corpuscular Hemoglobin 25.9 pg (26-34); Mean Corpuscular Volume 83.1 fl (80-100); Mean Platelet Volume 10.7 fl (7.4-10.4); Monocytes Absolute Auto 0.4 K/mm3 (0.1-0.6); Monocytes Percent Auto 6.9 % (2.6-8.5); Neutrophils Absolute Auto 4.1 K/mm3 (1.3-6.7); Platelet Count Result 152 k/mm3 (150-375); Red Blood Count 3.01 M/mm3 (4.2-5.4); Red Cell Distribution Width 15.9 % (11.5-14.5); White Blood Count 5.7 K/mm3 (4.5-10.0)
[2023-10-31 05:34] LABS: Albumin Level 3.2 g/dL (3.5-5.1); Anion Gap 6 mmol/L (8-16); Blood Urea Nitrogen 27 mg/dL (7-17); Calcium 8.8 mg/dL (8.4-10.2); Carbon Dioxide 21 mmol/L (22-30); Chloride 110 mmol/L (98-107); Estimated CRCL calculation 36 ml/min; Estimated Glomerular Filt Rate 44; Glucose 106 mg/dL (65-110); Magnesium 1.8 mg/dL (1.6-2.3); Phosphorus 3.1 mg/dL (2.5-4.5); Potassium 3.2 mmol/L (3.4-5.0); Sodium 137 mmol/L (137-145)
[2023-10-31] MEDS: POTASSIUM CHLORIDE 20 MEQ ER TABLET 40 MEQ PO (09:27)
[2023-10-31] MEDS: PANTOPRAZOLE SODIUM IV 40 MG VIAL IV PUSH ×2 (09:28→21:23)
[2023-10-31] MEDS: VERAPAMIL HCL ER 240 MG TABLET.ER 480 MG PO (09:28)
[2023-10-31] MEDS: FENOFIBRATE 160 MG TABLET BY MOUTH (09:29)
[2023-10-31] MEDS: EZETIMIBE 10 MG TABLET BY MOUTH (09:29)
--- NOTE | 2023-10-31 13:58 | PCPTNOTE ---
attempted PT evaluation, per RN she does not think PT will be good currently because of her low MAP, will attempt again at a later time
--- NOTE | 2023-10-31 15:24 | PC.NURSE ---
Dr. Coelho given report on the pts B/P will review the current POC at this time
--- NOTE | 2023-10-31 15:27 | PM.IMPN ---
Progress Note: A&P Assessment and Plan (1) Acute upper GI bleeding: Code(s): K92.2 - Gastrointestinal hemorrhage, unspecified Status: Acute Assessment and Plan: Patient presents with acute upper GI bleed. She did undergo a recent gastric polyp resection. Protonix started. GI consulted and apprecaite their input EGD 10/30 showing post-polypectomy ulcers with gastric clips in place but with oozing felt to be the source of her bleeding. The area was injected with epinephrine and 2 additional clips placed for hemostasis Continue Protonix Hgb dropped to 7.8. Monitor HH for stability. (2) Anemia: Code(s): D64.9 - Anemia, unspecified Status: Acute Assessment and Plan: Hemoglobin last admission in March was around 11. Patient with acute blood loss anemia. Hemoglobin here was 8.8. She trended to 7.6 and was transfused 1U PRBC 10/28 Hgb climbed to 8 range but 7.8 now. BP soft probably related to her BP mediciations. Repeat HH Continue to follow for stability. Transfuse as needed. (3) SATYA (acute kidney injury): Code(s): N17.9 - Acute kidney failure, unspecified Status: Acute Assessment and Plan: Creatinine 1.7 on admission. Baseline creatinine runs 1-1.4 mostly. Acute kidney injury probably related to hypotension, GI bleed and possibly medications. She was given fluid bolus and blood pressure has improved. Cr better at 1.2 and stable. IV fluids off Continue to monitor fluid status, urine output, renal function and electrolytes. (4) Chronic renal failure, stage 3 (moderate): Code(s): N18.30 - Chronic kidney disease, stage 3 unspecified Status: Acute Assessment and Plan: Baseline creatinine running 1-1.4. Continue to monitor. (5) Essential (primary) hypertension: Code(s): I10 - Essential (primary) hypertension Status: Chronic Assessment and Plan: Blood pressure was soft on admission but improved with IV fluids. BP was much more elevated so home meds resumed BP elevated this morning but dropped to 98/53 and she feels weak. Suspect related to medications but check stat HH. Hold Verapamil and will verify home medications and doses. Plan DVT prophylaxis -SCDs Code status -full Subjective Date/time seen: 10/31/23 15:27 Interval history: 78yo female with HTN, HLD and recent gastric polyp removal here for melena and hematochezia.?? No problems over night. No CP or SOB. Still having black stool. Up walking to the bathroom. Exam Narrative: AF 97.1 98/53 64 20 100% ra Gen - NARD Chest - CTA bilaterally. CV - RRR S1/S2. Tele showing no significant dysrhythmias Abd - soft, NT/ND, +BS Ext - no pedal edema. Psych - normal mood and affect. Skin - warm and dry. Objective Data Vital Signs Vital Signs: Vital Signs - 24 hr 10/30/23 16:00 10/30/23 16:00 10/30/23 16:05 Temperature Pulse Rate 82 Respiratory Rate Blood Pressure Pulse Oximetry 100 100 Oxygen Delivery Room Air Room Air 10/30/23 16:53 10/30/23 18:00 10/30/23 20:33 Temperature 97.8 F 98.3 F Pulse Rate 88 77 89 Respiratory Rate 20 Blood Pressure 174/60 H 173/53 H Pulse Oximetry 100 96 Oxygen Delivery 10/30/23 23:28 10/30/23 20:00 10/30/23 20:00 Temperature 98.9 F Pulse Rate 89 83 Respiratory Rate 20 Blood Pressure 166/98 H Pulse Oximetry 96 Oxygen Delivery Room Air 10/30/23 22:00 10/31/23 00:00 10/31/23 00:00 Temperature Pulse Rate 80 80 Respiratory Rate Blood Pressure Pulse Oximetry Oxygen Delivery Room Air 10/31/23 02:00 10/31/23 05:17 10/31/23 04:00 Temperature 97.5 F L Pulse Rate 82 79 85 Respiratory Rate 20 Blood Pressure 133/50 L Pulse Oximetry 98 Oxygen Delivery 10/31/23 04:00 10/31/23 06:00 10/31/23 07:42 Temperature 97.6 F Pulse Rate 70 75 Respiratory Rate 18 Blood Pressure 177/71 H Pulse Oximetry 97
[2023-10-31 16:08] LABS: Hematocrit 26.7 % (37.0-47.0); Hemoglobin 8.3 g/dL (12.0-15.0)
[2023-10-31] MEDS: hydroCHLOROthiazide 12.5 MG CAPSULE PO (21:23)
[2023-10-31] MEDS: MONTELUKAST SODIUM 10 MG TABLET PO (21:23)
[2023-10-31] MEDS: TELMISARTAN 40 MG TABLET 80 MG PO (21:23)
[2023-11-01] VITALS (8 sets, daily range): BP systolic 122–152; BP diastolic 44–92; PULSE 61–86; RESP 18–20; TEMP 36.5–37; O2SAT 96–100
[2023-11-01 05:14] LABS: Hematocrit 24.9 % (37.0-47.0); Hemoglobin 7.9 g/dL (12.0-15.0); Mean Corpuscular HGB Conc 31.7 g/dl (32-36); Mean Corpuscular Hemoglobin 26.2 pg (26-34); Mean Corpuscular Volume 82.5 fl (80-100); Mean Platelet Volume 11.3 fl (7.4-10.4); Platelet Count Result 177 k/mm3 (150-375); Red Blood Count 3.02 M/mm3 (4.2-5.4); Red Cell Distribution Width 15.8 % (11.5-14.5); White Blood Count 5.4 K/mm3 (4.5-10.0)
[2023-11-01 05:36] LABS: Anion Gap 5 mmol/L (8-16); Blood Urea Nitrogen 21 mg/dL (7-17); Calcium 8.6 mg/dL (8.4-10.2); Carbon Dioxide 23 mmol/L (22-30); Chloride 108 mmol/L (98-107); Estimated CRCL calculation 36 ml/min; Estimated Glomerular Filt Rate 44; Glucose 108 mg/dL (65-110); Potassium 3.3 mmol/L (3.4-5.0); Sodium 136 mmol/L (137-145)
[2023-11-01] MEDS: FENOFIBRATE 160 MG TABLET BY MOUTH (08:04)
[2023-11-01] MEDS: EZETIMIBE 10 MG TABLET BY MOUTH (08:04)
[2023-11-01] MEDS: PANTOPRAZOLE SODIUM IV 40 MG VIAL IV PUSH (08:04)
[2023-11-01] MEDS: POLYSACCHARIDE IRON COMPLEX 150 MG CAPSULE PO (08:10)
[2023-11-01] MEDS: POTASSIUM CHLORIDE 20 MEQ ER TABLET 40 MEQ PO (08:10)
--- NOTE | 2023-11-01 12:59 | PM.DS ---
DS: Admitting Diagnosis Discharge Date 11/01/23 Admitting Diagnosis Melena DS: Discharge Diagnosis Discharge Diagnosis (1) Acute upper GI bleeding: Code(s): K92.2 - Gastrointestinal hemorrhage, unspecified Status: Acute (2) Anemia: Code(s): D64.9 - Anemia, unspecified Status: Acute (3) SATYA (acute kidney injury): Code(s): N17.9 - Acute kidney failure, unspecified Status: Acute (4) Chronic renal failure, stage 3 (moderate): Code(s): N18.30 - Chronic kidney disease, stage 3 unspecified Status: Acute (5) Essential (primary) hypertension: Code(s): I10 - Essential (primary) hypertension Status: Chronic DS: Summary Hospital Course Reason for hospitalization: 78yo female with HTN, HLD and recent gastric polyp removal here for melena and hematochezia.??Please see H&P for details. Hospital Course: Patient presents with acute upper GI bleed.? She did undergo a recent gastric polyp resection.? Protonix started. GI consulted and appreciate their input. EGD 10/30 showing post-polypectomy ulcers with gastric clips in place but with oozing felt to be the source of her bleeding.?The area was injected with epinephrine and 2 additional clips placed for hemostasis. Hemoglobin last admission in March was around 11.?Hemoglobin here was 8.8. She trended to 7.6 and was transfused 1U PRBC 10/28. Patient with acute blood loss anemia.?Hgb climbed to 7-8 range and stable. Creatinine 1.7 on admission.? Baseline creatinine runs 1-1.4 mostly.?Acute kidney injury probably related to hypotension, GI bleed and possibly medications.?She was given fluid bolus and blood pressure has improved.?Cr better at 1.2 and stable. BP improved and home medications resumed but BP was soft at time. Repeat Hgb stable. Verapamil held and BP improved. She was up ambulating in the room. She overall did well and was able to be discharged home on 11/01/23 Status at Discharge Cognitive/behavioral status at discharge: stable Time Spent with Patient Time attestation: Total time spent providing and/or coordinating discharge services: 36 minutes Time spent: Greater than 30 minutes Exam Narrative: AF 98.6 152/62 78 20 100% ra Gen - NARD Chest - CTA bilaterally. CV - RRR S1/S2. Tele showing no significant dysrhythmias Abd - soft, NT/ND, +BS Ext - no pedal edema. Psych - normal mood and affect. Skin - warm and dry. DS: Data Data Completed and Pending Labs on day of discharge: Labs from last 24 hours 11/01/23 10/31/23 04:40 15:47 WBC 5.4 RBC 3.02 L Hgb 7.9 L 8.3 L Hct 24.9 L 26.7 L MCV 82.5 MCH 26.2 MCHC 31.7 L RDW 15.8 H Plt Count 177 MPV 11.3 H Sodium 136 L Potassium 3.3 L Chloride 108 H Carbon Dioxide 23 Anion Gap 5 L BUN 21 H Creatinine 1.20 H Estim Creat Clear Calc 36 Estimated GFR 44 L Glucose 108 Calcium 8.6 Discharge Plan Discharge Attending physician on discharge: James Coelho Consulting providers: Girma Wakefield Discharging Clinician: James Coelho Anticipated Discharge Date/Time: 11/01/23 13:08 Patient Disposition: Home, Self-Care Activity: as tolerated Diet: heart healthy Discharge Instructions: Check blood pressure 1 to 2 times a day. Record and bring into your doctor for review. Call your doctor if your blood pressure is greater than 180/110. Take precautions to avoid falls. Rise slowly from a lying or sitting position. Pause before standing or walking. Contact your doctor or call 911 and come to the Emergency Room if you have recurrent bleeding, lightheadedness with standing or other worrisome symptoms. Avoid NSAIDs (ibuprofen, naproxen, Aleve). Tylenol is safe to take. Be aware that your medications have changed: Verapamil ER 240mg one tablet daily (Dose decreased from 2 tablet daily) Follow-up with your primary care provider in 1-2 weeks. Please call f
--- NOTE | 2023-11-01 13:44 | WPDGIPROGNO ---
Progress Note: A&P Assessment and Plan (1) Acute upper GI bleeding: Code(s): K92.2 - Gastrointestinal hemorrhage, unspecified Status: Acute Assessment and Plan: from post polypectomy stomach performed at [facility] this was controlled with epi and more clips no more gib and h/h stable, last BM brown ppi twice daily for now she can go home and follow-up with her GI doctor (2) Hematemesis: Code(s): K92.0 - Hematemesis Status: Acute Assessment and Plan: resolved (3) Post-polypectomy bleeding: Status: Acute (4) Anemia: Code(s): D64.9 - Anemia, unspecified Status: Acute Subjective Date/time seen: 11/01/23 13:44 Interval history: last BM was brown, no more gib and she is comfortable Review of Systems Review of Systems: All systems reviewed & are unremarkable except as noted in HPI and below Exam Const: General: comfortable HENMT: Face/Nose/Sinus: Normal nares present Eyes: General: appearance normal, both eyes and all related structures Neck: Neck: supple Resp: Effort & Inspection: normal respiratory effort Cardio: Rhythm: regular rhythm GI: GI Palp: Yes Soft to palpation and No Tenderness to palpation present (GI) Auscultation: normal bowel sounds Skin: General skin exam: no rashes or lesions noted Neuro: Speech: normal speech Motor exam (neuro): 5/5 motor strength present throughout Extrem: General: normal to inspection Psych: Affect: normal affect Objective Data Vital Signs Vital Signs: Vital Signs - 24 hr 10/31/23 15:37 10/31/23 16:00 10/31/23 14:00 Temperature 98.0 F Pulse Rate 65 57 L Respiratory Rate 20 Blood Pressure 142/49 H Pulse Oximetry 100 Oxygen Delivery Room Air 10/31/23 16:00 10/31/23 18:00 10/31/23 20:37 Temperature 98.2 F Pulse Rate 61 62 73 Respiratory Rate 18 Blood Pressure 149/64 H Pulse Oximetry 99 Oxygen Delivery 10/31/23 23:25 10/31/23 20:00 10/31/23 23:33 Temperature 98.2 F Pulse Rate 75 73 75 Respiratory Rate 18 18 18 Blood Pressure 149/52 H Pulse Oximetry 99 99 99 Oxygen Delivery Room Air Room Air 10/31/23 20:00 10/31/23 22:00 11/01/23 00:00 Temperature Pulse Rate 65 70 73 Respiratory Rate Blood Pressure Pulse Oximetry Oxygen Delivery 11/01/23 02:00 11/01/23 04:00 11/01/23 05:09 Temperature 98.2 F Pulse Rate 74 67 76 Respiratory Rate 18 Blood Pressure 122/44 L Pulse Oximetry 99 Oxygen Delivery 11/01/23 04:00 11/01/23 05:21 10/31/23 22:10 Temperature Pulse Rate 76 61 Respiratory Rate 18 Blood Pressure Pulse Oximetry 99 99 Oxygen Delivery Room Air Room Air 11/01/23 08:00 11/01/23 09:54 11/01/23 08:00 Temperature 97.7 F Pulse Rate 86 Respiratory Rate 20 Blood Pressure 140/92 H Pulse Oximetry 96 Oxygen Delivery Room Air Room Air 11/01/23 12:00 11/01/23 08:00 11/01/23 12:00 Temperature 98.6 F Pulse Rate 78 84 85 Respiratory Rate 20 Blood Pressure 152/62 H Pulse Oximetry 100 Oxygen Delivery 11/01/23 10:00 Temperature Pulse Rate 83 Respiratory Rate Blood Pressure Pulse Oximetry Oxygen Delivery Intake/Output Intake/Output: Intake & Output 10/29/23 10/30/23 10/31/23 11/01/23 23:59 23:59 23:59 23:59 Intake Total 2350 1920 1270 1230 Output Total 756 758 8217 1000 Balance 1700 1308 -30 230 Meds/Results Medications: Active Medications Generic Name Dose Route Start Last Admin Trade Name Freq PRN Reason Stop Dose Admin Acetaminophen 650 mg 10/30/23 16:25 Acetaminophen 325 Mg Tablet PO Q6H PRN Pain Rated 5 or Less Hydrocodone Bitart/Acetaminophen 1 tab 10/30/23 16:25 Hydrocodone/Acetaminophen (*Crx) 5-325 Mg Tablet PO Q6H PRN Pain Rated 6 or Greater Cyclobenzaprine HCl 10 mg 10/30/23 16:25 Cyclobenzaprine Hcl 10 Mg Tablet PO TID PRN muscle spasm Ezetimibe 10 mg 10/31/23 09:00 11/01/23 0
--- NOTE | 2023-11-01 15:06 | PC.NURSE ---
Discharge Education given. The pt denies questions et displays verbal understanding through verbal demonstration. All belongings removed from the pts room per pt at the time of discharge. The pt was escorted to private family vehicle in a wheelchair with no manifestations of distress noted at the time of exit from the campus.
== END 2023-11-01 15:20 | disposition home or self-care (01) | DRG 920 ==
LOC: ANHED 09:38 → ANHICU 10:11 → ANHIMU 10-30 16:37
PROVIDERS: Internal Medicine Gastroenterology; Admitting Provider Internal Medicine; Emergency Provider Emergency Medicine; PCP Family Medicine; Visit Provider Internal Medicine
PROC: 0DJ08ZZ Inspection of Upper Intestinal Tract, Via Natural or Artificial Opening Endoscopic (ICD-10-PCS; CPT 43235; principal; 2023-10-30 16:30)
DX: K91.840 Postprocedural hemorrhage of a digestive system organ or structure following a digestive system procedure (principal); D62 Acute posthemorrhagic anemia; N17.9 Acute kidney failure, unspecified; I95.9 Hypotension, unspecified; T50.905A Adverse effect of unspecified drugs, medicaments and biological substances, initial encounter; I12.9 Hypertensive chronic kidney disease with stage 1 through stage 4 chronic kidney disease, or unspecified chronic kidney disease; N18.30 Chronic kidney disease, stage 3 unspecified; E78.5 Hyperlipidemia, unspecified; K21.9 Gastro-esophageal reflux disease without esophagitis; K57.90 Diverticulosis of intestine, part unspecified, without perforation or abscess without bleeding; R19.00 Intra-abdominal and pelvic swelling, mass and lump, unspecified site; Z86.16 Personal history of COVID-19; Z90.49 Acquired absence of other specified parts of digestive tract; Z90.710 Acquired absence of both cervix and uterus; Z90.722 Acquired absence of ovaries, bilateral; Z98.49 Cataract extraction status, unspecified eye; E66.9 Obesity, unspecified; Z68.34 Body mass index [BMI] 34.0-34.9, adult
CPT/HCPCS: 36415; 36430; 80048; 80053; 80069; 83735; 84443; 85014; 85018; 85025; 85027; 85610; 85730; 86850; 86880; 86900; 86901; 86902; 86922; 96361; 96374; 96375; 97161; 97165; 99285; A9270; C9113; G0378; J0171; J2270; J2704; J7030; J7040; J7120; P9016

== ENCOUNTER 2024-06-08 09:11 | Outpatient (CLI) | payer MEDICARE, SELFPAY ==
--- NOTE | ~2024-06-08 | XR_ITS ---
3 VIEWS THORACIC SPINE Ordering provider: Agustin Barahona MD History: . R07.81 - Pleurodynia . Comparison: January 24, 2022 FINDINGS: VERTEBRAL BODIES: Normal height and alignment. No visible fracture or subluxation. Degenerative perry es of the spine. Kyphosis unchanged from previous exam. DISK SPACES: Narrowing at multiple levels in the upper and midthoracic area. SOFT TISSUES: Normal. IMPRESSION: No acute osseous abnormality of the thoracic spine. No change from previous examination. Reviewed, dictated and finalized at location A.
--- NOTE | ~2024-06-08 | XR_ITS ---
[id number] Ordering provider: Agustin Barahona MD History: . R07.81 - Pleurodynia NON INJ CHRONIC PAIN . Comparison: None. FINDINGS: BONES: No acute rib fracture. MEDIASTINUM: The cardiac silhouette is not enlarged. LUNGS: No effusions or infiltrates. No pneumothorax. SOFT TISSUES: Normal. IMPRESSION: No acute osseous abnormality of the bilateral ribs. (Note: subtle/nondisplaced rib fractures can be o ccult on plain films and if there is continued clinical suspicion for rib fracture, recommend follow up CT chest.) Reviewed, dictated and finalized at location A. IMPRESSION: No acute osseous abnormality of the bilateral ribs. (Note: subtle/nondisplaced rib fractures can be occult on plain films and if there is continued clinical s uspicion for rib fracture, recommend follow up CT chest.)
[2024-06-08 10:08] LABS: Hematocrit 35.2 % (37.0-47.0); Hemoglobin 10.2 g/dL (12.0-15.0); Mean Corpuscular Hemoglobin 21.8 pg (26-34); Mean Corpuscular Volume 75.4 fl (80-100); Mean Platelet Volume 10.9 fl (7.4-10.4); Platelet Count Result 277 k/mm3 (150-375); Red Blood Count 4.67 M/mm3 (4.2-5.4); Red Cell Distribution Width 18.9 % (11.5-14.5); White Blood Count 4.2 K/mm3 (4.5-10.0)
[2024-06-08 10:14] LABS: Add Urine Microscopic? YES; Appearance Urine Cloudy (Clear); Bacteria Urine 1+ /hpf; Bilirubin Urine 1+ (Negative); Blood Urine Non-Hemolyzed Trace (Negative); Color Urine Dark Yellow (Yellow); Glucose Urine UA Negative (Negative); Ketones Urine Negative (Negative); Leukocyte Esterase Ur 3+ LEU/UL (Negative); Nitrate Urine Positive (Negative); Protein Urine Trace mg/dL (Negative); RBC Urine 0-2 /hpf (0-2); Specific Grav Ur 1.014 (1.001-1.035); Squamous Epithelial Cell Urine None Seen /hpf (Few); WBC Urine >100 /hpf (0-3)
[2024-06-08 10:24] LABS: Alanine Aminotransferase 21 U/L (6-35); Albumin Level 4.3 g/dL (3.5-5.1); Alkaline Phosphatase 57 U/L (38-126); Anion Gap 11 mmol/L (4-12); Aspartate Amino Transferase 45 U/L (14-36); Bilirubin,Total 0.5 mg/dL (0.2-1.3); Blood Urea Nitrogen 25 mg/dL (7-17); Calcium 9.1 mg/dL (8.4-10.2); Carbon Dioxide 22 mmol/L (22-30); Chloride 103 mmol/L (98-107); Cholesterol 142 mg/dL (0-200); Estimated Glomerular Filt Rate 36; Glucose 108 mg/dL (65-110); HDL Direct 39 mg/dL; Sodium 136 mmol/L (137-145); Triglycerides 162 mg/dL (<150)
[2024-06-08 10:27] LABS: Potassium 4.1 mmol/L (3.4-5.0)
[2024-06-08 10:34] LABS: LDL Cholesterol Direct 72 mg/dL
[2024-06-08 10:48] LABS: Hemoglobin A1C 6.2 % (<5.7)
== END 2024-06-08 09:12 | disposition home or self-care (01) ==
PROVIDERS: PCP Family Medicine; Visit Provider Family Medicine
DX: D64.9 Anemia, unspecified (principal); E78.2 Mixed hyperlipidemia; E87.6 Hypokalemia; K86.89 Other specified diseases of pancreas; M54.16 Radiculopathy, lumbar region; R53.1 Weakness; R73.03 Prediabetes; E87.1 Hypo-osmolality and hyponatremia; N18.30 Chronic kidney disease, stage 3 unspecified; N30.90 Cystitis, unspecified without hematuria; R07.81 Pleurodynia; M54.6 Pain in thoracic spine
CPT/HCPCS: 36415; 71110; 72072; 80053; 80061; 81001; 83036; 84443; 85027; 87086

== ENCOUNTER 2025-04-18 09:59 | Outpatient (CLI) | payer MEDICARE, SELFPAY ==
--- NOTE | ~2025-04-18 | MR_ITS ---
EXAMINATION: MR brain/brain stem wo con DATE: 04/18/2025 10:47 INDICATION: Amnesia TECHNIQUE: Magnetic resonance imaging (MRI) of the brain and brainstem was performed without intravenous contrast. Sequences included sagittal and axial T1-weighted SE, axial diffusion-weighted FS SE, axial 3D SWAN, axial T2-weighted FLAIR, and axial T2-weighted FSE. Apparent diffusion coefficient (ADC) maps were created. COMPARISON: 06/14/2018 FINDINGS: There are no areas of restricted diffusion to suggest acute infarction. Small old lacunar infarct versus prominent perivascular space at the left basal ganglia. No intracranial hemorrhage or abnormal intracranial mass lesion. There are scattered areas of nonspecific increased T2-weighted signal intensity in the cerebral white matter, predominantly involving the deep and periventricular white matter. There are no intraparenchymal signal abnormalities seen on the other pulse sequences. Symmetric prominence of the sulci consistent with mild age-appropriate diffuse cerebral volume loss. The ventricles are symmetric and normal in size. There are no abnormal extra-axial fluid collections. Flow voids are seen in the cerebral arteries on the T2-weighted sequences consistent with their expected patency. Changes of bilateral intraocular lens replacement. Visualized orbits and soft tissues are unremarkable. IMPRESSION: 1. Small old lacunar infarct versus prominent perivascular space at the left basal ganglia. No acute intracranial process. 2. Age-related changes including mild diffuse volume loss and moderate scattered periventricular predominant white matter T2 hyperintensity consistent with chronic small vessel ischemic disease. Reviewed, dictated and finalized at location A. IMPRESSION: 1. Small old lacunar infarct versus prominent perivascular space at the left ba rosalba ganglia. No acute intracranial process. 2. Age-related changes including mild diffuse volume loss and moderate scattere d periventricular predominant white matter T2 hyperintensity consistent with ch ronic small vessel ischemic disease.
== END 2025-04-18 10:00 | disposition home or self-care (01) ==
LOC: GOSHIMG 10:00
PROVIDERS: PCP Family Medicine; Visit Provider Family Medicine
DX: R41.3 Other amnesia (principal)
CPT/HCPCS: 70551

== ENCOUNTER 2025-05-15 13:23 | Emergency (ER) | payer MEDICARE, SELFPAY ==
--- NOTE | ~2025-05-15 | CT_ITS ---
Exam: CT abdomen and pelvis with contrast Clinical History: [Left lower quadrant pain. ] Comparison: [ 03/17/2023] Technique: Multiple axial CT images of the abdomen and pelvis were obtained with IV contrast. Sagittal and coronal reformatted images were obtained. FINDINGS: Lung bases: [Lung bases are clear ] Liver: [ No mass.] [ No intrahepatic biliary duct dilatation.] Gallbladder: Surgically absent. Common bile duct: Dilated measuring up to 2.6 cm in short axis similar to the study from 2022. No common duct stones identified. Spleen: [ Within normal limits.] Pancreas: [ No mass. No pancreatic fluid collection.] Adrenals: [ No masses.] Kidneys: [ No masses. No hydronephrosis.][ Stable cyst in the right kidney. Stable too small to characterize low-attenuation lesions in the kidneys.] Lymph nodes: [ No adenopathy in the abdomen or pelvis.] Stomach, small bowel and colon: Short segment thickening of the carr of the proximal sigmoid colon with a few scattered diverticuli and surrounding fat stranding. Prior surgical changes noted in the bowel. Peritoneum cavity: [ No mesenteric fat stranding or fluid.] Bladder: [ Unremarkable.] Osseous structures: [ No acute fracture or destructive lesion.] [ Multilevel degenerative change in the visualized spine.] Abdominal aorta: [ No aneurysm.] Additional findings: There is a 5 cm retroperitoneal mass which by report was previously biopsied with negative pathology. IMPRESSION: 1. Short segment focal thickening of the carr of the proximal sigmoid colon with a few scattered diverticuli and surrounding fat stranding. Findings are concerning for acute diverticulitis. Recommend follow-up to resolution to exclude an underlying mass. 2. There is a retroperitoneal mass which by report was previously biopsied with negative pathology. The finding is similar size and configuration as compared to the study from 2022. Correlate clinically. Reviewed, dictated and finalized at location Q. IMPRESSION: 1. Short segment focal thickening of the carr of the proximal sigmoid colon wi th a few scattered diverticuli and surrounding fat stranding. Findings are conc erning for acute diverticulitis. Recommend follow-up to resolution to exclude a n underlying mass. 2. There is a retroperitoneal mass which by report was previously biopsied with negative pathology. The finding is similar size and configuration as compared to the study from 2022. Correlate clinically.
[2025-05-15 13:29] VITALS: BP 192/88; PULSE 70; RESP 20; TEMP 36.5; O2SAT 99
--- OUTSIDE RECORDS SUMMARY | 2025-05-15 13:47 | XMS_ITS | Clinical Summary ---
Author Organization [facility] Address [address] [place] [address] Care Team Providers Care Sewer Separation Designer Name Role Phone Agustin Barahona MD Primary Care Provider [phone] Allergies Active Allergy Reactions Criticality Noted Date Comments Lisinopril Swelling Low 04/24/2023 Swollen tongue Naproxen Blood Disorder Medium 04/24/2023 Nose bleed Sulfa (Sulfonamide Antibiotics) Rash Low 04/24/2023 Medications fenofibrate (LOFIBRA) 160 mg Tablet Take 160 mg by mouth daily. 3 Active montelukast (SINGULAIR) 10 mg tablet Take 10 mg by mouth daily. 3 Active verapamiL (CALAN SR) 240 mg Sustained Release tablet Take 240 mg by mouth daily. Active omeprazole (PriLOSEC) 40 mg Capsule, Delayed Release(E.C.) Take 40 mg by mouth daily. Active ezetimibe (ZETIA) 10 mg tablet Take 10 mg by mouth daily. Active cyclobenzaprine (FLEXERIL) 10 mg tablet Take 10 mg by mouth 3 times daily as needed for Spasm. Active HYDROcodone-deepti taminophen (NORCO) 5-325 mg tablet Take 1 Tablet by mouth every 4 hours as needed for Pain, Moderate. Active loratadine-pseu doephedrine (CLARITIN-D) 5-120 mg Extended Release 12 hour tablet Take 1 Tablet by mouth 2 times daily as needed for Allergies or Congestion. Active Active Problems No known active problems Encounters Date Type Department Care Team Description 04/18/2025 External Device Data ST[facility] ABSTRACTION Provider, Abstract 04/05/2025 External Device Data [facility] ABSTRACTION Provider, Abstract 03/01/2025 External Device Data [facility] ABSTRACTION Provider, Abstract 03/01/2025 External Device Data [facility] ABSTRACTION Provider, Abstract 03/01/2025 External Device Data ST[facility] ABSTRACTION Provider, Abstract from Last 3 Months Family History Medical History Relation Name Comments Lung Cancer Father Breast Cancer Mother COPD Sister Cancer Sister Heart Disease Sister No Known Problems Son 1 No Known Problems Son 2 Colon Cancer Neg Hx Relation Name Status Comments Father Mother Sister Alive Son 1 Alive Son 2 Alive Social History Tobacco Use Types Packs/Day Years Used Date Smoking Tobacco: Never Smokeless Tobacco: Never Tobacco Cessation:Counseling Given: Not Answered Alcohol Use Standard Drinks/Week Comments Never 0 (1 standard drink = 0.6 oz pur e alcohol) Feeling Safe Answer Date Recorded Are you in a relationship wi th someone who hurts you emotionally and/or physically? No 12/05/2024 Comments No Sex and Gender Information Value Date Recorded Sex Assigned at Not on file Legal Sex Female 1:26 PM CDT Gender Identity Not on file Sexual Orientation Not on file Last Filed Vital Signs Vital Sign Reading Time Taken Comments Blood Pressure 124/74 12/05/2024 8:55 AM CDT Pulse 65 12/05/2024 8:55 AM CDT Temperature 36.1 C (97 F) 12/05/2024 8:36 AM CDT Respiratory Rate 16 12/05/2024 8:55 AM CDT Oxygen Saturation 100% 12/05/2024 8:55 AM CDT Inhaled Oxygen Concentration - - Weight 83.9 kg (185 lb) 12/05/2024 7:24 AM CDT Height 157.5 cm (5' 2) 12/05/2024 7:24 AM CDT Body Mass Index 33.84 12/05/2024 7:24 AM CDT Plan of Treatment Health Maintenance Due Date Last Done Comments DTAP/TDAP/TD VACCINES (1 - Tdap) 1966 PNEUMOCOCCAL VACCINE 50+ YEA RS (1 of 1 - PCV) 1997 ZOSTER VACCINE (1 of 2) 1997 OSTEOPOROSIS SCREENING 2012 RSV VACCINE (60+ or ) (1 - 1-dose 75+ series) 2022 INFLUENZA VACCINE (#1) 2025 05/16/2023 UPPER GI ENDOSCOPY 12/06/2027 12/05/2024, 0 10/19/2023, 07/29/2023, Additional history exists Medical Devices Implanted Type Area Box Lining Machine Operator Device Identifier Shelf Expiration Date Model / Serial / Lot Clip Hemoclip Instinct 7fr [id number] Oxzu-E-7-230- S [id number] - [id number] Implanted:Qty : 1 on 10/19/2023 by Neftali Melgar MD at [facility] Clip N/A: Stomach COOK- ENDOSCOPY - DEIDRA-COOK [id number] 07/07/2026 [id number] / / [id number] Clip Hemoclip Instinct 7fr [id number] Hlxu-Z-9-230- S [id number] - [id number] Implanted:Qty : 1 on 10/19/2023 by Neftali Melgar MD at [facility] Clip N/A: Stomach COOK- ENDOSCOPY - DEIDRA-COOK [id number] 08/24/2026 [id number] / / [id number] Clip Hemoclip Instinct 7fr [id number] Siou-O-1-230- S [id number] - [id number] Implanted:Qty : 1 on 10/19/2023 by Neftali Melgar MD at [facility] Clip N/A: Stomach COOK- ENDOSCOPY - DEIDRA-COOK [id number] 08/24/2026 [id number] / / [id number] Clip Hemoclip Instinct 7fr [id number] Fwhq-V-4-230- S [id number] - [id number] Implanted:Qty : 1 on 10/19/2023 by Neftali Melgar MD at [facility] Clip N/A: Stomach COOK- ENDOSCOPY - DEIDRA-COOK [id number] 08/24/2026 [id number] / / [id number] Clip Hemoclip Instinct 7fr [id number] Exwl-X-3-230- S [id number] - [id number] Implanted:Qty : 1 on 10/19/2023 by Neftali Melgar MD at [facility] Clip N/A: Stomach COOK- ENDOSCOPY - DEIDRA-COOK [id number] 08/24/2026 [id number] / / [id number] Clip Hemoclip Instinct 7fr [id number] Dsdw-P-2-230- S [id number] - [id number] Implanted:Qty : 1 on 10/19/2023 by Neftali Melgar MD at [facility] Clip N/A: Stomach COOK- ENDOSCOPY - DEIDRA-COOK [id number] 08/24/2026 [id number] / / [id number] Clip Hemoclip Instinct 7fr [id number] Vbqi-Z-5-230- S [id number] - [id number] Implanted:Qty : 1 on 10/19/2023 by Neftali Melgar MD at [facility] Clip N/A: Stomach COOK- ENDOSCOPY - DEIDRA-COOK [id number] 08/24/2026 [id number] / / [id number] Insurance [facility] [place] [address] [address] [facility] Address: [place] [address] Advance Directives For more information, please contact: [phone] * Full Code (Latest Code Status on File) Date Activated Date Inactivated Comments 12/05/2024 7:24 AM 12/05/2024 12:30 PM * Full Code Date Activated Date Inactivated Comments 10/19/2023 8:17 AM 10/19/2023 1:33 PM * Full Code Date Activated Date Inactivated Comments 07/29/2023 8:04 AM 07/29/2023 12:10 PM Care Teams Sewer Separation Designer Relationship Specialty Start Date End Date Agustin Barahona MD [address] [place] [address] PCP - General Family Practice 04/01/23
--- NOTE | 2025-05-15 14:01 | ED.GENADULT ---
HPI - General Adult General Chief complaint: Weakness Stated complaint: generalized weakness, N/V/D Time Seen by Provider: 05/15/25 13:37 History of Present Illness HPI narrative: Patient is a 72-year-old female who presents ER with weakness as well as nausea vomiting and lower abdominal pain. She is concerned that her diverticulitis is return. Began feeling unwell 2-3 weeks ago. She has been having pencil thin stools. She has left lower quadrant crampy pain. No fevers or chills or sweats. No alleviating factors. Poor oral intake of food water. Related Data Home Medications ?Medication ?Instructions ?Recorded ?Confirmed ?Last Taken ?Type loratadine-pseudoephedrine ER 10 1 tablet PO DAILY 12/02/23 06/17/24 Unknown History mg-240 mg tablet,extended [id number] (Claritin-D 24 Hour) Allergies Allergy/AdvReac Type Severity Reaction Status Date / Time lisinopril Allergy Unknown swollen Verified 05/15/25 13:29 tongue naproxen Allergy Unknown Nose bleeds Verified 05/15/25 13:29 Bgvtwny-VQO-PoL Reductase Allergy Unknown Stomach Verified 05/15/25 13:29 Inhibitor (Vpbzkjw-Jxz-Jtf pain Reductase Inhibitor) Sulfa (Sulfonamide Allergy Unknown Rash Verified 05/15/25 13:29 Antibiotics) [facility] Past Medical History Medical History Post-polypectomy bleeding Gastric polyp Hematemesis Chronic renal failure, stage 3 (moderate) Diverticulosis Hx SBO COVID-19 Small bowel obstruction Pancreatic mass Pancreatic cystic lesion with EUS and fine-needle aspiration at 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 History of total hysterectomy with bilateral salpingo-oophorectomy (BSO) At age 35-40, she had an abdominal hysterectomy with left salpingo-oophorectomy. 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 History of cholecystectomy Laparoscopic cholecystectomy H/O tubal ligation in her 30's Hx of tonsillectomy History of bowel resection 2018 - Right hemicolectomy with ileum to transverse colon anastomosis following cecal diverticulitis with perforation and abscess Status post cataract extraction Family History Family History Father Hypertension Family history of arthritis Family history of lung cancer Family history of colonic diverticulitis Family history of malignant neoplasm Mother Hypertension Family history of arthritis Family history of malignant neoplasm of breast in first degree relative Family history of colonic diverticulitis Sibling Patient's sister is in good health Family history of chronic obstructive pulmonary disease Social History Social History Social History: the patient is and has 2 sons. Both of her sons of the durable power trademark attorney for healthcare. The patient wishes to be a full code. The patient is a lifelong nonsmoker does not use any alcohol marijuana or illicit drugs. 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 code status full code. Smoking status: Never smoker Second hand tobacco smoke exposure: No Alcohol intake: never Substance use: never Substance use type: does not use Do You Feel Safe in your Home?: Yes Lack of Transportation: No Lack of Food: Never True Current Housing: I Have Housing Concerned About Future Housing: No Difficulty Paying Gas/Electric Bills: No Difficulty Paying for Meds: No Currently Unemployed: No Education: Associate Degree Difficulty w/ Childcare or Family Care: No Spiritual care concerns: No Course Course Emergency Course: Patient resting comfortably. Informed of results. Hydrated. Imaging without evidence of diverticulitis. Discharge with oral antibiotics. Vital Signs Vital signs: Vital Signs Temperature 97.7 F 05/15/25 13:29 Pulse Rate 70 05/15/25 13:29 Respiratory Rate 20 05/15/25 13:29 Blood Pressure 192/88 H 05/15/25 13:29 Pulse Oximetry 99 05/15/25 13:29 Oxygen Delivery Room Air 05/15/25 13:29 Temperature 97.7 F 05/15/25 13:29 Pulse Rate 70 05/15/25 14:38 Respiratory Rate 15 05/15/25 14:38 Blood Pressure 176/83 H 05/15/25 14:38 Pulse Oximetry 100 05/15/25 14:38 Oxygen Delivery Room Air 05/15/25 13:29 Medical Decision Making Vital Signs Vital Signs: Vital Signs Temperature 97.7 F 05/15/25 13:29 Pulse Rate 70 05/15/25 13:29 Respiratory Rate 20 05/15/25 13:29 Blood Pressure 192/88 H 05/15/25 13:29 Pulse Oximetry 99 05/15/25 13:29 Oxygen Delivery Room Air 05/15/25 13:29 Temperature 97.7 F 05/15/25 13:29 Pulse Rate 70 05/15/25 14:38 Respiratory Rate 15 05/15/25 14:38 Blood Pressure 176/83 H 05/15/25 14:38 Pulse Oximetry 100 05/15/25 14:38 Oxygen Delivery Room Air 05/15/25 13:29 Lab Data 05/15/25 14:01 05/15/25 14:01 Labs: Lab Results 05/15/25 05/15/25 Range/Units 14:01 14:39 WBC 6.2 (4.5-10.0) K/mm3 RBC 4.76 (4.2-5.4) M/mm3 Hgb 11.7 L (12.0-15.0) g/dL Hct 37.8 (37.0-47.0) % MCV 79.4 L (80-100) fl MCH 24.6 L (26-34) pg MCHC 31.0 L (32-36) g/dl RDW 16.5 H (11.5-14.5) % Plt Count 281 (150-375) k/mm3 MPV 10.6 H (7.4-10.4) fl Immature Gran % (Auto) 0.3 (0-0.5) % Neut % (Auto) 73.2 H (45.5-73.1) % Lymph % (Auto) 16.9 L (18.3-44.2) % [place] % (Auto) 8.2 (2.6-8.5) % Eos % (Auto) 0.3 (0-4.4) % Baso % (Auto) 1.1 (0.2-1.2) % Lymph # (Auto) 1.05 (0.9-3.2) K/mm3 [place] # (Auto) 0.5 (0.1-0.6) K/mm3 Eos # (Auto) 0.0 (0-0.3) K/mm3 Baso # (Auto) 0.1 (0.0-0.1) K/mm3 Abs Immat Gran (auto) 0.02 (0.00-0.031) K/mm3 Absolute Neuts (auto) 4.5 (1.3-6.7) K/mm3 Absolute Nucleated RBC 0.000 (0.0-0.012) K/mm3 Nucleated RBC % 0.0 (0.0-0.2) % Sodium 135 L (137-145) mmol/L Potassium 3.8 (3.4-5.0) mmol/L Chloride 104 (98-107) mmol/L Carbon Dioxide 16 L (22-30) mmol/L Anion Gap 15 H (4-12) mmol/L BUN 18 H (7-17) mg/dL Creatinine 1.18 H (0.7-1.0) mg/dL Estim Creat Clear Calc 33 ml/min Estimated GFR 44 L (59 - ) Glucose 93 (65-110) mg/dL Calcium 9.4 (8.4-10.2) mg/dL Total Bilirubin 0.7 (0.2-1.3) mg/dL AST 50 H (14-36) U/L ALT 25 (6-35) U/L Alkaline Phosphatase 58 (38-126) U/L Total Protein 7.9 (6.3-8.2) g/dL Albumin 4.4 (3.5-5.1) g/dL Lipase 85 (23-300) U/L Urine Color Dark yellow (Yellow) Urine Appearance Cloudy H (Clear) Urine pH 5.5 (5.0-9.0) Ur Specific [place] 1.025 (1.001-1.035) Urine Protein 2+ H (Negative) mg/dL Urine Glucose (UA) Negative (Negative) mg/dL Urine Ketones Trace H (Negative) mg/dL Ur Blood (Man) Negative (Negative) Urine Nitrate Negative (Negative) Urine Bilirubin Negative (Negative) Urine Urobilinogen 1.0 (<2.0) mg/dL Add Ur Microanalysis Reviewed Leukocyte Esterase Rfl Negative (Negative) ZACH/UL Urine RBC 0-2 (0-2) /hpf Urine WBC 0-5 (0-3) /hpf Ur Squamous Epith Cells Occasional (Few) /hpf Ur Transition Epith Cell Rare (None Seen) /hpf Urine Bacteria None seen /hpf Urine Casts >20 Hyaline Casts Present (None) /lpf Imaging Data Radiologist's impression: ITS Impressions Abdomen/Pelvis CT 05/15/25 15:12 IMPRESSION: 1. Short segment focal thickening of the carr of the proximal sigmoid colon with a few scattered diverticuli and surrounding fat stranding. Findings are concerning for acute diverticulitis. Recommend follow-up to resolution to exclude an underlying mass. 2. There is a retroperitoneal mass which by report was previously biopsied with negative pathology. The finding is similar size and configuration as compared to the study from 2022. Correlate clinically. Discharge Plan Discharge Clinical Impression: Diverticulitis Patient Disposition: Home Condition: Stable Instructions: Diverticulitis (ED), Diverticulitis Diet (ED) Additional Instructions: Return to the emergency department if you develop severe abdominal pain, severe nausea and vomiting to the point where you are unable to keep down fluids, if you develop chest pain or difficulty breathing, blood in your stool, dizziness or fainting, or if you develop any other new or concerning symptoms as these could be signs of more serious medical illness. Try to stay well hydrated. Patient Language: Turkish Prescriptions: New amoxicillin-pot clavulanate 875-125 mg tablet 1 tablet PO Q8H Qty: 21 0RF No Action telmisartan 80 mg tablet 80 mg PO DAILY Qty: 90 0RF donepezil 5 mg tablet 5 mg PO QHS Qty: 90 0RF Claritin-D 24 Hour 10-240 mg tablet extended release 24 hr 1 tablet PO DAILY nystatin 100,000 unit/gram cream 1 applic topical BID Qty: 30 1RF Rx Instructions: apply to rash along breast polysaccharide iron complex 150 mg iron Capsule 150 mg PO DAILY@0800 Qty: 30 0RF verapamil 240 mg Tablet Extended Release 240 mg PO DAILY Qty: 30 0RF hydrocodone-acetaminophen 5-325 mg tablet 1 tablet PO BID PRN (Reason: pain) Qty: 20 0RF montelukast 10 mg tablet See Rx Instructions .ROUTE .COMPLEX Qty: 90 1RF Dose Instruction: TAKE 1 TABLET BY MOUTH DAILY Rx Instructions: TAKE 1 TABLET BY MOUTH DAILY ezetimibe 10 mg tablet See Rx Instructions .ROUTE .COMPLEX Qty: 100 1RF Dose Instruction: TAKE 1 TABLET BY MOUTH DAILY Rx Instructions: TAKE 1 TABLET BY MOUTH DAILY omeprazole 40 mg capsule,delayed release(DR/EC) See Rx Instructions .ROUTE .COMPLEX Qty: 90 1RF Dose Instruction: TAKE 1 CAPSULE BY MOUTH EVERY DAY AT BEDTIME Rx Instructions: TAKE 1 CAPSULE BY MOUTH EVERY DAY AT BEDTIME fenofibrate 160 mg tablet See Rx Instructions .ROUTE .COMPLEX Qty: 90 0RF Dose Instruction: TAKE 1 TABLET BY MOUTH DAILY Rx Instructions: TAKE 1 TABLET BY MOUTH DAILY Follow-up/Referrals: Agustin Barahona MD [Primary Care Provider, Family Practice] - 1 Week
[2025-05-15] MEDS: LACTATED RINGERS 1,000 ML 999 ML IV CONT (14:03)
[2025-05-15 14:08] LABS: Hematocrit 37.8 % (37.0-47.0); Hemoglobin 11.7 g/dL (12.0-15.0); Immature Granulocyte Percent A 0.3 % (0-0.5); Lymphocytes Absolute Auto 1.05 K/mm3 (0.9-3.2); Mean Corpuscular HGB Conc 31.0 g/dl (32-36); Mean Corpuscular Hemoglobin 24.6 pg (26-34); Mean Corpuscular Volume 79.4 fl (80-100); Nucleated Red Blood Cells Absolute Auto 0.000 K/mm3 (0.0-0.012); Nucleated Red Blood Cells Perc 0.0 % (0.0-0.2); Platelet Count Result 281 k/mm3 (150-375); Red Blood Count 4.76 M/mm3 (4.2-5.4); White Blood Count 6.2 K/mm3 (4.5-10.0)
[2025-05-15 14:17] LABS: Alanine Aminotransferase 25 U/L (6-35); Albumin Level 4.4 g/dL (3.5-5.1); Alkaline Phosphatase 58 U/L (38-126); Anion Gap 15 mmol/L (4-12); Aspartate Amino Transferase 50 U/L (14-36); Bilirubin,Total 0.7 mg/dL (0.2-1.3); Blood Urea Nitrogen 18 mg/dL (7-17); Calcium 9.4 mg/dL (8.4-10.2); Carbon Dioxide 16 mmol/L (22-30); Chloride 104 mmol/L (98-107); Estimated CRCL calculation 33 ml/min; Estimated Glomerular Filt Rate 44; Glucose 93 mg/dL (65-110); Lipase 85 U/L (23-300); Potassium 3.8 mmol/L (3.4-5.0); Sodium 135 mmol/L (137-145); Total Protein 7.9 g/dL (6.3-8.2)
[2025-05-15 14:38] VITALS: BP 176/83; PULSE 70; RESP 15; O2SAT 100
--- OUTSIDE RECORDS SUMMARY | 2025-05-15 14:55 | XMS_ITS | Clinical Summary ---
Author Organization [facility] Address [address] [place] [address] Care Team Providers Care Religion Department Chair Name Role Phone Agustin Barahona MD Primary Care Provider [phone] Allergies Active Allergy Reactions Criticality Noted Date [...] history exists Medical Devices Implanted Type Area Legal Biller Device Identifier Shelf Expiration Date Model / Serial / Lot Clip Hemoclip Instinct 7fr [id number] Oaar-E-2-230- S [id number] - [id number] Implanted:Qty : 1 on 10/19/2023 by Neftali Melgar MD at [facility] Clip N/A: Stomach COOK- ENDOSCOPY - DEIDRA-COOK [id number] 07/07/2026 [id number] / / [id number] Clip Hemoclip Instinct 7fr [id number] Xeqt-Z-9-230- S [id number] - [id number] Implanted:Qty : 1 on 10/19/2023 by Neftali Melgar MD at [facility] Clip N/A: Stomach COOK- ENDOSCOPY - DEIDRA-COOK [id number] 08/24/2026 [id number] / / [id number] Clip Hemoclip Instinct 7fr [id number] Iuwg-N-1-230- S [id number] - [id number] Implanted:Qty : 1 on 10/19/2023 by Neftali Melgar MD at [facility] Clip N/A: Stomach COOK- ENDOSCOPY - DEIDRA-COOK [id number] 08/24/2026 [id number] / / [id number] Clip Hemoclip Instinct 7fr [id number] Womd-N-7-230- S [id number] - [id number] Implanted:Qty : 1 on 10/19/2023 by Neftali Melgar MD at [facility] Clip N/A: Stomach COOK- ENDOSCOPY - DEIDRA-COOK [id number] 08/24/2026 [id number] / / [id number] Clip Hemoclip Instinct 7fr [id number] Ouni-F-9-230- S [id number] - [id number] Implanted:Qty : 1 on 10/19/2023 by Neftali Melgar MD at [facility] Clip N/A: Stomach COOK- ENDOSCOPY - DEIDRA-COOK [id number] 08/24/2026 [id number] / / [id number] Clip Hemoclip Instinct 7fr [id number] Ecke-S-1-230- S [id number] - [id number] Implanted:Qty : 1 on 10/19/2023 by Neftali Melgar MD at [facility] Clip N/A: Stomach COOK- ENDOSCOPY - DEIDRA-COOK [id number] 08/24/2026 [id number] / / [id number] Clip Hemoclip Instinct 7fr [id number] Says-Y-8-230- S [id number] - [id number] Implanted:Qty : 1 on 10/19/2023 by Neftali Melgar MD at [facility] Clip N/A: Stomach COOK- ENDOSCOPY - DEIDRA-COOK [id number] 08/24/2026 [id number] / / [id number] Insurance [facility] [place] [address] [address] [facility] Address: [place] [address] Advance Directives For more information, please contact: [phone] * Full Code (Latest Code Status on File) Date Activated Date Inactivated Comments 12/05/2024 7:24 AM 12/05/2024 12:30 PM * Full Code Date Activated Date Inactivated Comments 10/19/2023 8:17 AM 10/19/2023 1:33 PM * Full Code Date Activated Date Inactivated Comments 07/29/2023 8:04 AM 07/29/2023 12:10 PM Care Teams Religion Department Chair Relationship Specialty Start Date End Date Agustin Barahona MD [address] [place] [address] PCP - General Family Practice 04/01/23
[2025-05-15 15:21] LABS: Add Urine Microscopic? YES; Appearance Urine Cloudy (Clear); Glucose Urine UA Negative (Negative); Leukocyte Esterase Ur Negative LEU/UL (Negative); Need Manual Microscopic Reviewed; Nitrate Urine Negative (Negative); Non Pathogenic Casts >20; Specific Grav Ur 1.025 (1.001-1.035)
[2025-05-15 16:12] VITALS: BP 188/95; PULSE 80; RESP 16; O2SAT 98
== END 2025-05-15 16:13 | disposition home or self-care (01) ==
PROVIDERS: Emergency Provider Emergency Medicine; PCP Family Medicine
DX: K57.32 Diverticulitis of large intestine without perforation or abscess without bleeding (principal); I12.9 Hypertensive chronic kidney disease with stage 1 through stage 4 chronic kidney disease, or unspecified chronic kidney disease; N18.30 Chronic kidney disease, stage 3 unspecified; R73.03 Prediabetes; K21.9 Gastro-esophageal reflux disease without esophagitis; Z86.16 Personal history of COVID-19; Z90.710 Acquired absence of both cervix and uterus; Z90.49 Acquired absence of other specified parts of digestive tract; Z98.49 Cataract extraction status, unspecified eye
CPT/HCPCS: 36415; 74177; 80053; 81001; 83690; 85025; 96360; 99284; J7120; Q9967

== ENCOUNTER 2025-05-30 08:55 | Outpatient (CLI) | payer MEDICARE, SELFPAY ==
--- NOTE | ~2025-05-30 | CT_ITS ---
EXAMINATION: CT chest abdomen pelvis w con DATE: 05/30/2025 09:24 INDICATION: Diverticulitis of multiple small and large intestine. TECHNIQUE: Computed tomography (CT) of the chest, abdomen, and pelvis was performed with 100 mL Omnipaque 350 intravenous contrast. Automated exposure control and iterative reconstruction technique were employed. The dose-length product was 786.97 mGy-cm. COMPARISON: CT abdomen and pelvis 05/15/2025, 07/15/18, 03/17/23, 06/01/22, PET/CT 05/02/21 FINDINGS: CHEST CT: The lungs demonstrate mild atelectasis. There are few scattered pulmonary nodules measuring up to 4 mm, likely benign. No pleural effusion. There are nodules in the thyroid measuring up to 2.4 cm. There is left atrial enlargement of the heart. No pericardial effusion. There are coronary artery calcifications. There is severe cervical and thoracic spondylosis. ABDOMEN/PELVIS CT: There is a changes of cholecystectomy. There is mild intrahepatic biliary duct dilatation. The common duct is dilated to 17 mm . The spleen, pancreas, and adrenal glands are normal. There are cysts in the kidneys measuring up to 4.2 cm on the right. There is a 4.8 x 3.3 x 4.8 cm mass abutting the duodenum and inferior vena cava that measured 4.6 x 3.6 x 4.1 cm on 03/17/23. There are scattered diverticula in the colon. There is wall thickening of the sigmoid colon. There are changes of right hemicolectomy. There are no pathologically enlarged lymph nodes. There is no free intraperitoneal fluid. There is severe lumbar spondylosis. IMPRESSION: 1. Wall thickening of the sigmoid colon, consistent with chronic diverticulitis. 2. 4.8 cm right retroperitoneal mass, stable from 03/17/2023 and increased in size from 06/01/22. No increased activity on PET on 05/02/21. The differential diagnosis includes gastrointestinal stromal tumor, duodenal diverticulum, venous malformation, chronic hematoma, and peritoneal inclusion cyst. Reviewed, dictated and finalized at location E. IMPRESSION: 1. Wall thickening of the sigmoid colon, consistent with chronic diverticulitis . 2. 4.8 cm right retroperitoneal mass, stable from 03/17/2023 and increased in siz e from 06/01/22. No increased activity on PET on 05/02/21. The differential diag nosis includes gastrointestinal stromal tumor, duodenal diverticulum, venous ma lformation, chronic hematoma, and peritoneal inclusion cyst.
--- OUTSIDE RECORDS SUMMARY | 2025-05-30 09:43 | XMS_ITS | Clinical Summary ---
Author Organization [facility] Address [address] [place] [address] Care Team Providers Care Media Relations Manager Name Role Phone Agustin Barahona MD Primary Care Provider [phone] Allergies Active Allergy Reactions Criticality Noted Date [...] history exists Medical Devices Implanted Type Area Waterworks Supervisor Device Identifier Shelf Expiration Date Model / Serial / Lot Clip Hemoclip Instinct 7fr [id number] Uwbn-C-4-230- S [id number] - [id number] Implanted:Qty : 1 on 10/19/2023 by Neftali Melgar MD at [facility] Clip N/A: Stomach COOK- ENDOSCOPY - DEIDRA-COOK [id number] 07/07/2026 [id number] / / [id number] Clip Hemoclip Instinct 7fr [id number] Dakq-D-2-230- S [id number] - [id number] Implanted:Qty : 1 on 10/19/2023 by Neftali Melgar MD at [facility] Clip N/A: Stomach COOK- ENDOSCOPY - DEIDRA-COOK [id number] 08/24/2026 [id number] / / [id number] Clip Hemoclip Instinct 7fr [id number] Entm-C-5-230- S [id number] - [id number] Implanted:Qty : 1 on 10/19/2023 by Neftali Melgar MD at [facility] Clip N/A: Stomach COOK- ENDOSCOPY - DEIDRA-COOK [id number] 08/24/2026 [id number] / / [id number] Clip Hemoclip Instinct 7fr [id number] Eewv-O-0-230- S [id number] - [id number] Implanted:Qty : 1 on 10/19/2023 by Neftali Melgar MD at [facility] Clip N/A: Stomach COOK- ENDOSCOPY - DEIDRA-COOK [id number] 08/24/2026 [id number] / / [id number] Clip Hemoclip Instinct 7fr [id number] Gkvk-U-8-230- S [id number] - [id number] Implanted:Qty : 1 on 10/19/2023 by Neftali Melgar MD at [facility] Clip N/A: Stomach COOK- ENDOSCOPY - DEIDRA-COOK [id number] 08/24/2026 [id number] / / [id number] Clip Hemoclip Instinct 7fr [id number] Qgwm-G-0-230- S [id number] - [id number] Implanted:Qty : 1 on 10/19/2023 by Neftali Melgar MD at [facility] Clip N/A: Stomach COOK- ENDOSCOPY - DEIDRA-COOK [id number] 08/24/2026 [id number] / / [id number] Clip Hemoclip Instinct 7fr [id number] Slcp-D-6-230- S [id number] - [id number] Implanted:Qty : 1 on 10/19/2023 by Neftali Melgar MD at [facility] Clip N/A: Stomach COOK- ENDOSCOPY - DEIDRA-COOK [id number] 08/24/2026 [id number] / / [id number] Insurance [facility] [place] [address] [address] Advance Directives For more information, please contact: [phone] * Full Code (Latest Code Status on File) Date Activated Date Inactivated Comments 12/05/2024 7:24 AM 12/05/2024 12:30 PM * Full Code Date Activated Date Inactivated Comments 10/19/2023 8:17 AM 10/19/2023 1:33 PM * Full Code Date Activated Date Inactivated Comments 07/29/2023 8:04 AM 07/29/2023 12:10 PM Care Teams Media Relations Manager Relationship Specialty Start Date End Date Agustin Barahona MD [address] [place] [address] PCP - General Family Practice 04/01/23
== END 2025-05-30 08:56 | disposition home or self-care (01) ==
PROVIDERS: PCP Family Medicine; Visit Provider Nurse Practitioner Family
DX: R19.01 Right upper quadrant abdominal swelling, mass and lump (principal); K57.40 Diverticulitis of both small and large intestine with perforation and abscess without bleeding; Z90.49 Acquired absence of other specified parts of digestive tract
CPT/HCPCS: 71260; 74177; Q9967

== ENCOUNTER 2025-06-06 11:52 | Emergency (ER) | payer MEDICARE, SELFPAY ==
--- NOTE | ~2025-06-06 | CT_ITS ---
CT abdomen pelvis w con Clinical History: llq abd pain, obstruction vs diverticulitis . Comparison: CT 05/30/2025 PET/CT 05/02/2021 Technique: Axial images lung bases to symphysis pubis IV contrast information not listed in PACS Coronal, sagittal reformats CT images acquired with automatic exposure control for dose reduction DLP: 529 mGy-cm Findings: Lung bases: Clear. Visualized heart and pericardium: Unremarkable. Liver: Steatosis. Gallbladder: Removed. Spleen: Unremarkable. Pancreas: Atrophy. Adrenal glands: Unremarkable. Kidneys: Right kidney- No hydronephrosis. No renal stones. Prominent cyst. Small probable cysts. Left kidney- No hydronephrosis. No renal stones. Small probable cyst. Distal esophagus/stomach: Small hiatal hernia. Small bowel loops: Normal caliber and wall thickness. Colon: Diverticula. Diffuse sigmoid wall thickening. Trace pericolonic stranding sigmoid colon. Suture line right hemicolon. Nodes: No enlarged nodes. Peritoneum: No ascites. No free air. 5 cm heterogeneous right upper quadrant focus posterior to duodenum unchanged. Differential diagnosis as before. Urinary bladder: Unremarkable. Uterus: Absent. Adnexa: No masses. Bones: No acute bony abnormality. Soft tissues: Unremarkable. Aorta: No aneurysm or dissection. Atherosclerotic disease IVC: Unremarkable. Main portal vein/SMV/splenic vein: Patent. IMPRESSION: 1. Long segment colitis distal descending colon through sigmoid, likely infectious and/or inflammatory. 2. Also worrisome for superimposed focal acute sigmoid diverticulitis on chronic diverticulitis. Reviewed, dictated and finalized at location R. IMPRESSION: 1. Long segment colitis distal descending colon through sigmoid, likely infect ious and/or inflammatory. 2. Also worrisome for superimposed focal acute sigmoid diverticulitis on chron ic diverticulitis.
[2025-06-06 11:54] VITALS: BP 147/90; PULSE 72; RESP 16; TEMP 36.3; O2SAT 100
[2025-06-06 12:17] LABS: Hematocrit 39.7 % (37.0-47.0); Hemoglobin 12.4 g/dL (12.0-15.0); Immature Granulocyte Percent A 0.5 % (0-0.5); Lymphocytes Absolute Auto 0.73 K/mm3 (0.9-3.2); Mean Corpuscular HGB Conc 31.2 g/dl (32-36); Mean Corpuscular Hemoglobin 24.9 pg (26-34); Mean Corpuscular Volume 79.7 fl (80-100); Nucleated Red Blood Cells Absolute Auto 0.000 K/mm3 (0.0-0.012); Nucleated Red Blood Cells Perc 0.0 % (0.0-0.2); Platelet Count Result 242 k/mm3 (150-375); Red Blood Count 4.98 M/mm3 (4.2-5.4); White Blood Count 4.3 K/mm3 (4.5-10.0)
[2025-06-06 12:44] LABS: Alanine Aminotransferase 26 U/L (6-35); Albumin Level 4.2 g/dL (3.5-5.1); Alkaline Phosphatase 62 U/L (38-126); Anion Gap 14 mmol/L (4-12); Aspartate Amino Transferase 52 U/L (14-36); Bilirubin,Total 0.8 mg/dL (0.2-1.3); Blood Urea Nitrogen 14 mg/dL (7-17); Calcium 9.1 mg/dL (8.4-10.2); Carbon Dioxide 21 mmol/L (22-30); Chloride 99 mmol/L (98-107); Estimated CRCL calculation 29 ml/min; Estimated Glomerular Filt Rate 38; Glucose 117 mg/dL (65-110); Lipase 90 U/L (23-300); Potassium 3.1 mmol/L (3.4-5.0); Sodium 134 mmol/L (137-145); Total Protein 7.6 g/dL (6.3-8.2)
--- NOTE | 2025-06-06 13:17 | ED_ITS ---
HPI - Abdominal Pain General Chief Complaint: Abdominal Pain Stated Complaint: I have diverticulitis Time Seen by Provider: 06/06/25 12:35 Source: patient Mode of arrival: ambulatory Limitations: no limitations History of Present Illness HPI narrative: This is a 80-year-old female with history CKD, diverticulitis, bowel obstructions, hypertension who presents to the ED for left lower quadrant abdominal pain for the past couple days. Patient states that for the past couple days she has been having left lower quadrant abdominal pain. She states that feels similar to episode earlier this month in which she was found to have AA partial obstruction that was relieved with fqwc-dyf-iqqccwp medications. She states also feels similar to prior episode of diverticulitis. Denies fevers, chills nausea vomiting. Last normal bowel movement was 2 days ago. She normally has a bowel movement every 2 days. Related Data Home Medications ?Medication ?Instructions ?Recorded ?Confirmed ?Last Taken ?Type loratadine-pseudoephedrine ER 10 1 tablet PO DAILY 05/18/25 Unknown History mg-240 mg tablet,extended [id number] (Claritin-D 24 Hour) Allergies Allergy/AdvReac Type Severity Reaction Status Date / Time lisinopril Allergy Unknown swollen Verified 06/06/25 11:58 tongue naproxen Allergy Unknown Nose bleeds Verified 06/06/25 11:58 Kxpftnc-NGZ-OkB Reductase Allergy Unknown Stomach Verified 06/06/25 11:58 Inhibitor (Ajbqmgv-Iye-Wga pain Reductase Inhibitor) Sulfa (Sulfonamide Allergy Unknown Rash Verified 06/06/25 11:58 Antibiotics) Review of Systems 2 Review of Systems: Gen.: Denies fevers or chills Eyes: Denies eye pain or visual change ENT: Denies congestion Respiratory: Denies shortness of breath or cough CV: Denies chest pain or palpitations GI: As per HPI denies burning, urgency, frequency or hematuria Musculoskeletal: Denies back pain or muscle pain Neuro: Denies numbness, tingling, weakness or focal weakness Skin: Denies rash Except as documented, all other systems reviewed and negative PMFSH Past Medical History Medical History Post-polypectomy bleeding Gastric polyp Hematemesis Chronic renal failure, stage 3 (moderate) Diverticulosis Hx SBO COVID-19 Small bowel obstruction Pancreatic mass Pancreatic cystic lesion with EUS and fine-needle aspiration at [facility] with cytology appearing benign Chronic GERD Hyperlipidemia Exposure to COVID-19 virus Exposure to COVID-19 virus Bilateral hip pain Screening for colon cancer Postmenopausal Screening for breast cancer Prediabetes History of diverticular abscess of colon History of Michel's palsy Essential (primary) hypertension Surgical History Surgical History History of major abdominal surgery History of appendectomy During her hysterectomy. History of total hysterectomy with bilateral salpingo-oophorectomy (BSO) At age 35-40, she had an abdominal hysterectomy with left salpingo- oophorectomy. 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 History of cholecystectomy Laparoscopic cholecystectomy H/O tubal ligation in her 30's Hx of tonsillectomy History of bowel resection 2018 - Right hemicolectomy with ileum to transverse colon anastomosis following cecal diverticulitis with perforation and abscess Status post cataract extraction Family History Family History Father Hypertension Family history of arthritis Family history of lung cancer Family history of colonic diverticulitis Family history of malignant neoplasm Mother Hypertension Family history of arthritis Family history of malignant neoplasm of breast in first degree relative Family history of colonic diverticulitis Sibling Patient's sister is in good health Family history of chronic obstructive pulmonary disease Social History Social History Social History: the patient is and has 2 sons. Both of her sons of the durable power disability attorney for healthcare. The patient wishes to be a full code. The patient is a lifelong nonsmoker does not use any alcohol marijuana or illicit drugs. 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 code status full code. Smoking status: Never smoker Second hand tobacco smoke exposure: No Alcohol intake: never Substance use: never Substance use type: does not use Do You Feel Safe in your Home?: Yes Lack of Transportation: No Lack of Food: Never True Current Housing: I Have Housing Concerned About Future Housing: No Difficulty Paying Gas/Electric Bills: No Difficulty Paying for Meds: No Currently Unemployed: No Education: Associate Degree Difficulty w/ Childcare or Family Care: No Spiritual care concerns: No Exam 2 Narrative: APPEARANCE: No acute distress, nontoxic, resting in bed EYES: EOMI HEENT: Normocephalic, atraumatic, OMM RESPIRATORY: No respiratory distress Clear to auscultation bilaterally with no rhonchi wheezing or rales. CARDIOVASCULAR: Regular rate and rhythm without murmurs rubs or gallops. ABDOMINAL: Soft, mild left lower quadrant tenderness to palpation, nondistended, no rebound or guarding. MUSCULOSKELETAl: Moves all extremities. No clubbing, cyanosis or edema. NEURO: Awake and alert. Following commands, speech normal, no focal deficits SKIN:: Warm, dry. No rashes lesions or abrasions PSYCHIATRIC: Normal affect/mood, Course Vital Signs Vital signs: Vital Signs Temperature 97.4 F L 06/06/25 11:54 Pulse Rate 72 06/06/25 11:54 Respiratory Rate 16 06/06/25 11:54 Blood Pressure 147/90 H 06/06/25 11:54 Pulse Oximetry 100 06/06/25 11:54 Oxygen Delivery Room Air 06/06/25 11:54 Temperature 97.4 F L 06/06/25 14:57 Pulse Rate 74 06/06/25 14:57 Respiratory Rate 18 06/06/25 14:57 Blood Pressure 143/82 H 06/06/25 14:57 Pulse Oximetry 99 06/06/25 14:57 Oxygen Delivery Room Air 06/06/25 11:54 MDM - Abdominal Pain MDM Narrative Medical decision making narrative: 80-year-old female presenting for left lower quadrant abdominal pain. On initial evaluation, patient was in no acute distress, afebrile, hemodynamically stable. She did have tenderness palpation to the left lower quadrant. Heart and lungs were clear. CBC was without significant abnormalities. Mild hypokalemia at 3.1. Mild SATYA with creatinine of 1.35. Lipase within normal limits. UA clear. CT abdomen/pelvis was consistent with diverticulitis with colitis. Patient was given 1 L NS bolus. She was started on Augmentin for the diverticulitis. Given that she has had recurrent episodes of diverticulitis, she was given referrals to GI and General surgery for further evaluation and management. Patient was agreeable to this plan. Given strict return precautions. Differential Diagnosis Differential diagnosis: Likely abdominal pain, calculus of kidney, constipation, diverticulitis, gastroenteritis and small bowel obstruction Medical Records Attestation: I reviewed the patient's medical records. Lab Data Attestation: I reviewed the patient's lab results. 06/06/25 12:09 06/06/25 12:09 Labs: Lab Results 06/06/25 06/06/25 Range/Units 12:09 13:45 WBC 4.3 L (4.5-10.0) K/mm3 RBC 4.98 (4.2-5.4) M/mm3 Hgb 12.4 (12.0-15.0) g/dL Hct 39.7 (37.0-47.0) % MCV 79.7 L (80-100) fl MCH 24.9 L (26-34) pg MCHC 31.2 L (32-36) g/dl RDW 15.9 H (11.5-14.5) % Plt Count 242 (150-375) k/mm3 MPV 11.0 H (7.4-10.4) fl Immature Gran % (Auto) 0.5 (0-0.5) % Neut % (Auto) 71.0 (45.5-73.1) % Lymph % (Auto) 16.9 L (18.3-44.2) % [place] % (Auto) 9.3 H (2.6-8.5) % Eos % (Auto) 0.7 (0-4.4) % Baso % (Auto) 1.6 H (0.2-1.2) % Lymph # (Auto) 0.73 L (0.9-3.2) K/mm3 [place] # (Auto) 0.4 (0.1-0.6) K/mm3 Eos # (Auto) 0.0 (0-0.3) K/mm3 Baso # (Auto) 0.1 (0.0-0.1) K/mm3 Abs Immat Gran (auto) 0.02 (0.00-0.031) K/mm3 Absolute Neuts (auto) 3.1 (1.3-6.7) K/mm3 Absolute Nucleated RBC 0.000 (0.0-0.012) K/mm3 Nucleated RBC % 0.0 (0.0-0.2) % Sodium 134 L (137-145) mmol/L Potassium 3.1 L (3.4-5.0) mmol/L Chloride 99 (98-107) mmol/L Carbon Dioxide 21 L (22-30) mmol/L Anion Gap 14 H (4-12) mmol/L BUN 14 (7-17) mg/dL Creatinine 1.35 H (0.7-1.0) mg/dL Estim Creat Clear Calc 29 ml/min Estimated GFR 38 L (59 - ) Glucose 117 H (65-110) mg/dL Calcium 9.1 (8.4-10.2) mg/dL Total Bilirubin 0.8 (0.2-1.3) mg/dL AST 52 H (14-36) U/L ALT 26 (6-35) U/L Alkaline Phosphatase 62 (38-126) U/L Total Protein 7.6 (6.3-8.2) g/dL Albumin 4.2 (3.5-5.1) g/dL Lipase 90 (23-300) U/L Urine Color Yellow (Yellow) Urine Appearance Clear (Clear) Urine pH 7.0 (5.0-9.0) Ur Specific [place] 1.018 (1.001-1.035) Urine Protein Negative (Negative) mg/dL Urine Glucose (UA) Negative (Negative) mg/dL Urine Ketones Negative (Negative) mg/dL Ur Blood (Man) Negative (Negative) Urine Nitrate Negative (Negative) Urine Bilirubin Negative (Negative) Urine Urobilinogen 0.2 (<2.0) mg/dL Add Ur Microanalysis Reviewed Leukocyte Esterase Rfl 1+ H (Negative) ZACH/UL Urine RBC 0-2 (0-2) /hpf Urine WBC 0-5 (0-3) /hpf Ur Squamous Epith Cells None seen (Few) /hpf Urine Bacteria None seen /hpf Urine Casts 0-2 Imaging Data Attestation: I personally reviewed and interpreted this imaging study as follows: Radiologist's impression: ITS Impressions Abdomen/Pelvis CT 06/06/25 13:39 IMPRESSION: 1. Long segment colitis distal descending colon through sigmoid, likely infectious and/or inflammatory. 2. Also worrisome for superimposed focal acute sigmoid diverticulitis on chronic diverticulitis. Discharge Plan Discharge Clinical Impression: Diverticulitis, Colitis Patient Disposition: Home Condition: Stable Instructions: Antibiotic Form, Diverticulitis (ED) Additional Instructions: You were found to have colitis with diverticulitis. You were given a prescription for Augmentin and Zofran, take these as prescribed. As you have had repeated bouts of diverticulitis he should follow up with either General surgery or GI, call their office this week to schedule an appointment. You may take Tylenol and ibuprofen for pain. Return to the ED for any new or worsening symptoms. For pain, discomfort or temperature greater than or equal to 100.8 ?F please alternate the following 2 medications as needed. First medication- acetaminophen/Tylenol- 1000mg every 6-8 hours as needed for above indications. Second medication- ibuprofen/Motrin-600mg every 6-8 hours as needed for above indication. Patient Language: Argentine Prescriptions: New amoxicillin-pot clavulanate 875-125 mg tablet 1 tablet PO Q8H 5 Days Qty: 15 0RF ondansetron 4 mg tablet,disintegrating 4 mg PO Q8H PRN (Reason: nausea and vomiting) Qty: 14 0RF No Action telmisartan 80 mg tablet 80 mg PO DAILY Qty: 90 0RF donepezil 5 mg tablet 5 mg PO QHS Qty: 90 0RF Saccharomyces boulardii [Florastor] 250 mg capsule 250 mg PO BID Qty: 60 0RF Claritin-D 24 Hour 10-240 mg tablet extended release 24 hr 1 tablet PO DAILY nystatin 100,000 unit/gram cream 1 applic topical BID Qty: 30 1RF Rx Instructions: apply to rash along breast polysaccharide iron complex 150 mg iron Capsule 150 mg PO DAILY@0800 Qty: 30 0RF hydrocodone-acetaminophen 5-325 mg tablet 1 tablet PO BID PRN (Reason: pain) Qty: 20 0RF omeprazole 40 mg capsule,delayed release(DR/EC) See Rx Instructions .ROUTE .COMPLEX Qty: 90 1RF Dose Instruction: TAKE 1 CAPSULE BY MOUTH EVERY DAY AT BEDTIME Rx Instructions: TAKE 1 CAPSULE BY MOUTH EVERY DAY AT BEDTIME fenofibrate 160 mg tablet See Rx Instructions .ROUTE .COMPLEX Qty: 90 0RF Dose Instruction: TAKE 1 TABLET BY MOUTH DAILY Rx Instructions: TAKE 1 TABLET BY MOUTH DAILY verapamil 240 mg tablet extended release 240 mg PO DAILY Qty: 90 1RF montelukast 10 mg tablet See Rx Instructions .ROUTE .COMPLEX Qty: 90 0RF Dose Instruction: TAKE 1 TABLET BY MOUTH DAILY Rx Instructions: TAKE 1 TABLET BY MOUTH DAILY ezetimibe 10 mg tablet See Rx Instructions .ROUTE .COMPLEX Qty: 100 1RF Dose Instruction: TAKE 1 TABLET BY MOUTH DAILY Rx Instructions: TAKE 1 TABLET BY MOUTH DAILY Follow-up/Referrals: Agustin Barahona MD [Primary Care Provider, Family Practice] Lino Urbina MD [Physician, Gastroenterology] Jeferson Taylor DO [Physician, General Surgery]
[2025-06-06] MEDS: SODIUM CHLORIDE 0.9% IV 1,000 ML 999 ML IV CONT (13:43)
[2025-06-06 14:18] LABS: Add Urine Microscopic? YES; Appearance Urine Clear (Clear); Glucose Urine UA Negative (Negative); Leukocyte Esterase Ur 1+ LEU/UL (Negative); Need Manual Microscopic Reviewed; Nitrate Urine Negative (Negative); Non Pathogenic Casts 0-2; Specific Grav Ur 1.018 (1.001-1.035)
--- OUTSIDE RECORDS SUMMARY | 2025-06-06 14:44 | XMS_ITS | Clinical Summary ---
[facility] Address [address] [place] [address] Care Team Providers Care Salsa Dance Instructor Name Role Phone Agustin Barahona MD Primary Care Provider [phone] Allergies Active Allergy Reactions Criticality Noted Date [...] history exists Medical Devices Implanted Type Area Melter Supervisor Oxygen Furnace Device Identifier Shelf Expiration Date Model / Serial / Lot Clip Hemoclip Instinct 7fr [id number] Zwna-R-2-230- S [id number] - [id number] Implanted:Qty : 1 on 10/19/2023 by Neftali Melgar MD at [facility] Clip N/A: [employer]- ENDOSCOPY - [facility] [id number] 07/07/2026 [id number] / / [id number] Clip Hemoclip Instinct 7fr [id number] Jezt-E-7-230- S [id number] - [id number] Implanted:Qty : 1 on 10/19/2023 by Neftali Melgar MD at [facility] Clip N/A: [employer]- ENDOSCOPY - [facility] [id number] 08/24/2026 [id number] / / [id number] Clip Hemoclip Instinct 7fr [id number] Jtqr-Q-6-230- S [id number] - [id number] Implanted:Qty : 1 on 10/19/2023 by Neftali Melgar MD at [facility] Clip N/A: [employer]- ENDOSCOPY - [facility] [id number] 08/24/2026 [id number] / / [id number] Clip Hemoclip Instinct 7fr [id number] Yagr-N-7-230- S [id number] - [id number] Implanted:Qty : 1 on 10/19/2023 by Neftali Melgar MD at [facility] Clip N/A: [employer]- ENDOSCOPY - [facility] [id number] 08/24/2026 [id number] / / [id number] Clip Hemoclip Instinct 7fr [id number] Eibk-V-1-230- S [id number] - [id number] Implanted:Qty : 1 on 10/19/2023 by Neftali Melgar MD at [facility] Clip N/A: [employer]- ENDOSCOPY - [facility] [id number] 08/24/2026 [id number] / / [id number] Clip Hemoclip Instinct 7fr [id number] Eiez-D-5-230- S [id number] - [id number] Implanted:Qty : 1 on 10/19/2023 by Neftali Melgar MD at [facility] Clip N/A: Stomach [employer]- ENDOSCOPY - [employer] [id number] 08/24/2026 [id number] / / [id number] Clip Hemoclip Instinct 7fr [id number] Qaxd-Z-8-230- S [id number] - [id number] Implanted:Qty : 1 on 10/19/2023 by Neftali Melgar MD at [facility] Clip N/A: St[employer]- ENDOSCOPY - [employer] [id number] 08/24/2026 [id number] / / [id number] Insurance Advance Directives For more information, please contact: [phone] * Full Code (Latest Code Status on File) Date Activated Date Inactivated Comments 12/05/2024 7:24 AM 12/05/2024 12:30 PM * Full Code Date Activated Date Inactivated Comments 10/19/2023 8:17 AM 10/19/2023 1:33 PM * Full Code Date Activated Date Inactivated Comments 07/29/2023 8:04 AM 07/29/2023 12:10 PM Care Teams Salsa Dance Instructor Relationship Specialty Start Date End Date Agustin Barahona MD [address] [place] [id number] PCP - General Family Practice 04/01/23
[2025-06-06 14:57] VITALS: BP 143/82; PULSE 74; RESP 18; TEMP 36.3; O2SAT 99
--- OUTSIDE RECORDS SUMMARY | 2025-06-06 15:42 | XMS_ITS | Clinical Summary ---
[facility] Address [address] [place] [address] Care Team Providers Care Clerical Support Specialist Name Role Phone Agustin Barahona MD Primary Care Provider [phone] Allergies Active Allergy Reactions Criticality Noted Date [...] history exists Medical Devices Implanted Type Area Client Administrator Device Identifier Shelf Expiration Date Model / Serial / Lot Clip Hemoclip Instinct 7fr [id number] Mvaq-J-0-230- S [id number] - [id number] Implanted:Qty : 1 on 10/19/2023 by Neftali Melgar MD at [facility] Clip N/A: St[employer]- ENDOSCOPY - [facility] [id number] 07/07/2026 [id number] / / [id number] Clip Hemoclip Instinct 7fr [id number] Zgzr-D-7-230- S [id number] - [id number] Implanted:Qty : 1 on 10/19/2023 by Neftali Melgar MD at [facility] Clip N/A: St[employer]- ENDOSCOPY - [facility] [id number] 08/24/2026 [id number] / / [id number] Clip Hemoclip Instinct 7fr [id number] Jeyg-W-6-230- S [id number] - [id number] Implanted:Qty : 1 on 10/19/2023 by Neftali Melgar MD at [facility] Clip N/A: [employer]- ENDOSCOPY - [facility] [id number] 08/24/2026 [id number] / / [id number] Clip Hemoclip Instinct 7fr [id number] Vwzr-F-1-230- S [id number] - [id number] Implanted:Qty : 1 on 10/19/2023 by Neftali Melgar MD at [facility] Clip N/A: Stom[employer]- ENDOSCOPY - [facility] [id number] 08/24/2026 [id number] / / [id number] Clip Hemoclip Instinct 7fr [id number] Xfgx-E-9-230- S [id number] - [id number] Implanted:Qty : 1 on 10/19/2023 by Neftali Melgar MD at [facility] Clip N/A: [employer]- ENDOSCOPY - [facility] [id number] 08/24/2026 [id number] / / [id number] Clip Hemoclip Instinct 7fr [id number] Ahoz-M-0-230- S [id number] - [id number] Implanted:Qty : 1 on 10/19/2023 by Neftali Melgar MD at [facility] Clip N/A: St[employer]- ENDOSCOPY - [employer] [id number] 08/24/2026 [id number] / / [id number] Clip Hemoclip Instinct 7fr [id number] Orkv-H-9-230- S [id number] - [id number] Implanted:Qty : 1 on 10/19/2023 by Neftali Melgar MD at [facility] Clip N/A: Stomach [employer]- ENDOSCOPY - [facility] [id number] 08/24/2026 [id number] / / [id number] Insurance Advance Directives For more information, please contact: [phone] * Full Code (Latest Code Status on File) Date Activated Date Inactivated Comments 12/05/2024 7:24 AM 12/05/2024 12:30 PM * Full Code Date Activated Date Inactivated Comments 10/19/2023 8:17 AM 10/19/2023 1:33 PM * Full Code Date Activated Date Inactivated Comments 07/29/2023 8:04 AM 07/29/2023 12:10 PM Care Teams Clerical Support Specialist Relationship Specialty Start Date End Date Agustin Barahona MD [address] [place] [address] PCP - General Family Practice 04/01/23
== END 2025-06-06 14:59 | disposition home or self-care (01) ==
PROVIDERS: Emergency Medicine; Emergency Provider Student in an Organized Health Care Education/Training Program; PCP Family Medicine
DX: K57.32 Diverticulitis of large intestine without perforation or abscess without bleeding (principal); K52.9 Noninfective gastroenteritis and colitis, unspecified; I12.9 Hypertensive chronic kidney disease with stage 1 through stage 4 chronic kidney disease, or unspecified chronic kidney disease; N18.30 Chronic kidney disease, stage 3 unspecified; E78.5 Hyperlipidemia, unspecified; R73.03 Prediabetes; K21.9 Gastro-esophageal reflux disease without esophagitis; Z86.16 Personal history of COVID-19; Z90.710 Acquired absence of both cervix and uterus; Z90.49 Acquired absence of other specified parts of digestive tract; Z90.721 Acquired absence of ovaries, unilateral; Z90.79 Acquired absence of other genital organ(s); Z98.49 Cataract extraction status, unspecified eye; Z79.899 Other long term (current) drug therapy
CPT/HCPCS: 36415; 74177; 80053; 81001; 83690; 85025; 87086; 96360; 99284; J7030; Q9967

== ENCOUNTER 2025-07-19 08:36 | Outpatient (CLI) | payer MEDICARE, SELFPAY ==
--- OUTSIDE RECORDS SUMMARY | 2025-07-19 09:02 | XMS_ITS | Clinical Summary ---
[facility] Address [address] [place] [address] Care Team Providers Care Jockey Valet Name Role Phone Agustin Barahona MD Primary Care Provider [phone] Allergies Active Allergy Reactions Criticality Noted Date [...] Encounters Date Type Department Care Team Description 06/06/2025 External Device Data ST[facility] ABSTRACTION Provider, Abstract [...] history exists Medical Devices Implanted Type Area Acquisitions Logistics Analyst Device Identifier Shelf Expiration Date Model / Serial / Lot Clip Hemoclip Instinct 7fr [id number] Nkxy-W-4-230- S [id number] - [id number] Implanted:Qty : 1 on 10/19/2023 by Neftali Melgar MD at [facility] Clip N/A: Stomach COOK- ENDOSCOPY - [employer] [id number] 07/07/2026 [id number] / / [id number] Clip Hemoclip Instinct 7fr [id number] Iznu-D-3-230- S [id number] - [id number] Implanted:Qty : 1 on 10/19/2023 by Neftali Melgar MD at [facility] Clip N/A: Stomach COOK- ENDOSCOPY - [employer] [id number] 08/24/2026 [id number] / / [id number] Clip Hemoclip Instinct 7fr [id number] Dzru-B-7-230- S [id number] - [id number] Implanted:Qty : 1 on 10/19/2023 by Neftali Melgar MD at [facility] Clip N/A: Stomach COOK- ENDOSCOPY - [employer] [id number] 08/24/2026 K02068 / / [id number] Clip Hemoclip Instinct 7fr [id number] Ozuc-H-6-230- S [id number] - [id number] Implanted:Qty : 1 on 10/19/2023 by Neftali Melgar MD at [facility] Clip N/A: Stomach COOK- ENDOSCOPY - [employer] [id number] 08/24/2026 X23798 / / [id number] Clip Hemoclip Instinct 7fr [id number] Pcgz-S-8-230- S [id number] - [id number] Implanted:Qty : 1 on 10/19/2023 by Neftali Melgar MD at [facility] Clip N/A: Stomach COOK- ENDOSCOPY - [employer] [id number] 08/24/2026 [id number] / / [id number] Clip Hemoclip Instinct 7fr [id number] Gekb-K-3-230- S [id number] - [id number] Implanted:Qty : 1 on 10/19/2023 by Neftali Melgar MD at [facility] Clip N/A: Stomach COOK- ENDOSCOPY - [employer] [id number] 08/24/2026 R30304 / / [id number] Clip Hemoclip Instinct 7fr [id number] Kskx-N-4-230- S G34448 - [id number] Implanted:Qty : 1 on 10/19/2023 by Neftali Melgar MD at [facility] Clip N/A: Stomach [employer]OOK- ENDOSCOPY - [employer] [id number] 08/24/2026 [id number] / / [id number] Insurance [place] [id number] Advance Directives For more information, please contact: [phone] * Full Code (Latest Code Status on File) Date Activated Date Inactivated Comments 12/05/2024 7:24 AM 12/05/2024 12:30 PM * Full Code Date Activated Date Inactivated Comments 10/19/2023 8:17 AM 10/19/2023 1:33 PM * Full Code Date Activated Date Inactivated Comments 07/29/2023 8:04 AM 07/29/2023 12:10 PM Care Teams Jockey Valet Relationship Specialty Start Date End Date Agustin Barahona MD [address] [place] [id number] PCP - General Family Practice 04/01/23
[2025-07-19 09:26] LABS: Hematocrit 37.6 % (37.0-47.0); Hemoglobin 11.5 g/dL (12.0-15.0); Immature Granulocyte Percent A 0.3 % (0-0.5); Immature Platelet Fraction Pct 13.1 % (0.9-11.2); Lymphocytes Absolute Auto 1.13 K/mm3 (0.9-3.2); Mean Corpuscular HGB Conc 30.6 g/dl (32-36); Mean Corpuscular Hemoglobin 25.3 pg (26-34); Mean Corpuscular Volume 82.6 fl (80-100); Nucleated Red Blood Cells Absolute Auto 0.000 K/mm3 (0.0-0.012); Nucleated Red Blood Cells Perc 0.0 % (0.0-0.2); Platelet Count Result 167 k/mm3 (150-375); Red Blood Count 4.55 M/mm3 (4.2-5.4); White Blood Count 4.0 K/mm3 (4.5-10.0)
[2025-07-19 09:28] LABS: Add Urine Microscopic? YES; Appearance Urine Clear (Clear); Glucose Urine UA Negative (Negative); Leukocyte Esterase Ur 2+ LEU/UL (Negative); Nitrate Urine Negative (Negative); Specific Grav Ur 1.013 (1.001-1.035)
[2025-07-19 09:45] LABS: Hemoglobin A1C 5.5 % (<5.7)
[2025-07-19 09:47] LABS: Iron 111 ug/dL (37-170)
[2025-07-19 09:52] LABS: Alanine Aminotransferase 22 U/L (6-35); Albumin Level 4.7 g/dL (3.5-5.1); Alkaline Phosphatase 54 U/L (38-126); Anion Gap 9 mmol/L (4-12); Aspartate Amino Transferase 46 U/L (14-36); Bilirubin,Total 0.9 mg/dL (0.2-1.3); Blood Urea Nitrogen 20 mg/dL (7-17); Calcium 9.6 mg/dL (8.4-10.2); Carbon Dioxide 24 mmol/L (22-30); Chloride 105 mmol/L (98-107); Cholesterol 149 mg/dL (0-200); Estimated Glomerular Filt Rate 58; Glucose 101 mg/dL (65-110); HDL Direct 54 mg/dL; Magnesium 1.9 mg/dL (1.6-2.3); Potassium 4.0 mmol/L (3.4-5.0); Sodium 138 mmol/L (137-145); Total Protein 8.5 g/dL (6.3-8.2); Triglycerides 131 mg/dL (<150)
[2025-07-19 09:58] LABS: Percent Iron Saturation 22 % (20-50)
[2025-07-19 10:29] LABS: Ferritin 16.20 ng/mL (11.1-264)
[2025-07-19 10:47] LABS: Vitamin B12 265.0 pg/mL (239-931)
[2025-07-25 13:09] LABS: Summary Report (Summary) FINAL (.)
== END 2025-07-19 08:37 | disposition home or self-care (01) ==
LOC: ANHLAB 08:37
PROVIDERS: PCP Family Medicine; Referring Provider Family Medicine; Visit Provider Nurse Practitioner Family
DX: E78.2 Mixed hyperlipidemia (principal); I10 Essential (primary) hypertension; R73.03 Prediabetes; E66.9 Obesity, unspecified; D64.9 Anemia, unspecified; Z00.00 Encounter for general adult medical examination without abnormal findings; Z79.899 Other long term (current) drug therapy; R42 Dizziness and giddiness; M25.552 Pain in left hip; M25.551 Pain in right hip
CPT/HCPCS: 36415; 80053; 80061; 80307; 81001; 82172; 82306; 82607; 82728; 83036; 83540; 83550; 83735; 85025; 85055

== ENCOUNTER 2025-07-28 11:42 | Outpatient (CLI) | payer MEDICARE, SELFPAY ==
[2025-07-28 12:37] LABS: Add Urine Microscopic? YES; Appearance Urine Clear (Clear); Glucose Urine UA Negative (Negative); Leukocyte Esterase Ur Trace LEU/UL (Negative); Need Manual Microscopic Reviewed; Nitrate Urine Negative (Negative); Specific Grav Ur 1.027 (1.001-1.035)
== END 2025-07-28 11:43 | disposition home or self-care (01) ==
PROVIDERS: PCP Family Medicine; Visit Provider Family Medicine
DX: N39.0 Urinary tract infection, site not specified (principal); A49.9 Bacterial infection, unspecified
CPT/HCPCS: 81001; 87086